=== PATIENT | female | born 1985 | race Caucasian/White ===

== ENCOUNTER 2022-11-19 11:12 | Outpatient (CLI) | payer OTHER, SELFPAY ==
--- NOTE | 2022-11-19 11:15 | CRLHL7_ITS ---
For Patients: As a result of the Cures Act, medical imaging exams and procedure reports are released immediately into your electronic medical record. You may view this report before your referring provider. If you have questions, please contact your health care provider. INDICATION: Lower leg pain COMPARISON: None. TECHNIQUE: A compression venous ultrasound exam was performed of the left lower extremity using zurita-scale imaging, color Doppler and spectral Doppler analysis. FINDINGS: Hypoechoic incompletely compressible clot noted within the distal left popliteal vein. Additional hypoechoic noncompressible clot located within the posterior tibial and peroneal veins. The left femoral vein and common femoral vein are patent. The deep femoral vein is also patent, as visualized. Hypoechoic noncompressible clot also located within the left greater saphenous vein within the mid and distal calf. Normal patency of the right common femoral vein. IMPRESSION: Positive exam for DVT within the left distal popliteal vein, posterior tibial veins and peroneal veins. Superficial clot within the mid and left calf involving the greater saphenous vein. Dr. Landry aware of the above findings and the patient has been sent to the emergency department. Dictated by Ángel Moncada MD @ 11/19/2022 12:14:15 PM (Electronically Signed)
== END 2022-11-19 11:13 | disposition home or self-care (01) ==
PROVIDERS: Visit Provider Family Medicine
DX: M79.662 Pain in left lower leg (principal); I82.4Z2 Acute embolism and thrombosis of unspecified deep veins of left distal lower extremity; I82.442 Acute embolism and thrombosis of left tibial vein
CPT/HCPCS: 93971

== ENCOUNTER 2022-11-19 11:53 | Observation (INO) | payer OTHER, SELFPAY ==
[2022-11-19] VITALS (26 sets, daily range): BP systolic 115–152; BP diastolic 17–110; PULSE 64–93; RESP 14–18; TEMP 35.5–36.8; O2SAT 94–100; BMI 30.7; BMI 31.2
--- NOTE | 2022-11-19 12:46 | CRLHL7_ITS ---
For Patients: As a result of the Century Cures Act, medical imaging exams and procedure reports are released immediately into your electronic medical record. You may view this report before your referring provider. If you have questions, please contact your health care provider. INDICATION: DVT, shortness of breath, recent COVID. COMPARISON: None. TECHNIQUE: CT chest angiogram PE protocol acquired with 95 cc of Omnipaque 350 IV contrast. Coronal and sagittal reconstructions. Axial 2D MIPS. FINDINGS: Normal heart size. Normal caliber thoracic aorta and central pulmonary arteries. There are acute pulmonary emboli in the segmental and subsegmental branches of all the lobes bilaterally. Clot burden is moderate. No evidence of right heart strain. The RV/LV ratio measures 0.9. No pericardial effusion. No thoracic lymphadenopathy. The imaged thyroid gland is normal in appearance. There is a small pleural-based density in the lateral right lower lobe which may represent a focus of infection or developing pulmonary infarct (series 5, image 107). Bibasilar atelectasis left greater than right. No pleural effusion or pneumothorax. No suspicious pulmonary nodules. No central endobronchial lesion or significant bronchial wall thickening. Cholecystectomy. The visualized upper abdomen is otherwise unremarkable. The bones are within normal limits. IMPRESSION: 1. Moderate burden acute pulmonary emboli involving bilateral segmental and subsegmental pulmonary artery branches. No evidence of right heart strain. 2. Small pleural-based density in the lateral right lower lobe may represent a focus of infection or developing pulmonary infarct. 3. Findings discussed with Anthony Cruz at 3:38 p.m. on 11/19/2022. Please note that all CT scans at this facility use dose modulation, iterative reconstruction, and/or weight-based dosing when appropriate to reduce radiation dose to as low as reasonably achievable. Dictated by Jessica Da Silva MD @ 11/19/2022 3:29:56 PM (Electronically Signed)
[2022-11-19 13:19] LABS: Chloride* 109 mmol/L (96-114); Sodium* 141 mmol/L (135-149)
[2022-11-19 13:20] LABS: Potassium* 4.4 mmol/L (3.6-5.1)
--- NOTE | 2022-11-19 13:20 | ED_ITS ---
HPI - General Adult General Chief complaint: Shortness of Breath/Dyspnea Stated complaint: DVT, shortness of breath Time Seen by Provider: 11/19/22 13:16 History of Present Illness HPI narrative: Patient was seen in clinic for left leg pain and was subsequently dx with dvt. Due to ongoing SOB and recent Covid it was recommended she be ruled out for PE. 37-year-old woman presenting to the emergency department with concern of shortness of breath. Worse over the last couple of weeks. Was also recently diagnosed with COVID. Clearly there are concerns for potential pulmonary embolus. No fever. Has been notably exertionally dyspneic. No complaint of abdominal pain. Included below is ultrasound from earlier today positive DVT. In further review of systems later does not recall history of anemia, heavy menstrual bleeding. No melena or hematochezia noted. IMPRESSION: Positive exam for DVT within the left distal popliteal vein, posterior tibial veins and peroneal veins. Superficial clot within the mid and left calf involving the greater saphenous vein. Related Data Home Medications Medication Instructions Recorded Confirmed cyclobenzaprine 5 mg tablet 5 mg PO TID PRN 03/29/22 11/23/22 gabapentin 300 mg capsule 1,200 mg PO HS 03/29/22 11/23/22 rimegepant 75 mg disintegrating 75 mg PO DAILY PRN 03/29/22 11/23/22 tablet (Nurtec ODT) topiramate 25 mg tablet 50 - 100 mg PO BID 03/29/22 11/23/22 venlafaxine 225 mg tablet,extended 225 mg PO HS 03/29/22 11/23/22 release 24 hr propranolol 20 mg tablet 20 mg PO BID 11/19/22 11/23/22 Previous Rx's Medication Instructions Recorded codeine 10 mg-guaifenesin 100 mg/5 5 ml PO Q4-6H PRN cough #120 mL 03/29/22 mL oral liquid fluticasone 250 mcg-salmeterol 50 1 inh inhalation BID #60 ea 11/19/22 mcg/dose blistr powdr for inhalation (Advair Diskus) montelukast 10 mg tablet 10 mg PO QHS #90 tabs 11/19/22 (Singulair) albuterol sulfate 90 mcg/actuation 2 puff inhalation Q4H PRN 11/20/22 aerosol inhaler shortness of breath or wheezing #8.5 grams iron,carbonyl 65 mg-vitamin C 125 1 tab PO BID #60 tabs 11/23/22 mg tablet,delayed release (Vitron-C) peg 3350-electrolytes 236 4,000 ml PO DIRECTED #4,000 mL 11/23/22 gram-22.74 gram-6.74 gram-5.86 gram solution (Golytely) peg 3350-electrolytes 236 240 ml PO ONCE #4,000 mL 11/26/22 gram-22.74 gram-6.74 gram-5.86 gram solution (Golytely) apixaban 5 mg (74 tabs) tablets in 5 mg PO BID #74 ea 12/14/22 a dose pack omeprazole 20 mg capsule,delayed 20 mg PO Q12H #60 caps 12/14/22 release Allergies Allergy/AdvReac Type Severity Reaction Status Date / Time neomycin Allergy Mild Itching Verified 11/23/22 11:31 Review of Systems Status of ROS: Reports: 6 or more systems reviewed and unremarkable except as noted in History and below [facility] Medical History (Updated 12/02/22 @ 14:10 by Todd Landry MD) Anemia ?D64.9 - Anemia, unspecified (ICD-10) COVID-19 ?U07.1 - COVID-19 (ICD-10) 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 (ICD-10) Microcytic anemia ?D50.9 - Iron deficiency anemia, unspecified (ICD-10) Chronic headache ?R51.9 - Headache, unspecified (ICD-10) ?G89.29 - Other chronic pain (ICD-10) Asthma, allergic ?J45.909 - Unspecified asthma, uncomplicated (ICD-10) Surgical History (Updated 11/19/22 @ 19:11 by Man Ceballos MD) History of section ?Z98.891 - History of uterine scar from previous surgery (ICD-10) History of laparoscopic cholecystectomy ?Z90.49 - Acquired absence of other specified parts of digestive tract (ICD- 10) Family History (Updated 11/19/22 @ 19:12 by Man Ceballos MD) Mother Breast cancer Fibromyalgia BRCA gene mutation positive in female Father ALS (amyotrophic lateral sclerosis) Social History (Updated 11/19/22 @ 19:13 by Man Ceballos MD) Narrative: 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 She does not smoke. What is your current living situation?: I presently have a place to live Problems where you live: no known problems Problems where you live details: none In the past 12 months, utilities in danger of being shut off: no In past 12 months, lack of transportation kept you from medical appts, meetings, work, or getting things needed for daily living: no In the past 12 mos, have been you worried that your food would run out before you had money to buy more?: never true In the past 12 mos, the food you bought just didn't last and you didn't have money to buy more?: never true Highest level of school completed/degree received: Master's degree Smoking Status: Never smoker Do you use any of these nicotine containing products: None Second hand tobacco smoke exposure: No How often do you have a drink containing alcohol: monthly or less How often do you have six or more drinks on one occasion: Never AUDIT-C Alcohol total score: 1 Non-prescribed substance use: denies use Caffeine: No How often does anyone, including family, friends and others, physically hurt you : never How often does anyone, including family, friends and others, insult or talk down to you: never How often does anyone, including family, friends and others, threaten you with harm: never How often does anyone, including family, friends and others, scream or curse at you: never service: No Exam Narrative: Exam Narrative: Pleasant. NAD. Breathing easily. Skin is warm and dry. Pale lips/mucous membranes. Lower extremities with prominent left leg varicose veins and mid calf tenderness. Heart is in mildly elevated rate in a regular rhythm without murmur rub or gallop. Lungs appear to be clear. Abdomen soft. Const: Vital Signs, click to edit/add: Vital Signs - 24 hr 11/19/22 11:59 Temperature 97.4 F L Pulse Rate [Pulse Oximeter] 93 Respiratory Rate 18 Blood Pressure [Ri ght Upper Arm] 136/85 Pulse Oximetry 100 Oxygen Delivery Me thod Room Air Documenting provider has reviewed patient's vital signs: yes Course Vital Signs Vital signs: Initial Vital Signs Temperature 97.4 F L 11/19/22 11:59 Temperature Source Temporal Artery Scan 11/19/22 11:59 Pulse Rate 93 11/19/22 11:59 Respiratory Rate 18 11/19/22 11:59 Blood Pressure 136/85 11/19/22 11:59 Blood Pressure Mean 102 11/19/22 11:59 Pulse Oximetry 100 11/19/22 11:59 Oxygen Delivery Method Room Air 11/19/22 11:59 Vital Signs Temperature 97.4 F L 11/19/22 11:59 Pulse Rate 93 11/19/22 11:59 Respiratory Rate 18 11/19/22 11:59 Blood Pressure 136/85 11/19/22 11:59 Pulse Oximetry 100 11/19/22 11:59 Oxygen Delivery Method Room Air 11/19/22 11:59 Temperature 98 F 11/20/22 07:00 Pulse Rate 74 11/20/22 07:00 Respiratory Rate 18 11/20/22 07:00 Blood Pressure 127/87 11/20/22 07:00 Pulse Oximetry 100 11/20/22 07:00 Oxygen Delivery Method Room Air 11/20/22 07:00 Medical Decision Making MDM Narrative Medical decision making narrative: Dyspnea could be secondary to pulmonary embolus or pneumonia, pneumothorax, CHF, anemia. With recent DVT diagnosis increased dyspnea I think imaging of her chest regardless of labs. Will check corresponding labs. White count is mildly elevated. Surprisingly hemoglobin of 7.2. There is not appear to be any particular source. Looks to be microcytic distribution. Likely of some duration as she appears to be compensated. I did review CT images of the chest. Radiology over-read as below INDICATION: DVT, shortness of breath, recent COVID. COMPARISON: None. TECHNIQUE: CT chest angiogram PE protocol acquired with 95 cc of Omnipaque 350 IV contrast. Coronal and sagittal reconstructions. Axial 2D MIPS. FINDINGS: Normal heart size. Normal caliber thoracic aorta and central pulmonary arteries. There are acute pulmonary emboli in the segmental and subsegmental branches of all the lobes bilaterally. Clot burden is moderate. No evidence of right heart strain. The RV/LV ratio measures 0.9. No pericardial effusion. No thoracic lymphadenopathy. The imaged thyroid gland is normal in appearance. There is a small pleural-based density in the lateral right lower lobe which may represent a focus of infection or developing pulmonary infarct (series 5, image 107). Bibasilar atelectasis left greater than right. No pleural effusion or pneumothorax. No suspicious pulmonary nodules. No central endobronchial lesion or significant bronchial wall thickening. Cholecystectomy. The visualized upper abdomen is otherwise unremarkable. The bones are within normal limits. IMPRESSION: 1. Moderate burden acute pulmonary emboli involving bilateral segmental and subsegmental pulmonary artery branches. No evidence of right heart strain. 2. Small pleural-based density in the lateral right lower lobe may represent a focus of infection or developing pulmonary infarct. There are numerous reasons why Ms. Leal could be dyspneic at this point. Will be typed and screen. Will need coag studies. Challenging to anticoagulate in this setting. Will be needing transfusion. Discussed with hospitalist for admission. Lab Data Lab results reviewed: Yes I reviewed the patient's lab results Labs: Lab Results 11/19/22 11/19/22 11/19/22 Range/Units 12:55 13:18 14:05 WBC 13.20 H (4.50-11.00) K/uL RBC 3.85 L (4.00-5.20) m/uL Hgb 7.2 L* (12.0-16.0) gm/dL Hct 25.9 L (33.0-51.0) % MCV 67 L (80-100) fL MCH 19 L (26-34) pg MCHC 28 L (32-36) gm/dL RDW Coeff of Erick 17.6 H (11.5-15.5) % Plt Count 418 (140-440) K/uL Neut % (Auto) 85.3 H (42.0-72.0) % Lymph % (Auto) 9.8 L (20-44) % [place] % (Auto) 3.7 (0.0-11.0) % Eos % (Auto) 0.6 (0.0-7.0) % Baso % (Auto) 0.2 (0.0-3.0) % Neut # (Auto) 11.30 H (1.7-7.0) K/uL Lymph # (Auto) 1.30 (0.90-2.90) K/uL [place] # (Auto) 0.50 (0.00-0.90) K/UL Eos # (Auto) 0.10 (0.00-0.50) K/uL Baso # (Auto) 0.00 (0.00-0.30) K/uL Abs Immat Gran (auto) 0.10 (0.00-0.30) K/uL Imm/Tot Granulo (auto) 0.4 % Diff Slide Review Acceptable Review (Acceptable) Absolute Retic 0.08 (0.03-0.08) # Percent Retic 2.2 H (0.5-2.0) % Immature Retic Fraction 25.2 H (3.0-15.9) % Retic Hgb Equivalent 12.6 L (29.0-35.0) pg INR 1.02 (0.91-1.10) Sodium 141 (135-149) mmol/L Potassium 4.4 (3.6-5.1) mmol/L Chloride 109 (96-114) mmol/L Carbon Dioxide 22 (20-32) mmol/L Anion Gap 10 (7-15) mEq/L BUN 13 (5-24) mg/dL Creatinine 0.9 (0.5-1.5) mg/dL Estimated Creat Clear 78.56 Estimated GFR 83 ml/min Glucose 119 H (60-115) mg/dL Calcium 9.3 (8.4-10.6) mg/dL Iron 28 L (37-170) ug/dL TIBC 358 (265-497) ug/dL % Saturation 8 L (20-50) % NT-Pro-B Natriuret Pep 133 pg/mL HCG, Qual Negative (Negative) Lab Acknowledgement Test Added Blood Type O Positive Antibody Screen NEGATIVE Crossmatch (AHG) See Detail 11/19/22 Range/Units 16:09 WBC (4.50-11.00) K/uL RBC (4.00-5.20) m/uL Hgb (12.0-16.0) gm/dL Hct (33.0-51.0) % MCV (80-100) fL MCH (26-34) pg MCHC (32-36) gm/dL RDW Coeff of Erick (11.5-15.5) % Plt Count (140-440) K/uL Neut % (Auto) (42.0-72.0) % Lymph % (Auto) (20-44) % [place] % (Auto) (0.0-11.0) % Eos % (Auto) (0.0-7.0) % Baso % (Auto) (0.0-3.0) % Neut # (Auto) (1.7-7.0) K/uL Lymph # (Auto) (0.90-2.90) K/uL [place] # (Auto) (0.00-0.90) K/UL Eos # (Auto) (0.00-0.50) K/uL Baso # (Auto) (0.00-0.30) K/uL Abs Immat Gran (auto) (0.00-0.30) K/uL Imm/Tot Granulo (auto) % Diff Slide Review (Acceptable) Absolute Retic (0.03-0.08) # Percent Retic (0.5-2.0) % Immature Retic Fraction (3.0-15.9) % Retic Hgb Equivalent (29.0-35.0) pg INR (0.91-1.10) Sodium (135-149) mmol/L Potassium (3.6-5.1) mmol/L Chloride (96-114) mmol/L Carbon Dioxide (20-32) mmol/L Anion Gap (7-15) mEq/L BUN (5-24) mg/dL Creatinine (0.5-1.5) mg/dL Estimated Creat Clear Estimated GFR ml/min Glucose (60-115) mg/dL Calcium (8.4-10.6) mg/dL Iron (37-170) ug/dL TIBC (265-497) ug/dL % Saturation (20-50) % NT-Pro-B Natriuret Pep pg/mL HCG, Qual (Negative) Lab Acknowledgement Test Added Blood Type Antibody Screen Crossmatch (AHG) Discharge Plan Discharge Clinical Impression: DVT (deep venous thrombosis), Symptomatic anemia, Pulmonary emboli Patient Disposition: Admitted As Observation Condition: Stable Activity Level: Activity as Tolerated Discharge Diet: Regular
[2022-11-19 13:22] LABS: Anion Gap 10 mEq/L (7-15); Carbon Dioxide* 22 mmol/L (20-32); Creatinine* 0.9 mg/dL (0.5-1.5); Est. Creatinine Clearance* 78.56; Estimated Glomerular Filt Rate 83 ml/min
[2022-11-19 13:23] LABS: Blood Urea Nitrogen* 13 mg/dL (5-24); Calcium* 9.3 mg/dL (8.4-10.6); Glucose* 119 mg/dL (60-115); INR 1.02 (0.91-1.10)
[2022-11-19 13:25] LABS: HCG Qualitative Serum* Negative (Negative)
[2022-11-19 13:30] LABS: Basophils Percent Auto 0.2 % (0.0-3.0); Eosinophils Percent Auto 0.6 % (0.0-7.0); Hematocrit 25.9 % (33.0-51.0); Immature Granulocytes Pct Auto 0.4 %; Lymphocytes Percent Auto 9.8 % (20-44); Mean Corpuscular HGB Conc 28 gm/dL (32-36); Mean Corpuscular Hemoglobin 19 pg (26-34); Mean Corpuscular Volume 67 fL (80-100); Monocytes Percent Auto 3.7 % (0.0-11.0); Neutrophils Percent Auto 85.3 % (42.0-72.0); Platelet Count* 418 K/uL (140-440); RDW Coefficient of Variation % 17.6 % (11.5-15.5); Red Blood Count 3.85 m/uL (4.00-5.20)
[2022-11-19] MEDS: 0.9 % SODIUM CHLORIDE 1000 ml 1,000 ML IV (13:32)
[2022-11-19 13:38] LABS: Hemoglobin* 7.2 gm/dL (12.0-16.0); Slide Review Reflex Yes
[2022-11-19 13:53] LABS: Slide Review Acceptable Review (Acceptable)
[2022-11-19 13:54] LABS: NT Pro B Type NatriureticPept* 133 pg/mL
[2022-11-19 16:28] LABS: Immature Reticulocyte Fraction 25.2 % (3.0-15.9); Reticulocyte Hemoglobin Equivi 12.6 pg (29.0-35.0); Reticulocyte Percent 2.2 % (0.5-2.0); Reticulocytes Absolute 0.08 # (0.03-0.08)
[2022-11-19 16:39] LABS: Iron* 28 ug/dL (37-170)
[2022-11-19 16:48] LABS: Percent Iron Saturation 8 % (20-50); Total Iron Binding Capacity 358 ug/dL (265-497)
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
--- NOTE | 2022-11-19 19:44 | PC.NURSE ---
End of Shift: Pt arrived to unit via ED with reports of SOB and pain in left leg. Pt was receiving first of two units of blood upon arrival. Pt remained AO throughout shift, pleasant and cooperative. Reports living at home with , though is currently away at the [place] with family and is only reachable by a parking enforcement officer if necessary. Pt has support through her sister and mother in law as she has children at home. Pt reports pain at 2/10 stating she has a headache. Pt tolerating blood transfusion well. Independent in room, tolerating regular diet well.
[2022-11-19] MEDS: GABAPENTIN 300 MG CAPSULE 1200 MG PO (21:04)
[2022-11-19] MEDS: OMEPRAZOLE 20 MG CAPSULE DR PO (21:04)
[2022-11-19] MEDS: VENLAFAXINE ER 75 MG CAPSULE 225 MG PO (21:04)
[2022-11-19] MEDS: TOPIRAMATE 50 MG TABLET 100 MG PO (21:05)
[2022-11-19] MEDS: APIXABAN 5 MG TABLET 10 MG PO (21:54)
[2022-11-19] MEDS: SODIUM CHLORIDE 0.9 % (FLUSH) 10 ML SYRINGE 5 ML IVF (21:54)
[2022-11-19 21:58] LABS: Hemoglobin* 8.6 gm/dL (12.0-16.0)
[2022-11-20 04:02] VITALS: BP 151/100; PULSE 70; RESP 18; TEMP 36.8; O2SAT 99
[2022-11-20] MEDS: ACETAMINOPHEN 325 MG TABLET 650 MG PO (04:17)
[2022-11-20] MEDS: OMEPRAZOLE 20 MG CAPSULE DR PO (06:44)
[2022-11-20 07:00] VITALS: BP 127/87; PULSE 74; RESP 18; TEMP 36.6; O2SAT 100
[2022-11-20 07:50] LABS: Basophils Percent Auto 0.4 % (0.0-3.0); Eosinophils Percent Auto 5.1 % (0.0-7.0); Hematocrit 30.3 % (33.0-51.0); Immature Granulocytes Pct Auto 0.4 %; Lymphocytes Percent Auto 26.9 % (20-44); Mean Corpuscular HGB Conc 30 gm/dL (32-36); Mean Corpuscular Hemoglobin 21 pg (26-34); Mean Corpuscular Volume 69 fL (80-100); Monocytes Percent Auto 7.2 % (0.0-11.0); Platelet Count* 373 K/uL (140-440); RDW Coefficient of Variation % 18.6 % (11.5-15.5); Red Blood Count 4.37 m/uL (4.00-5.20); White Blood Count* 13.42 K/uL (4.50-11.00)
[2022-11-20 07:53] LABS: Slide Review Reflex No
--- NOTE | 2022-11-20 08:14 | P.DS_ITS ---
DS: Providers Provider Time Seen by Provider: 08:05 Date Seen: 11/20/22 Date of admission: 11/19/22 17:32 Primary care physician: Not a Local Provider Admitting Clinician: Man Ceballos MD Attending Physician on discharge: Dana Torres MD Date of Discharge: 11/20/22 DS: Diagnosis Discharge Diagnosis (1) Pulmonary emboli: Status: Acute Problem details: - Only provoking event was her COVID infection. Moderate burden though normal vital signs. Due to fairly severe anemia was admit to the hospital to initiate anticoagulation. - She did well and hemoglobin remained stable after blood transfusion while on anticoagulation. Continue anticoagulation with apixaban as an outpatient and follow-up with a care provider to determine length of treatment. (2) DVT (deep venous thrombosis): Status: Acute Problem details: LLE, treating with apixaban as above (3) Elevated systolic blood pressure reading without diagnosis of hypertension: Status: Acute Problem details: - Markedly elevated blood pressures in the acute care setting without history of hypertension. Follow-up with primary care provider later this week to recheck blood pressure and discuss if further monitoring or management is needed. (4) Microcytic anemia: Status: Acute Problem details: - Suspect this is chronic rather than acute. - Was symptomatic. Received 2 units PRBC with improvement of Hgb from 7.2 to 9. - Iron deficient - start oral iron for homegoing. Stop NSAIDs, start PPI. F/u with PCP this week. (5) COVID-19: Status: Acute Problem details: - diagnosed on November 02, 2022 DS: Summary Hospital Course Hospital Course: This is a 37-year-old female who was diagnosed with COVID-19 infection about 2 weeks ago. She has had some left lower extremity symptoms along with dyspnea and was diagnosed with a DVT and multiple PEs without right heart strain. Also noted on presentation was anemia which is likely contributing to dyspnea. She was admitted for anemia and PE and given 2 units packed red blood cells. She was also started on apixaban for treatment of PE and DVT. Overnight she has done well and hemoglobin is improved and stable after getting blood. She has not required any oxygen. Blood pressures are elevated and she has no known history of hypertension. She is discharged home today and will follow-up with her primary care provider later this week. Time Spent with Patient Time attestation: Total time spent providing and/or coordinating discharge services: Exam Narrative: Exam Narrative: General: No acute distress. Tight cough. Awake, alert, oriented. No pallor. No jaundice. Oropharynx: Clear. Mucous membranes moist. Cardiovascular: Regular rate and rhythm. No murmurs, gallops, or rubs. Respiratory: Clear to auscultation bilaterally. No wheezes or crackles. Abdomen: Bowel sounds present. Soft, nondistended, nontender. Extremities: No pedal edema. Prominent varicose veins of the left lower leg medially. Adjacent these she has an area tenderness and erythema, consistent with superficial thrombosis visualized with ultrasound yesterday. Const: Vital Signs, click to edit/add: Vital Signs - 24 hr 11/19/22 11:59 11/19/22 14:00 11/19/22 14:30 Temperature 97.4 F L Pulse Rate Pulse Rate [Pulse Oximeter] 93 Respiratory Rate 18 18 Blood Pressure 132/84 Blood Pressure [Ri ght Arm] Blood Pressure [Ri ght Upper Arm] 136/85 Pulse Oximetry 100 99 94 Oxygen Delivery Me thod Room Air Room Air Room Air 11/19/22 15:00 11/19/22 15:30 11/19/22 16:01 Temperature Pulse Rate 66 Pulse Rate [Pulse Oximeter] Respiratory Rate Blood Pressure Blood Pressure [Ri ght Arm] Blood Pressure [Ri ght Upper Arm] Pulse Oximetry 100 100 100 Oxygen Delivery Me thod Room Air Room Air Room Air 11/19/22 16:05 11/19/22 16:06 11/19/22 16:15 Temperature Pulse Rate 72 72 71 Pulse Rate [Pulse Oximeter] Respiratory Rate Blood Pressure 133/99 H Blood Pressure [Ri ght Arm] Blood Pressure [Ri ght Upper Arm] Pulse Oximetry 99 97 100 Oxygen Delivery Me thod Room Air 11/19/22 16:30 11/19/22 16:31 11/19/22 16:45 Temperature Pulse Rate 78 73 69 Pulse Rate [Pulse Oximeter] Respiratory Rate Blood Pressure 143/101 H Blood Pressure [Ri ght Arm] Blood Pressure [Ri ght Upper Arm] Pulse Oximetry 100 95 100 Oxygen Delivery Me thod 11/19/22 17:00 11/19/22 17:00 11/19/22 17:15 Temperature 97.6 F 97.6 F 97.9 F Pulse Rate 65 65 68 Pulse Rate [Pulse Oximeter] Respiratory Rate 14 14 14 Blood Pressure 138/95 H 138/95 H 143/93 H Blood Pressure [Ri ght Arm] Blood Pressure [Ri ght Upper Arm] Pulse Oximetry 96 96 100 Oxygen Delivery Me thod Room Air 11/19/22 17:15 11/19/22 17:38 11/19/22 17:42 Temperature 97.9 F 96 F L Pulse Rate 68 72 Pulse Rate [Pulse Oximeter] 74 Respiratory Rate 14 14 Blood Pressure 143/93 H Blood Pressure [Ri ght Arm] 152/97 H Blood Pressure [Ri ght Upper Arm] Pulse Oximetry 100 100 Oxygen Delivery Me thod Room Air Room Air 11/19/22 17:42 11/19/22 18:00 11/19/22 18:38 Temperature 98 F 96.8 F L Pulse Rate 64 69 Pulse Rate [Pulse Oximeter] Respiratory Rate 14 14 14 Blood Pressure 130/17 L 141/110 H Blood Pressure [Ri ght Arm] Blood Pressure [Ri ght Upper Arm] Pulse Oximetry 100 98 100 Oxygen Delivery Il thod Room Air 11/19/22 18:38 11/19/22 18:38 11/19/22 18:38 Temperature 96.8 F L 96.8 F L 96.8 F L Pulse Rate 76 79 71 Pulse Rate [Pulse Oximeter] Respiratory Rate 14 14 14 Blood Pressure 141/110 H 141/110 H 141/110 H Blood Pressure [Ri ght Arm] Blood Pressure [Ri ght Upper Arm] Pulse Oximetry 100 98 100 Oxygen Delivery Me thod 11/19/22 18:48 11/19/22 19:00 11/19/22 19:06 Temperature 96.8 F L 96.8 F L 96.0 F L Pulse Rate 75 79 Pulse Rate [Pulse Oximeter] Respiratory Rate 14 14 14 Blood Pressure 147/96 H 133/90 H Blood Pressure [Ri ght Arm] 133/90 H Blood Pressure [Ri ght Upper Arm] Pulse Oximetry 100 100 100 Oxygen Delivery Me thod Room Air 11/19/22 19:22 11/19/22 20:00 11/19/22 20:56 Temperature 96.2 F L 97.6 F 97.8 F Pulse Rate 75 74 68 Pulse Rate [Pulse Oximeter] Respiratory Rate 14 16 16 Blood Pressure 141/110 H 134/88 129/91 H Blood Pressure [Ri ght Arm] Blood Pressure [Ri ght Upper Arm] Pulse Oximetry 100 100 99 Oxygen Delivery Me thod 11/19/22 23:00 11/19/22 23:05 11/20/22 04:02 Temperature 98.3 F 98.3 F Pulse Rate 88 Pulse Rate [Pulse Oximeter] 73 70 Respiratory Rate 16 18 Blood Pressure Blood Pressure [Ri ght Arm] 115/63 151/100 H Blood Pressure [Ri ght Upper Arm] Pulse Oximetry 98 99 Oxygen Delivery Me thod Room Air Room Air DS: Data Data Completed and Pending Completed studies during hospitalization: Ordering Physician: Todd Landry M.D. Date of Service: 11/19/22 Procedure(s): US venous LE LT Accession Number(s): [id number] cc: Todd Landry M.D.; Provider,Not a Local~ For Patients: As a result of the Cures Act, medical imaging exams and procedure reports are released immediately into your electronic medical record. You may view this report before your referring provider. If you have questions, please contact your health care provider. INDICATION: Lower leg pain COMPARISON: None. TECHNIQUE: A compression venous ultrasound exam was performed of the left lower extremity using zurita-scale imaging, color Doppler and spectral Doppler analysis. FINDINGS: Hypoechoic incompletely compressible clot noted within the distal left popliteal vein. Additional hypoechoic noncompressible clot located within the posterior tibial and peroneal veins. The left femoral vein and common femoral vein are patent. The deep femoral vein is also patent, as visualized. Hypoechoic noncompressible clot also located within the left greater saphenous vein within the mid and distal calf. Normal patency of the right common femoral vein. IMPRESSION: Positive exam for DVT within the left distal popliteal vein, posterior tibial veins and peroneal veins. Superficial clot within the mid and left calf involving the greater saphenous vein. Dr. Landry aware of the above findings and the patient has been sent to the emergency department. Dictated by Ángel Moncada MD @ 11/19/2022 12:14:15 PM (Electronically Signed) Ordering Physician: Anthony Cruz M.D. Date of Service: 11/19/22 Procedure(s): CT angio chest PE protocol Accession Number(s): [id number] cc: Cruz,Anthony G M.D.; Provider,Not a Local~ For Patients: As a result of the Century Cures Act, medical imaging exams and procedure reports are released immediately into your electronic medical record. You may view this report before your referring provider. If you have questions, please contact your health care provider. INDICATION: DVT, shortness of breath, recent COVID. COMPARISON: None. TECHNIQUE: CT chest angiogram PE protocol acquired with 95 cc of Omnipaque 350 IV contrast. Coronal and sagittal reconstructions. Axial 2D MIPS. FINDINGS: Normal heart size. Normal caliber thoracic aorta and central pulmonary arteries. There are acute pulmonary emboli in the segmental and subsegmental branches of all the lobes bilaterally. Clot burden is moderate. No evidence of right heart strain. The RV/LV ratio measures 0.9. No pericardial effusion. No thoracic lymphadenopathy. The imaged thyroid gland is normal in appearance. There is a small pleural-based density in the lateral right lower lobe which may represent a focus of infection or developing pulmonary infarct (series 5, image 107). Bibasilar atelectasis left greater than right. No pleural effusion or pneumothorax. No suspicious pulmonary nodules. No central endobronchial lesion or significant bronchial wall thickening. Cholecystectomy. The visualized upper abdomen is otherwise unremarkable. The bones are within normal limits. IMPRESSION: 1. Moderate burden acute pulmonary emboli involving bilateral segmental and subsegmental pulmonary artery branches. No evidence of right heart strain. 2. Small pleural-based density in the lateral right lower lobe may represent a focus of infection or developing pulmonary infarct. 3. Findings discussed with Anthony Cruz at 3:38 p.m. on 11/19/2022. Please note that all CT scans at this facility use dose modulation, iterative reconstruction, and/or weight-based dosing when appropriate to reduce radiation dose to as low as reasonably achievable. Dictated by Jessica Da Silva MD @ 11/19/2022 3:29:56 PM (Electronically Signed) Labs on day of discharge: Labs from last 24 hours 11/20/22 11/19/22 11/19/22 06:16 21:50 16:09 WBC 13.42 H RBC 4.37 Hgb 9.0 L 8.6 L Hct 30.3 L MCV 69 L MCH 21 L MCHC 30 L RDW Coeff of Erick 18.6 H Plt Count 373 Neut % (Auto) 60.0 Lymph % (Auto) 26.9 Sanders % (Auto) 7.2 Eos % (Auto) 5.1 Baso % (Auto) 0.4 Neut # (Auto) 8.10 H Lymph # (Auto) 3.60 H Sanders # (Auto) 1.00 H Eos # (Auto) 0.70 H Baso # (Auto) 0.10 Abs Immat Gran (auto) 0.10 Imm/Tot Granulo (auto) 0.4 Diff Slide Review Absolute Retic Percent Retic Immature Retic Fraction Retic Hgb Equivalent INR Sodium Potassium Chloride Carbon Dioxide Anion Gap BUN Creatinine Estimated Creat Clear Estimated GFR Glucose Calcium Iron TIBC % Saturation NT-Pro-B Natriuret Pep HCG, Qual Lab Acknowledgement Test Added Blood Type Antibody Screen Crossmatch ([facility]) 11/19/22 11/19/22 11/19/22 14:05 13:18 12:55 WBC 13.20 H RBC 3.85 L Hgb 7.2 L* Hct 25.9 L MCV 67 L MCH 19 L MCHC 28 L RDW Coeff of Erick 17.6 H Plt Count 418 Neut % (Auto) 85.3 H Lymph % (Auto) 9.8 L Sanders % (Auto) 3.7 Eos % (Auto) 0.6 Baso % (Auto) 0.2 Neut # (Auto) 11.30 H Lymph # (Auto) 1.30 Sanders # (Auto) 0.50 Eos # (Auto) 0.10 Baso # (Auto) 0.00 Abs Immat Gran (auto) 0.10 Imm/Tot Granulo (auto) 0.4 Diff Slide Review Acceptable Review Absolute Retic 0.08 Percent Retic 2.2 H Immature Retic Fraction 25.2 H Retic Hgb Equivalent 12.6 L INR 1.02 Sodium 141 Potassium 4.4 Chloride 109 Carbon Dioxide 22 Anion Gap 10 BUN 13 Creatinine 0.9 Estimated Creat Clear 78.56 Estimated GFR 83 Glucose 119 H Calcium 9.3 Iron 28 L TIBC 358 % Saturation 8 L NT-Pro-B Natriuret Pep 133 HCG, Qual Negative Lab Acknowledgement Test Added Blood Type O Positive Antibody Screen NEGATIVE Crossmatch ([facility]) See Detail Discharge Plan Discharge Disposition: Home, Self-Care Date of Admission: 11/19/22 17:32 Attending Provider on Discharge: Dana Torres Primary Care Provider: Provider,Not a Local Condition: Stable Anticipated Discharge Date/Time: 11/20/22 08:20 Discharge Medications: New apixaban 5 mg (74 tabs) tablets,dose pack See Rx Instructions .ROUTE .COMPLEX Qty: 74 0RF Rx Instructions: orally per package directions omeprazole 20 mg Capsule,Delayed Release(Dr/Ec) 20 mg PO Q12H Qty: 60 0RF Continued cyclobenzaprine 5 mg tablet 5 mg PO TID PRN Patient Comments: TAKE 1 TABLET BY MOUTH THREE TIMES A DAY NEEDED FOR MUSCLE SPASMS gabapentin 300 mg capsule 1,200 mg PO HS Patient Comments: Nurtec ODT 75 mg tablet,disintegrating 75 mg PO DAILY PRN venlafaxine 225 mg tablet extended release 24hr 225 mg PO HS topiramate 25 mg tablet 50 - 100 mg PO BID Patient Comments: TAKE 2 (50 MG) TABLETS BY MOUTH IN THE MORNING, AND TAKE 4 TABLETS (100 MG) AT BEDTIME. codeine-guaifenesin 10-100 mg/5 mL liquid 5 ml PO Q4-6H PRN (Reason: cough) Qty: 120 0RF fluticasone propion-salmeterol [Advair Diskus] 250-50 mcg/dose blister with device 1 inh inhalation BID Qty: 60 5RF montelukast [Singulair] 10 mg tablet 10 mg PO QHS Qty: 90 3RF propranolol 20 mg tablet 20 mg PO BID Changed albuterol sulfate 90 mcg/actuation HFA aerosol inhaler 2 puff inhalation Q4H PRN (Reason: shortness of breath or wheezing) Qty: 8.5 0RF Discontinued naproxen 500 mg tablet 500 mg PO BID Patient Comments: doxycycline hyclate 100 mg capsule 100 mg PO BID Qty: 20 1RF diclofenac potassium 50 mg tablet 50 mg PO BID Qty: 60 1RF Discharge Orders: Discharge Order (Routine); Ordered 11/20/22 Ordered By: Dana Torres Patient Education: Apixaban (By mouth), Asthma (DC), Deep Vein Thrombosis (DC) Additional Instructions: - Avoid NSAIDs - You are at risk for bleeding while on Apixiban, which is a blood thinner. Avoid activities that put you at risk of getting cut or bruised. If bleeding doesn't stop within 10 minutes or you are bleeding heavily, seek medical attention. Activity Level: Activity as Tolerated Discharge Diet: Regular Follow Up Appointments: Todd Landry MD [Staff Physician] - (This week - check hemoglobin) Forms: MyHealth Info Instructions
[2022-11-20] MEDS: APIXABAN 5 MG TABLET 10 MG PO (10:12)
--- NOTE | 2022-11-20 10:58 | PC.NURSE ---
Eliquis dose was given prior to d/c at 1015, pt had initially requested to wait until she got home however changed her mind. Medications reviewed with patient. discussed s/s to seek medical attention. mom present for d/c. pt and mom verbalized understanding. IV removed without issue. belongings form reviewed and signed. pt discharged at 1040, home with family.
== END 2022-11-20 10:40 | disposition home or self-care (01) ==
LOC: ED 16:14 → MEDSURG 17:35
PROVIDERS: Emergency Medicine; Admitting Provider Family Medicine; Emergency Provider Family Medicine; Visit Provider Family Medicine
DX: I26.99 Other pulmonary embolism without acute cor pulmonale (principal); I82.890 Acute embolism and thrombosis of other specified veins; D50.9 Iron deficiency anemia, unspecified; I82.432 Acute embolism and thrombosis of left popliteal vein; I82.442 Acute embolism and thrombosis of left tibial vein; K64.5 Perianal venous thrombosis; I82.812 Embolism and thrombosis of superficial veins of left lower extremity; I82.462 Acute embolism and thrombosis of left calf muscular vein; D72.829 Elevated white blood cell count, unspecified; R03.0 Elevated blood-pressure reading, without diagnosis of hypertension; J45.909 Unspecified asthma, uncomplicated; R06.00 Dyspnea, unspecified; Z86.16 Personal history of COVID-19; M79.672 Pain in left foot; M72.2 Plantar fascial fibromatosis; Z98.891 History of uterine scar from previous surgery; Z90.49 Acquired absence of other specified parts of digestive tract
CPT/HCPCS: 36415; 36430; 71275; 80048; 82270; 83540; 83550; 83880; 84703; 85018; 85025; 85045; 85610; 86850; 86900; 86901; 86922; 96360; 99284; 99285; G0378; A9270; J7030; P9016; Q9967

== ENCOUNTER 2022-11-23 08:43 | Outpatient (CLI) | payer OTHER, SELFPAY | END 2022-11-23 08:44 | disposition home or self-care (01) | PROVIDERS: Visit Provider Family Medicine | DX: D50.9 Iron deficiency anemia, unspecified (principal); R03.0 Elevated blood-pressure reading, without diagnosis of hypertension; I26.99 Other pulmonary embolism without acute cor pulmonale | CPT/HCPCS: 80053 ==

== ENCOUNTER 2022-11-24 11:14 | Outpatient (CLI) | payer OTHER, SELFPAY | END 2022-11-24 11:15 | disposition home or self-care (01) | LOC: NFLDREF 11-26 14:39 | PROVIDERS: Visit Provider Family Medicine | DX: D50.9 Iron deficiency anemia, unspecified (principal) | CPT/HCPCS: 87338 ==

== ENCOUNTER 2023-01-10 08:26 | Outpatient (CLI) | payer OTHER, SELFPAY | END 2023-01-10 08:27 | disposition home or self-care (01) | PROVIDERS: Visit Provider Physician Assistant Medical | DX: R06.00 Dyspnea, unspecified (principal); D64.9 Anemia, unspecified; R03.0 Elevated blood-pressure reading, without diagnosis of hypertension | CPT/HCPCS: 82607; 82746 ==

== ENCOUNTER 2023-01-20 08:47 | Outpatient (CLI) | payer OTHER, SELFPAY | END 2023-01-20 08:48 | disposition home or self-care (01) | LOC: NFLDREF 01-28 04:13 | PROVIDERS: Visit Provider Family Medicine | DX: D61.818 Other pancytopenia (principal); R53.83 Other fatigue | CPT/HCPCS: 84443 ==

== ENCOUNTER 2023-03-21 19:11 | Outpatient (CLI) | payer BC, SELFPAY | END 2023-03-21 19:12 | disposition home or self-care (01) | PROVIDERS: Visit Provider Family Medicine | DX: I26.99 Other pulmonary embolism without acute cor pulmonale (principal); D64.9 Anemia, unspecified; E03.9 Hypothyroidism, unspecified | CPT/HCPCS: 80053; 81241; 82728; 83090; 83540; 84443; 85300; 85302; 85306; 85610; 85613; 85730; 86147 ==

== ENCOUNTER 2023-03-24 15:52 | Outpatient (CLI) | payer BC, SELFPAY ==
--- NOTE | 2023-03-24 16:00 | CRLHL7_ITS ---
For Patients: As a result of the Century Cures Act, medical imaging exams and procedure reports are released immediately into your electronic medical record. You may view this report before your referring provider. If you have questions, please contact your health care provider. INDICATION: Leg pain. History of DVT. TECHNIQUE: Amos-scale two-dimensional ultrasound without and with compression as well as color-flow and spectral Doppler of the lower extremity veins bilaterally. COMPARISON: None. FINDINGS: Normal compressibility of and flow within the common femoral, superficial femoral, popliteal, posterior tibial, profunda, and greater saphenous veins is demonstrated bilaterally. No thrombus is identified. IMPRESSION: Negative bilateral lower extremity venous Doppler study. Dictated by Man Savage MD @ 03/25/2023 11:07:48 AM (Electronically Signed)
== END 2023-03-24 15:53 | disposition home or self-care (01) ==
LOC: US 15:53
PROVIDERS: PCP Family Medicine; Visit Provider Family Medicine
DX: M79.604 Pain in right leg (principal); I26.99 Other pulmonary embolism without acute cor pulmonale; I82.409 Acute embolism and thrombosis of unspecified deep veins of unspecified lower extremity; Z86.718 Personal history of other venous thrombosis and embolism
CPT/HCPCS: 93970

== ENCOUNTER 2023-07-05 09:00 | Outpatient (RCR) | payer BC, SELFPAY ==
[2023-06-22 16:22] LABS: Basophils Absolute Auto 0.01 K/uL (0.00-0.30); Basophils Percent Auto 0.1 % (0.0-3.0); Eosinophils Absolute Auto 0.11 K/uL (0.00-0.50); Eosinophils Percent Auto 1.4 % (0.0-7.0); Hematocrit 37.3 % (33.0-51.0); Hemoglobin* 11.2 gm/dL (12.0-16.0); Immature Granulocytes Abs Auto 0.02 K/uL (0.00-0.30); Immature Granulocytes Pct Auto 0.2 %; Lymphocytes Absolute Auto 2.75 K/uL (0.90-2.90); Lymphocytes Percent Auto 34.3 % (20-44); Mean Corpuscular HGB Conc 30 gm/dL (32-36); Mean Corpuscular Hemoglobin 25 pg (26-34); Mean Corpuscular Volume 82 fL (80-100); Monocytes Percent Auto 7.6 % (0.0-11.0); Neutrophils Absolute Auto 4.51 K/uL (1.7-7.0); Neutrophils Percent Auto 56.4 % (42.0-72.0); Platelet Count* 267 K/uL (140-440); RDW Coefficient of Variation % 14.7 % (11.5-15.5); Red Blood Count 4.53 m/uL (4.00-5.20); White Blood Count* 8.01 K/uL (4.50-11.00)
[2023-06-22 16:26] LABS: Slide Review Reflex No
[2023-06-22 17:24] LABS: Iron* 41 ug/dL (37-170); Vitamin B12* 339 pg/mL (243-894)
[2023-06-22 17:33] LABS: Percent Iron Saturation 9 % (20-50); Total Iron Binding Capacity 434 ug/dL (265-497)
[2023-06-22 18:02] LABS: Ferritin* 4.9 ng/mL (6.24-137.0)
[2023-06-24 11:01] LABS: Folate, Serum 20.7 ng/mL (>=5.9)
[2023-06-24 17:05] LABS: Cardiolipin Antibody IgA <10 APL (<=11); Cardiolipin Antibody IgG <10 GPL (<=14); Cardiolipin Antibody IgM 16 MPL (<=12)
[2023-06-25 00:32] LABS: B2Glycoprotein 1, IgG Antibody <10 SGU (<=20); B2Glycoprotein 1, IgM Antibody 19 SMU (<=20)
[2023-06-26 09:58] LABS: PT PCR Specimen Whole Blood; Prothrombin(F2)G20210A Variant Negative
== END 2023-11-20 23:59 | disposition home or self-care (01) ==
LOC: CCIC 09:00
PROVIDERS: PCP Family Medicine; Referring Provider Family Medicine; Visit Provider Internal Medicine Hematology & Oncology
DX: R76.0 Raised antibody titer (principal); D50.9 Iron deficiency anemia, unspecified; Z86.718 Personal history of other venous thrombosis and embolism; Z86.711 Personal history of pulmonary embolism; Z79.01 Long term (current) use of anticoagulants
CPT/HCPCS: 36415; 81240; 82607; 82728; 82746; 83540; 83550; 85025; 86146; 86147; 99202; 99204; 99213; 99214; G0463

== ENCOUNTER 2023-07-22 07:37 | Outpatient (CLI) | payer OTHER, SELFPAY ==
--- NOTE | 2023-07-22 08:00 | CT_ITS ---
Patient: ADÁN LEE Facility:?[facility] Patient ID:?[id number] Site Patient ID:?[id number]. Site :?[id number] Study:?CT-Head w/o-07/22/2023 7:53:50 AM Ordering Physician:Ana Steele Final Report: INDICATION: Concussion with history of loss of consciousness. TECHNIQUE: CT images were obtained from foramen magnum to vertex without contrast multiplanar reconstructions. FINDINGS: Ventricles are normal in size and shape there is no evidence of acute intracranial hemorrhage. There are no subdural or epidural fluid collections. There is no mass effect. There is preservation of zurita-white interface no focal edema or evidence of infarction. No posterior fossa hemorrhage or mass effect. There is opacification of the right ethmoid and maxillary sinuses consistent with sinus inflammation. Bony calvarium intact with no evidence of fracture. IMPRESSION: 1. Negative CT brain without contrast. No evidence of acute intracranial abnormality. 2. Right maxillary and ethmoid sinus opacification consistent with inflammation. Please note that all CT scans at this facility use dose modulation, iterative reconstruction, and/or weight-based dosing when appropriate to reduce radiation dose to as low as reasonably achievable. Dictated by Kei Mclean MD @ 07/22/2023 8:11:54 AM Signed by:?Kei Mclean MD @07/22/2023 8:11:54 AM (Electronic Signature)
== END 2023-07-22 07:38 | disposition home or self-care (01) ==
LOC: CT 07:38
PROVIDERS: PCP Family Medicine; Visit Provider Physician Assistant Medical
DX: S06.0XAA Concussion with loss of consciousness status unknown, initial encounter (principal); J32.0 Chronic maxillary sinusitis; J32.2 Chronic ethmoidal sinusitis
CPT/HCPCS: 70450

== ENCOUNTER 2023-09-02 09:44 | Outpatient (CLI) | payer BC, SELFPAY | END 2023-09-02 09:45 | disposition home or self-care (01) | LOC: NFLDREF 09-04 03:19 | PROVIDERS: PCP Family Medicine; Referring Provider Family Medicine; Visit Provider Family Medicine | DX: D64.9 Anemia, unspecified (principal) | CPT/HCPCS: 82728; 83540; 83550 ==

== ENCOUNTER 2023-11-14 20:03 | Outpatient (CLI) | payer BC, SELFPAY ==
[2023-11-14 20:37] LABS: Hemoglobin* 9.9 gm/dL (12.0-16.0)
[2023-11-14 20:59] LABS: D Dimer Quantitative* 0.45 ug/ml (0.00-0.50)
[2023-11-14 20:59] LABS: Iron* 37 ug/dL (37-170)
[2023-11-17 16:34] LABS: Cardiolipin Antibody IgA <10 APL (<=11); Cardiolipin Antibody IgG <10 GPL (<=14); Cardiolipin Antibody IgM 18 MPL (<=12)
== END 2023-11-14 20:04 | disposition home or self-care (01) ==
LOC: LAB 20:06
PROVIDERS: PCP Family Medicine; Visit Provider Internal Medicine Hematology & Oncology
DX: D64.9 Anemia, unspecified (principal); R76.0 Raised antibody titer; I26.99 Other pulmonary embolism without acute cor pulmonale
CPT/HCPCS: 36415; 83540; 85018; 85379; 86147

== ENCOUNTER 2023-12-25 14:04 | Emergency (ER) | payer BC, SELFPAY ==
[2023-12-25 14:11] VITALS: BP 125/78; PULSE 78; RESP 18; TEMP 36.4; O2SAT 100; BMI 30.5
--- NOTE | 2023-12-25 14:28 | CRLHL7_ITS ---
For Patients: As a result of the Century Cures Act, medical imaging exams and procedure reports are released immediately into your electronic medical record. You may view this report before your referring provider. If you have questions, please contact your health care provider. INDICATION: Left leg pain, history of DVT and pulmonary embolism COMPARISON: 03/24/2023 TECHNIQUE: Amos-scale, color, and duplex Doppler imaging of the left lower extremity veins veins. Compression and augmentation attempted where anatomically and clinically feasible. FINDINGS: Laterality: Left Examined veins: Common femoral, femoral, popliteal, peroneal, posterior tibial Proximal greater saphenous The examined veins are patent with normal grayscale appearance and normal compressibility where anatomically feasible. Normal color Doppler flow. Normal venous waveforms on duplex Doppler ultrasound with normal augmentation. The left femoral and popliteal veins are incidentally noted to be duplicated. The right common femoral vein is sampled for comparison and is normal. IMPRESSION: No deep vein thrombosis in the left lower extremity. Dictated by Rosina Jacobs MD @ 12/25/2023 3:47:00 PM (Electronically Signed)
--- NOTE | 2023-12-25 14:48 | ED.GENADULT ---
HPI - General Adult General Date Seen: 12/25/23 Chief complaint: Extremity Pain/Injury, Lower Stated complaint: Possible blood clot L leg Time Seen by Provider: 12/25/23 14:18 Source: patient Mode of arrival: ambulatory Limitations: no limitations History of Present Illness HPI narrative: Patient is a 38-year-old female presenting for left calf pain. She states there is a stray pit of area to her medial left calf that is tender. She states she has had several blood clots last year and just this take it off blood thinners about a month ago. She is being tested for clotting disorders at this time. She states this feels like a previous blood clots so came in for evaluation. Denies weakness, numbness, chest pain, shortness of breath. Symptoms started this morning. No other concerns noted. Does have a history of varicocele veins. Related Data Home Medications ?Medication ?Instructions ?Recorded ?Confirmed rimegepant 75 mg disintegrating 75 mg PO DAILY PRN 03/29/22 12/06/23 tablet (Nurtec ODT) topiramate 25 mg tablet 50 - 100 mg PO BID 03/29/22 12/06/23 venlafaxine 225 mg tablet,extended 225 mg PO HS 03/29/22 12/06/23 release 24 hr propranolol 20 mg tablet 20 mg PO BID 11/19/22 12/06/23 gabapentin 300 mg capsule 1,500 mg PO HS 09/01/23 12/06/23 Previous Rx's ?Medication ?Instructions ?Recorded albuterol sulfate 90 mcg/actuation 2 puff inhalation Q4H PRN 11/20/22 aerosol inhaler shortness of breath or wheezing #8.5 grams iron,carbonyl 65 mg-vitamin C 125 1 tab PO BID #60 tabs 11/23/22 mg tablet,delayed release (Vitron-C) levothyroxine 75 mcg tablet 75 mcg PO QDAY #90 tabs 05/02/23 (Synthroid) omeprazole 40 mg capsule,delayed 40 mg PO QDAY #90 caps 07/21/23 release diazepam 5 mg tablet (Valium) 2.5 - 5 mg (0.5 - 1 x 5 mg) PO BID 07/28/23 PRN muscle spasm #30 tabs prednisone 20 mg tablet 20 mg PO BID #10 tabs 07/28/23 apixaban 5 mg tablet (Eliquis) 5 mg PO BID #180 tabs 08/11/23 cyclobenzaprine 5 mg tablet 5 mg PO TID PRN muscle spasm #30 09/19/23 tabs Allergies Allergy/AdvReac Type Severity Reaction Status Date / Time hydrocortisone Allergy Severe Ear Canal Verified 12/16/23 09:20 [From [facility] ([id number])] neomycin Allergy Severe Ear Canal Verified 12/16/23 09:20 [From [facility] ([id number])] polymyxin B Allergy Severe Ear Canal Verified 12/16/23 09:20 [From [facility]ation ([id number])] Review of Systems Narrative: Pertinent systems reviewed and were negative unless stated in HPI PFSH PFS Medical History (Updated 12/25/23 @ 15:56 by Yousuf Oviedo DO) Muscle spasm ?M62.838 - Other muscle spasm (ICD-10) Concussion ?S06.0XAA - Concussion with loss of consciousness status unknown, initial encounter (ICD-10) Neck pain ?M54.2 - Cervicalgia (ICD-10) GERD (gastroesophageal reflux disease) ?K21.9 - Gastro-esophageal reflux disease without esophagitis (ICD-10) Hypothyroidism ?E03.9 - Hypothyroidism, unspecified (ICD-10) History of blood transfusion (~11/19/22) ?Z92.89 - Personal history of other medical treatment (ICD-10) History of pre-eclampsia ?Z87.59 - Personal history of other complications of , childbirth and the puerperium (ICD-10) Hx gestational diabetes ?Z86.32 - Personal history of gestational diabetes (ICD-10) Anemia ?D64.9 - Anemia, unspecified (ICD-10) COVID-19 ?U07.1 - COVID-19 (ICD-10) 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 (ICD-10) Microcytic anemia ?D50.9 - Iron deficiency anemia, unspecified (ICD-10) Chronic headache ?R51.9 - Headache, unspecified (ICD-10) ?G89.29 - Other chronic pain (ICD-10) Asthma, allergic ?J45.909 - Unspecified asthma, uncomplicated (ICD-10) Surgical History (Updated 01/10/23 @ 08:16 by Lilo Severino PA-C) Hx of tubal ligation ?Z98.51 - Tubal ligation status (ICD-10) History of section ?Z98.891 - History of uterine scar from previous surgery (ICD-10) History of laparoscopic cholecystectomy ?Z90.49 - Acquired absence of other specified parts of digestive tract (ICD-10) Family History (Updated 01/10/23 @ 08:25 by Lilo Severino PA-C) Mother Breast cancer Fibromyalgia BRCA gene mutation positive in female Father ALS (amyotrophic lateral sclerosis) Myocardial infarction Daughter Lung cancer Son Single kidney Other Family hx of prostate cancer Parkinson disease Social History (Updated 01/10/23 @ 08:25 by Lilo Severino PA-C) Narrative: 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 No alcohol No recreational drugs Never- smoker What is your current living situation?: I presently have a place to live Problems where you live: no known problems Problems where you live details: none In the past 12 months, utilities in danger of being shut off: no In past 12 months, lack of transportation kept you from medical appts, meetings, work, or getting things needed for daily living: no In the past 12 mos, have been you worried that your food would run out before you had money to buy more?: never true In the past 12 mos, the food you bought just didn't last and you didn't have money to buy more?: never true Highest level of school completed/degree received: Master's degree Smoking Status: Never smoker Do you use any of these nicotine containing products: None Second hand tobacco smoke exposure: No How often do you have a drink containing alcohol: monthly or less How often do you have six or more drinks on one occasion: Never AUDIT-C Alcohol total score: 1 Non-prescribed substance use: denies use Caffeine: No How often does anyone, including family, friends and others, physically hurt you: never How often does anyone, including family, friends and others, insult or talk down to you: never How often does anyone, including family, friends and others, threaten you with harm: never How often does anyone, including family, friends and others, scream or curse at you: never service: No Exam Narrative: Exam Narrative: Const: Well-nourished, Well-developed, in mild distress Eyes: PERRL, no conjunctival injection, and symmetrical lids HENT: Atraumatic external nose and ears. Moist mucous membranes. Remove CVS: RRR, No murmurs or gallops. Peripheral pulses 2+ and equal in all extremities RESP: Unlabored respiratory effort. Clear to auscultation bilaterally. Remove MSK:Extremities w/o deformity, Normal Active ROM, mild tenderness to the medial left calf. Varicocele veins seen to the left calf. No swelling noted Skin: Warm, Dry. No rashes or lesions. Neuro: Normal Muscle tone, No focal neurological deficits. Psych: Awake, Alert, & Oriented x3. Appropriate mood and affect. Const: Vital Signs, click to edit/add: Vital Signs - 24 hr 12/25/23 14:11 Temperature 97.5 F L Pulse Rate [Right Pulse Oximeter] 78 Respiratory Rate 18 Blood Pressure [Ri ght Upper Arm] 125/78 Pulse Oximetry 100 Oxygen Delivery Me thod Room Air Course Vital Signs Vital signs: Initial Vital Signs Temperature 97.5 F L 12/25/23 14:11 Temperature Source Temporal Artery Scan 12/25/23 14:11 Pulse Rate 78 12/25/23 14:11 Pulse Rhythm Regular 12/25/23 14:11 Pulse Strength 3+ Normal 12/25/23 14:11 Respiratory Rate 18 12/25/23 14:11 Blood Pressure 125/78 12/25/23 14:11 Blood Pressure Mean 93 12/25/23 14:11 Blood Pressure Position Sitting 12/25/23 14:11 Pulse Oximetry 100 12/25/23 14:11 Oxygen Delivery Method Room Air 12/25/23 14:11 Vital Signs Temperature 97.5 F L 12/25/23 14:11 Pulse Rate 78 12/25/23 14:11 Respiratory Rate 18 12/25/23 14:11 Blood Pressure 125/78 12/25/23 14:11 Pulse Oximetry 100 12/25/23 14:11 Oxygen Delivery Method Room Air 12/25/23 14:11 Temperature 97.5 F L 12/25/23 14:11 Pulse Rate 78 12/25/23 14:11 Respiratory Rate 18 12/25/23 14:11 Blood Pressure 125/78 12/25/23 14:11 Pulse Oximetry 100 12/25/23 14:11 Oxygen Delivery Method Room Air 12/25/23 14:11 Medical Decision Making MDM Narrative Medical decision making narrative: Patient is a 38-year-old female presenting to emergency department for concern of blood clot. Ultrasound will be ordered. Showing no signs of a PE at this time. Is feeling well. With ultrasound was done showing no acute abnormalities. Patient is otherwise doing well at this time will be discharged. Unsure what exactly is causing this discomfort in the leg but she can follow-up outpatient for it. Imaging Data Venous US: Attestation: I have reviewed the pertinent imaging results. Radiologist's impression: No deep vein thrombosis in the left lower extremity. Dictated by Rosina Jacobs MD @ 12/25/2023 3:47:00 PM Discharge Plan Discharge Clinical Impression: Left leg pain Patient Disposition: Home, Self-Care Condition: Stable Instructions: Leg Pain (ED) Additional Instructions: Follow-up with your primary care provider for your leg pain. There is no signs of blood clot at this time. Return to emergency department for new or worsening symptoms. Prescriptions: No Action Vitron-C 65 mg iron- 125 mg tablet,delayed release (DR/EC) 1 tab PO BID Qty: 60 1RF prednisone 20 mg tablet 20 mg PO BID Qty: 10 0RF diazepam [Valium] 5 mg tablet 2.5 - 5 mg PO BID PRN (Reason: muscle spasm) Qty: 30 1RF cyclobenzaprine 5 mg tablet 5 mg PO TID PRN (Reason: muscle spasm) Qty: 30 3RF Nurtec ODT 75 mg tablet,disintegrating 75 mg PO DAILY PRN venlafaxine 225 mg tablet extended release 24hr 225 mg PO HS topiramate 25 mg tablet 50 - 100 mg PO BID Patient Comments: TAKE 2 (50 MG) TABLETS BY MOUTH IN THE MORNING, AND TAKE 4 TABLETS (100 MG) AT BEDTIME. gabapentin 300 mg capsule 1,500 mg PO HS Patient Comments: propranolol 20 mg tablet 20 mg PO BID albuterol sulfate 90 mcg/actuation HFA aerosol inhaler 2 puff inhalation Q4H PRN (Reason: shortness of breath or wheezing) Qty: 8.5 0RF levothyroxine [Synthroid] 75 mcg tablet 75 mcg PO QDAY Qty: 90 3RF omeprazole 40 mg capsule,delayed release(DR/EC) 40 mg PO QDAY Qty: 90 1RF Eliquis 5 mg tablet 5 mg PO BID Qty: 180 1RF Follow Up/Referrals: Todd Landry MD [Primary Care Provider] - Stand Alone Forms: [employer] Info Instructions
== END 2023-12-25 16:03 | disposition home or self-care (01) ==
PROVIDERS: Emergency Provider Student in an Organized Health Care Education/Training Program; PCP Family Medicine
DX: M79.605 Pain in left leg (principal)
CPT/HCPCS: 93971; 99282; 99283; 99284

== ENCOUNTER 2023-12-26 16:18 | Outpatient (CLI) | payer BC, SELFPAY | END 2023-12-26 16:19 | disposition home or self-care (01) | LOC: NFLDREF 12-29 13:06 | PROVIDERS: PCP Family Medicine; Referring Provider Family Medicine; Visit Provider Internal Medicine Hematology & Oncology | DX: D64.9 Anemia, unspecified (principal); D50.9 Iron deficiency anemia, unspecified | CPT/HCPCS: 82607; 82728; 83540; 83550 ==

== ENCOUNTER 2024-03-21 11:00 | Outpatient (RCR) | payer BC, SELFPAY ==
--- NOTE | 2023-12-08 09:05 | URNOTE ---
Prior auth is not required for Infed ([id number]) per [employer] [place]. Conf #[id number]
--- NOTE | 2023-12-08 11:53 | PC.NURSE ---
Called pt to schedule her iron infusion. Scheduled for 12/16/2023. Pt states that would like to have labs drawn that day too. Dates adjusted on lab orders. 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
[2023-12-16] MEDS: IRON DEXTRAN COMPLEX 25 MG in 0.9 % SODIUM CHLORIDE 100 ml 100 ML 402 MG IVPB (08:29)
[2023-12-16 08:32] LABS: D Dimer Quantitative* 1.06 ug/ml (0.00-0.50)
[2023-12-16] MEDS: IRON DEXTRAN COMPLEX 975 MG in 0.9 % SODIUM CHLORIDE 250 ml 250 ML 269.5 MG IVPB (09:37)
[2023-12-16 11:30] VITALS: BP 134/91; PULSE 60; RESP 16; TEMP 36.4; O2SAT 100
--- NOTE | 2023-12-26 13:27 | ONC.NURNOTE ---
Pt called wondering if Dr. Gr would order the anti-cardiolipin panel for her since her last d-dimer was elevated and she is having labs done in [place] today. Pt states she has been off eliquis for [address] Gr and per Dr. Gr this is not needed at this time. Pt updated and will talk to Dr. Gr at her next appt on 01/03/24.
[2024-01-03 15:39] LABS: Basophils Absolute Auto 0.02 K/uL (0.00-0.30); Basophils Percent Auto 0.3 % (0.0-3.0); Eosinophils Absolute Auto 0.18 K/uL (0.00-0.50); Eosinophils Percent Auto 2.7 % (0.0-7.0); Hemoglobin* 10.3 gm/dL (12.0-16.0); Immature Granulocytes Abs Auto 0.01 K/uL (0.00-0.30); Immature Granulocytes Pct Auto 0.1 %; Lymphocytes Absolute Auto 2.46 K/uL (0.90-2.90); Lymphocytes Percent Auto 36.5 % (20-44); Mean Corpuscular HGB Conc 29 gm/dL (32-36); Mean Corpuscular Hemoglobin 24 pg (26-34); Mean Corpuscular Volume 81 fL (80-100); Monocytes Percent Auto 6.7 % (0.0-11.0); Neutrophils Absolute Auto 3.62 K/uL (1.7-7.0); Neutrophils Percent Auto 53.7 % (42.0-72.0); Platelet Count* 218 K/uL (140-440); Red Blood Count 4.35 m/uL (4.00-5.20); White Blood Count* 6.74 K/uL (4.50-11.00)
[2024-01-03 15:57] LABS: Slide Review Reflex No
--- OUTSIDE RECORDS SUMMARY | 2024-03-09 07:11 | XMS_ITS | Continuity of Care Document ---
Author Name NwHIN User [email or web address] llowed Address Unknown Organization Unknown Address Unknown Procedures FILTER APPLIED:Only known Procedures with Onset Date within the last 5 years Procedure Date Procedure Provider Additiona l Information Status CT HEAD/BRAIN W/O DYE (14847) Completed OFFICE O/P EST MOD 30 MIN (61072) Completed OFFICE O/P EST SF 10 MIN (95412) Completed IRON BINDING TEST (35285) Completed ASSAY OF IRON (20340) Co mpleted ASSAY OF FERRITIN (78830) Completed VITAMIN B-12 (24842) Com pleted F2 GENE (88344) Complete d ROUTINE VENIPUNCTURE (13697) Completed COMPLETE CBC W/AUTO DIFF WBC (78713) Completed BETA-2 GLYCOPROTEIN ANTIBODY (97328) Completed CARDIOLIPIN ANTIBODY EA IG (90680) Completed ASSAY OF FOLIC ACID SERUM (64968) Completed OFFICE O/P NEW SF 15 MIN (95289) Completed OFFICE O/P NEW MOD 45 MIN (16370) Completed EXTREMITY STUDY (79063) Completed ASSAY OF FERRITIN (14897) Completed F5 GENE (07756) Complete d CARDIOLIPIN ANTIBODY EA IG (27306) Completed THROMBOPLASTIN TIME PARTIAL (58736) Completed SUAD VIPER VENOM DILUTED (81065) Completed PROTHROMBIN TIME (68842) Completed CLOT INHIBIT PROT S FREE (89214) Completed CLOT INHIBIT PROT C ANTIGEN (70533) Completed ANTITHROMBIN III ACTIVITY (63363) Completed ASSAY OF HOMOCYSTEINE (36392) Completed ASSAY THYROID STIM HORMONE (46324) Completed ASSAY OF IRON (89446) Co mpleted COMPREHEN METABOLIC PANEL (04922) Completed ASSAY THYROID STIM HORMONE (39525) Completed VITAMIN B-12 (05548) Com pleted ASSAY OF FOLIC ACID SERUM (74859) Completed HPYLORI STOOL AG IA (08194) Completed COMPREHEN METABOLIC PANEL (90880) Completed ROUTINE VENIPUNCTURE (11894) Completed EXTREMITY STUDY (15333) Completed PROTHROMBIN TIME (23371) Completed AUTOMATED RETICULOCYTE COUNT (79939) Completed COMPLETE CBC W/AUTO DIFF WBC (41819) Completed ASSAY OF NATRIURETIC PEPTIDE (12681) Completed CHORIONIC GONADOTROPIN ASSAY (44466) Completed RBC ANTIBODY SCREEN (37213) Completed HEMOGLOBIN (98734) Compl eted EMERGENCY DEPT VISIT HI MDM (19346) Completed EMERGENCY DEPT VISIT MOD MDM (64380) Completed HYDRATION IV INFUSION INIT (45707) Completed COMPATIBILITY TEST ANTIGLOB (80882) Completed BLOOD TYPING SEROLOGIC RH(D) (54777) Completed TRANSFUSION BLD/BLD COMPNT (88192) Completed CT ANGIOGRAPHY CHEST (32100) Completed METABOLIC PANEL TOTAL CA (24177) Completed BLOOD TYPING SEROLOGIC ABO (98544) Completed IRON BINDING TEST (18308) Completed ASSAY OF IRON (25770) Co mpleted Encounters FILTER APPLIED:Only known Encounters with Admission Date within the last 5 years Encounter Location Admission Discharge Billing Code [employer] Repairer Attender Outpatient Todd Landry Unknown [id number] [facility] Outpatient Todd Landry Outpatient Todd Landry Outpatient Lilo Lyronal Outpatient Todd Landry Outpatient Todd Landry Outpatient Todd Lanrdy Outpatient Todd Landry Outpatient Estee Gr Outpatient Elizabeth Steele Outpatient [facility] Out[facility] Out[facility] Outpatient [facility] Outpatient [facility] Recurring Patient [facility] Outpatient [facility] Outpatient [facility] Recurring Patient [facility] Recurring Patient [facility] Outpatient [facility] Outpatient [facility]
--- OUTSIDE RECORDS SUMMARY | 2024-03-09 07:12 | XMS_ITS | Encounter Summary ---
Author Organization [facility] Address [address] [place] [address] Care Team Providers Care Bonding Machine Operator Name Role Phone Christiane Love APRN TELETYPE OPERATOR Primary Care Provider + Yara Fregoso OD Unavailable Christiane Love APRN TELETYPE OPERATOR Unavailable [phone] Yvette Graves MD Unavailable [phone] Reason for Visit * Reason Onset Date Comments Refill Request 01/18/2022 Encounter Details Date Type Department Care Team (Late st Contact Info) Description 01/18/2022 [facility] [address] [address] Rema Ramos APRN TELETYPE OPERATOR Refill Request Social History Tobacco Use Types Packs/Day Years Used Date Smoking Tobacco: Never Smokeless Tobacco: Never Alcohol Use Standard Drinks/Week Comments No 0 (1 standard drink = 0.6 oz pur e alcohol) PHQ-2 Answer Date Recorded PHQ-2 Score 2 12/08/2021 Comments No Sex and Gender Information Value Date Recorded Sex Assigned at Not on file Legal Sex Female 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 No / Unsure 01/12/2022 8:13 AM LAUNDRY EQUIPMENT OPERATOR documented as of this encounter Plan of Treatment Not on file documented as of this encounter Visit Diagnoses Diagnosis Post concussion syndrome Postconcussion syndrome Attention and concentration deficit Attention or concentration deficit documented in this encounter Additional Health Concerns Assessment Noted Time PHQ-9 Depression Total Score: 15 021 7:30 AM LAUNDRY EQUIPMENT OPERATOR documented as of this encounter Care Teams Bonding Machine Operator Relationship Specialty Start Date End Date Christiane Love APRN TELETYPE OPERATOR PCP - General Nurse Practitioner - Family 07/12/16 Yara Fregoso OD [facility] [place] [address] Assigned Surgical Provider 03/15/21 09/10/22 Christiane Love APRN TELETYPE OPERATOR [id number] [place] [address] Assigned PCP 05/31/21 Yvette Graves MD [address] [place] [address] Physician Physical Medicine and Rehabilitation 07/22/22 documented as of this encounter
--- OUTSIDE RECORDS SUMMARY | 2024-03-09 07:12 | XMS_ITS | Encounter Summary ---
Author Organization [facility] Address [address] [place] [address] Care Team Providers Care Nutrition Associate Name Role Phone Christiane Love APRN COORDINATOR OF ONLINE PROGRAMS Primary Care Provider + Yara Fregoso OD Unavailable Christiane Love APRN COORDINATOR OF ONLINE PROGRAMS Unavailable [phone] Yvette Graves MD Unavailable [phone] Encounter Details Date Type Department Care Team (Late st Contact Info) Description 01/22/2022 MyC Medical Advice [facility] [address] [place] [address] Isaura Cha, KELLY [address] [place] [id number] Social History Tobacco Use Types Packs/Day Years Used Date Smoking Tobacco: Never Smokeless Tobacco: Never Alcohol Use Standard Drinks/Week Comments No 0 (1 standard drink = 0.6 oz pur e alcohol) PHQ-2 Answer Date Recorded PHQ-2 Score 2 12/08/2021 Comments No Sex and Gender Information Value Date Recorded Sex Assigned at Not on file Legal Sex Female 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 No / Unsure 01/12/2022 8:13 AM RETAIL SALES SPECIALIST documented as of this encounter Plan of Treatment Not on file documented as of this encounter Visit Diagnoses Not on filedocumented in this encounter Additional Health Concerns Assessment Noted Time PHQ-9 Depression Total Score: 15 021 7:30 AM RETAIL SALES SPECIALIST documented as of this encounter Care Teams Nutrition Associate Relationship Specialty Start Date End Date Christiane Love APRN COORDINATOR OF ONLINE PROGRAMS PCP - General Nurse Practitioner - Family 07/12/16 Yara Fregoso OD [address] [facility] [place] [address] Assigned Surgical Provider 03/15/21 09/10/22 Christiane Love APRN COORDINATOR OF ONLINE PROGRAMS [address] [facility] [facility] [place] [address] Assigned PCP 05/31/21 Yvette Graves MD [address] [place] [address] Physician Physical Medicine and Rehabilitation 07/22/22 documented as of this encounter
--- OUTSIDE RECORDS SUMMARY | 2024-03-09 07:12 | XMS_ITS | Clinical Summary ---
Author Organization [facility] Address [address] [place] [address] Care Team Providers Care Tablet Machine Operator Name Role Phone Christiane Whitmore APRN SKIN CARE TECHNICIAN Primary Care Provider + Christiane Whitmore APRN SKIN CARE TECHNICIAN Unavailable [phone] Yvette Graves MD Unavailable [phone] Allergies Active Allergy Reactions Criticality Noted Date Comments Blood Transfusion Related (Informational Only) Other (See Comments) High 04/06/2017 Patient has a history of a clinically significant antibody against RBC antigens. A delay in compatible RBCs may occur. Citalopram Hives 07/27/2017 Levofloxacin Other (See Comments) 12/26/2019 Neomycin Swelling 11/29/2004 No Clinical Screening - See Comments 07/13/2016 Neopolymycin ear drops Medications Albuterol Sulfate (VENTOLIN HFA IN) Active gabapentin (NEURONTIN) 300 MG capsule 4 times daily 3 8 Active venlafaxine (EFFEXOR-ER) 225 MG 24 hr tablet Take by mouth daily 0 Active NURTEC 75 MG TBDP daily as needed 1 Active loratadine (CLARITIN) 10 MG tablet Take 10 mg by mouth daily as needed for allergies Active topiramate (TOPAMAX) 25 MG tablet TAKE 2 TABLETS BY MOUTH IN THE MORNING, AND TAKE 4 TABLETS AT BEDTIME. 2 Active naproxen (NAPROSYN) 500 MG tabletIndicatio ns:Chronic post-concussion headache Take 1 tablet (500 mg) by mouth 2 times daily (with meals) 60 tablet 3 3 Active cyclobenzaprine (FLEXERIL) 5 MG tabletIndicatio ns:Intractable migraine without aura and with status migrainosus,Nec k pain,Body aches TAKE 1 TABLET BY MOUTH THREE TIMES A DAY NEEDED FOR MUSCLE SPASMS 90 tablet 1 3 Active Active Problems Problem Noted Date Diagnosed Date Concussion with unknown loss of consciousness st atus 07/26/2023 Intractable migraine with aura without status mi grainosus 05/15/2019 Adjustment disorder with anxious mood 01/12/2018 Benign essential hypertension 08/02/2017 section wound seroma, 2017 S/P section 04/10/2017 Aftercare following surgery 10/17/2015 Andrea's thyroiditis 01/15/2015 Vitamin D deficiency 12/27/2013 Overview (07/28/2021): VITAMIN D TOTAL Date Value Range Status 12/26/2013 14.9* 30.0-80.0 ng/mL Final At risk for bone density loss 12/26/2013 Family history of BRCA1 gene positive 12/26/2013 Overview (12/28/2019): Overview: Mother and maternal grandmother, Adán is BRCA 1 negative--genetic counselor at [place] recommended mammogram every five years due to 75% accuracy of BRCA screening in 2006--last mammogram was in 2011 at [facility] (negative) High cholesterol 12/26/2013 Overview (12/28/2019): Overview: Had mildly elevated cholesterol and triglycerides at her employment health screening--recommended fish oil Urine, incontinence, stress female 12/26/2013 Pelvic floor weakness in female 12/26/2013 CARDIOVASCULAR SCREENING; LDL GOAL LESS THAN 130 05/03/2011 Headache syndromes 02/23/2010 Family history of malignant neoplasm of breast 1 Resolved Problems Problem Noted Date Diagnosed Date Resolved Date Neck pain 07/26/2023 02/14/2024 Left cervical radiculopathy 07/26/2023 02/14/2024 Encounter for triage in patient 04/06/2017 12/13/2017 04/06/2017 12/13/2017 Immunizations Name Administration Dates Next Due COVID-19 MONOVALENT 12+ (Pfizer) 02/14/2021,03/08 DTAP (<7y) 08/23/2006 Flu, Unspecified 12/06/2014,12/24/2013 HepB, Unspecified 11/09/1995,09/15/1994,07/01/18 95 Hepatitis B, Adult 11/09/1995,09/15/1994, 995 Influenza (IIV3) PF 01/17/2007 Influenza (intradermal) 12/02/2010 Influenza (prior to 2023) 12/01/2018,,01/02/2013,2008,01/04/2008 Influenza Vaccine >6 months,quad, PF ,12/21/2019,12/01/2018,2014 MMR 07/01/1994,11/20/1984 OPV, trivalent, live 03/25/1988,03/24/18 86,03/10/1984,1983,1983 TDAP (Adacel,Boostrix) 03/07/2006 TDAP Vaccine (Adacel) 04/06/2017 Td (Adult), Adsorbed 10/06/1997 Family History Medical History Relation Comments Autoimmune Disease Father Thyroid Disease Father Coronary Artery Disease Maternal Grandfather Other Cancer Maternal Grandmother Breast Cancer Mother BRCA1 positive, extensive maternal family history of breast and ovarian cancer Cancer Mother Thyroid Disease Mother Diabetes Paternal Grandfather Glaucoma No family hx of Macular Degeneration No family hx of Relation Status Comments Daughter Alive Father Maternal Grandfather Maternal Grandmother Mother Paternal Grandfather Social History Tobacco Use Types Packs/Day Years Used Date Smoking Tobacco: Never Smokeless Tobacco: Never Tobacco Cessation:Counseling Given: Yes Alcohol Use Standard Drinks/Week Comments No 0 (1 standard drink = 0.6 oz pur e alcohol) PHQ-2 Answer Date Recorded PHQ-2 Score 0 06/21/2022 Adolescent Education Answer Date Record ed Getting School Help Needed Not on file 11/29 Comments No Sex and Gender Information Value Date Recorded Sex Assigned at Not on file Legal Sex Female 4:16 AM RATING EXAMINER Gender Identity Not on file Sexual Orientation Not on file Last Filed Vital Signs Vital Sign Reading Time Taken Comments Blood Pressure 120/70 06/16/2021 10:19 AM CDT Pulse 110 06/16/2021 10:19 AM CDT Temperature 36.9 C (98.5 F) 06/16/2021 10:19 AM CDT Respiratory Rate 18 06/16/2021 10:19 AM CDT Oxygen Saturation 99% 06/16/2021 10:19 AM CDT Inhaled Oxygen Concentration - - Weight 86.2 kg (190 lb) 06/16/2021 10:19 AM CDT Height 170.8 cm (5' 7.25) 02/04/2021 10:[address] Body Mass Index 29.54 02/04/2021 10:55 AM RATING EXAMINER Plan of Treatment Health Maintenance Due Date Last Done Comments ADVANCE CARE PLANNING 1983 HEPATITIS C SCREENING 07/23/2001 MAMMO SCREENING 05/05/2013 05/06/2011 ANNUAL REVIEW OF HM ORDERS 12/25/2020 12/26/2019 BMP 12/25/2020 12/26/2019, 06/05, 07/20/2017, Additional history exists LIPID 12/25/2020 12/26/2019, 06/05, 07/27/2017 YEARLY PREVENTIVE VISIT 12/25/2020 12/26/2019 THOMAS ASSESSMENT 02/04/2022 02/04/2021, 11/06, 06/13/2018, Additional history exists GLUCOSE 12/25/2022 12/26/2019, 06/05, 07/20/2017, Additional history exists PHQ-2 (once per calendar year) 2023 06/21/2022, 03/23/2022, 12/08/2021, Additional history exists COVID-19 Vaccine ( season) 2023 12/17/2022, 11/21/2021, 02/14/2021, Additional history exists INFLUENZA VACCINE (#1) 2023 , 12/30/2021, 12/03/2020, Additional history exists HPV TEST 12/25/2024 12/26/2019 PAP 12/25/2024 12/26/2019, 1003/2016, 02/05/2016, Additional history exists DTAP/TDAP/TD IMMUNIZATION (5 - Td or Tdap) 04/06/2027 04/06/2017, 09/05/2012, 08/23/2006, Additional history exists RSV VACCINE (1 - 1-dose 75+ series) 07/23/2058 HEPATITIS B IMMUNIZATION Completed 996, 11/09/1995, 09/15/1994, Additional history exists HIV SCREENING Completed 11/11/2016 HPV IMMUNIZATION Aged Out No longer e ligible based on patient's age to complete this topic MENINGITIS IMMUNIZATION Aged Out No l onger eligible based on patient's age to complete this topic Pneumococcal Vaccine: Pediatrics (0 to 5 Years) and At-Risk Patients (6 to 49 Years) Aged Out No longer eligible based on patient's age to complete this topic RSV MONOCLONAL ANTIBODY Aged Out No l onger eligible based on patient's age to complete this topic Procedures Procedure Name Priority Date/Time Associated Diagnosis Comments PAP IMAGED THIN LAYER SCREEN Routine 12/26/2019 11:54 AM CDT Screening for malignant neoplasm of cervix LIPID REFLEX TO DIRECT LDL PANEL Routine 12/26/2019 11:45 AM CDT CARDIOVASCULAR SCREENING; LDL GOAL LESS THAN 130 HPV HIGH RISK TYPES DNA CERVICAL Routine 12/26/2019 11:45 AM CDT Screening for malignant neoplasm of cervix BASIC METABOLIC PANEL Routine 12/26/2019 11:45 AM CDT Benign essential hypertension HIV ANTIGEN ANTIBODY COMBO Routine 11/11/2016 MA SCREENING DIGITAL BILATERAL Routine 05/06/2011 1:50 PM RATING EXAMINER from Last 3 Months or Most Recently Relevant to Health Maintenance Results * Pap imaged thin layer screen with HPV - recommended age 30 - 65 years (select HPV order below) (12/26/2019 11:54 AM CDT) PAP NIL COPATH Copath Report Patient Name: ADÁN LEE MR#: [id number] Specimen #: [id number] Collected: 12/26/2019 Received: 12/27/2019 Reported: 12/31/2019 14:25 Ordering Phy(s): CHRISTIANE WHITMORE For improved result formatting, select 'View Enhanced Report Format' under Linked Documents section. SPECIMEN/STAIN PROCESS: Pap imaged thin layer prep screening (Surepath, FocalPoint with guided screening) Pap-Cyto x 1, HPV ordered x 1 SOURCE: Cervical, endocervical Pap imaged thin layer prep screening (Surepath, FocalPoint with guided screening) SPECIMEN ADEQUACY: Satisfactory for evaluation. -Transformation zone component present. CYTOLOGIC INTERPRETATION: Negative for intraepithelial lesion or malignancy Electronically signed out by: ERICKSON Pavon (ASCP) CLINICAL HISTORY: Papanicolaou Test Limitations: Cervical cytology is a screening test with limited sensitivity; regular screening is critical for cancer prevention; Pap tests are primarily effective for the diagnosis/preventi on of squamous cell carcinoma, not adenocarcinomas or other cancers. COLLECTION SITE: Client: [facility] Location: [facility] (R) [facility] with the professional component performed at the [facility], [address] [place] [id number] ([phone]) COPATH Cytologic material (specimen) 12/26/2019 11:54 AM CDT 12/27/2019 11:17 AM CDT Christiane Whitmore BEND UP SKIN CARE TECHNICIAN LAB - [facility] ECIMEN Final Result COPATH * HPV High Risk Types DNA Cervical (12/26/2019 11:45 AM CDT) HPV Source SurePath 12/26/2019 11:54 AM CDT [facility] HPV 16 DNA Negative NEG^Nega tive 01/01/2020 4:07 PM CDT [facility] HPV 18 DNA Negative NEG^Nega tive 01/01/2020 4:07 PM CDT [facility] Other HR HPV Negative NEG^Nega tive 01/01/2020 4:07 PM CDT [facility] Final Diagnosis This patient's sample is negative for HPV DNA. 01/01/2020 4:07 PM CDT [facility] Comment: This test was developed and its performance characteristics determined by the [facility], [facility]. It has not been cleared or approved by the FDA. The laboratory is regulated under CLIA as qualified to perform high-complexity testing. This test is used for clinical purposes. It should not be regarded as investigational or for research. (Note) METHODOLOGY: The [employer] sho 4800 system uses automated extraction, simultaneous amplification of HPV (L1 region) and beta-globin, followed by real time detection of fluorescent labeled HPV and beta globin using specific oligonucleotide probes . The test specifically identifies types HPV 16 DNA and HPV 18 DNA while concurrently detecting the rest of the high risk types (31, 33, 35, 39, 45, 51, 52, 56, 58, 59, 66 or 68). COMMENTS: This test is not intended for use as a screening device for women under age 30 with normal cervical cytology. Results should be correlated with cytologic and histologic findings. Close clinical followup is recommended. Specimen Description Cervical Cells 12/26/2019 11:54 AM CDT [facility] Cervical Cells 12/26/2019 11 :45 AM CDT 12/26/2019 12:16 PM CDT us Christiane Whitmore APRN SKIN CARE TECHNICIAN LAB - BLOOD ORDERABLES F inal Result [facility] [address] [place], [place] [id number] [address] [address] * (ABNORMAL) Lipid panel reflex to direct LDL Fasting (12/26/2019 11:45 AM CDT) Cholesterol 221(H) <200 mg/dL 12/27/2019 3:[address] [facility] Comment:Desirable: <200 mg/d l Triglycerides 103 <150 mg/dL 12/27/2019 3:[address] [facility] Comment:Fasting specimen HDL Cholesterol 58 >49 mg/dL 0 3:[address] [facility] LDL Cholesterol Calculated 142(H) <100 mg/dL 12/27/2019 3:[address] [facility] Comment: Above desirable: 100-129 mg/dl Borderline High: 130-159 mg/dL High: 160-189 mg/dL Very high: >189 mg/dl Non HDL Cholesterol 163(H) <130 mg/dL 12/27/2019 3:[address] [facility] Comment: Above Desirable: 130-159 mg/dl Borderline high: 160-189 mg/dl High: 190-219 mg/dl Very high: >219 mg/dl Blood specimen (specimen) 12/26/2019 11:45 AM CDT 12/26/2019 12:16 PM CDT Christiane Whitmore APRN SKIN CARE TECHNICIAN LAB - BLOOD ORDERABLES F inal Result [facility] [address] [place] [address] * (ABNORMAL) BASIC METABOLIC PANEL (12/26/2019 11:45 AM CDT) Sodium 136 133 - 144 mmol/L 12/27/2019 3:[address] [facility] Potassium 4.0 3.4 - 5.3 mmol/L 12/27/2019 3:[address] [facility] Chloride 109 94 - 109 mmol/L 12/27/2019 3:[address] [facility] Carbon Dioxide 19(L) 20 - 32 mmol/L 12/27/2019 3:[address] [facility] Anion Gap 8 3 - 14 mmol/L 12/27/2019 3:[address] [facility] Glucose 99 70 - 99 mg/dL 12/27/2019 3:[address] [facility] Comment:Fasting specimen Urea Nitrogen 16 7 - 30 mg/dL 12/27/2019 3:[address] [facility] Creatinine 0.80 0.52 - 1.04 mg/dL 12/27/2019 3:[address] [facility] GFR Estimate >90 >60 mL/min/{1 .73_m2} 12/27/2019 3:[address] [facility] Comment: Non GFR Calc Starting 02/21/2018, serum creatinine based estimated GFR (eGFR) will be calculated using the Chronic Kidney Disease Epidemiology Collaboration (CKD-EPI) equation. GFR Estimate If Black >90 >60 mL/min/{1 .73_m2} 12/27/2019 3:[address] [facility] Comment: GFR Calc Starting 02/21/2018, serum creatinine based estimated GFR (eGFR) will be calculated using the Chronic Kidney Disease Epidemiology Collaboration (CKD-EPI) equation. Calcium 9.1 8.5 - 10.1 mg/dL 12/27/2019 3:[address] [facility] Blood specimen (specimen) 12/26/2019 11:45 AM CDT 12/26/2019 12:16 PM CDT us Christiane Whitmore APRN SKIN CARE TECHNICIAN LAB - BLOOD ORDERABLES F inal Result [facility] [address] [place] [address] * HIV Antigen Antibody Combo (11/11/2016) HIV Antigen Antibody Combo neg Blood specimen (specimen) us Patient Reported LAB - BLOOD ORDERABLES Final Re sult * Mammo Screening digital (bilat) (05/06/2011 1:50 PM RATING EXAMINER) Anatomical Region Laterality Modality Breast Bilateral Other 05/06/2011 1:50 PM RATING EXAMINER Impressions 05/26/2011 2:05 PM CDT SCREENING MAMMOGRAM, BILATERAL, DIGITAL w/CAD - May 06, 2011 1:50:00 PM BREAST SYMPTOMS: No current breast complaints. COMPARISON: None available. PARENCHYMAL PATTERN: Heterogeneously dense, limiting mammographic sensitivity. COMMENTS: No findings of suspicion for malignancy. IMPRESSION: BI-RADS 1, NEGATIVE. RECOMMENDATION: Recommend annual screening mammography. Exam results letter mailed to patient. Keya Perez PA-C IM MAMMOGRAPHY ORDE MATTHEW Edited from Last 3 Months or Most Recently Relevant to Health Maintenance Insurance [facility] [employer] [facility] [employer] Advance Directives For more information, please contact: [phone] * Full Code (Latest Code Status on File) Date Activated Date Inactivated Comments 04/25/2017 1:00 PM 04/26/2017 6:16 PM * No Code Status Date Activated Date Inactivated Comments 01/07/2004 2:37 PM 01/07/2004 3:37 PM OK TO LM * No Code Status Date Activated Date Inactivated Comments 12/27/2003 1:50 PM 12/27/2003 1:50 PM Care Teams Tablet Machine Operator Relationship Specialty Start Date End Date Christiane Whitmore APRN SKIN CARE TECHNICIAN PCP - General Nurse Practitioner - Family 07/12/16 Christiane Whitmore APRN SKIN CARE TECHNICIAN [address] [place] [address] Assigned PCP 05/31/21 Yvette Graves MD [address] [place] [address] Physician Physical Medicine and Rehabilitation 07/22/22
--- OUTSIDE RECORDS SUMMARY | 2024-03-09 07:12 | XMS_ITS | Encounter Summary ---
Author Organization [facility] Address [address] [place] [address]. [place] [address] Care Team Providers Care Service Desk Director Name Role Phone Christiane Love APRN, CNP Primary Care Provider + Christiane Love APRN, CNP Unavailable [phone] Yvette Graves MD Unavailable [phone] Reason for Visit * Rehab Therapy Physical Therapy (Routine) - Closed Specialty Diagnoses / Procedures Referred By Zeenat bautista Referred To Contact Physical Therapy Diagnoses WC/ Concussion with loss of consciousness status unknown, initial encounter [S06.0XA... Procedures PT CONCUSSION EVAL [address] [address] Phone: tel: Referral ID Status Reason Start Date Expiration Date Visits Re quested Visits Authorized [id number] Closed 07/25/2023 03/06/2024 24 22 Encounter Details Date Type Department Care Team (Latest Contact Info) Description 11/14/2023 3:10 PM CD[facility] [address] [facility] [place] [address] Marly Boyer, PT [address] [facility] [place] [address] Neck pain (Primary Dx); Left cervical radiculopathy Social History Tobacco Use Types Packs/Day Years [...] on file Legal Sex Female 4:16 AM MANAGER POOL Gender Identity Not on file Sexual Orientation Not on file documented as of this encounter Progress Notes * Marly Boyer, PT - 02/14/2024 10:24 AM CST DISCHARGE Reason for Discharge: Patient chooses to discontinue therapy. See progress note of 11/14/2023 for final status. Pt cancelled remaining visits and continuing independently with HEP Equipment Issued: none Discharge Plan: Patient to continue home program. Referring Provider: Rema Ramos GER POOL * Marly Boyer, PT - 11/14/2023 4:20 PM CDT 11/14/23 0500 Appointment Info Signing clinician's name / credentials Marly Boyer PT Total/Authorized Visits WC- 24 Visits Used 12 Medical Diagnosis Concussion with loss of consciousness status unknown PT Tx Diagnosis dizziness; neck pain; impaired functional mobility; left cervical radiculopathy Other pertinent information Hx of concussion in 01/25. 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 Progress Note/Certification Start of Care Date 07/25/23 Onset of illness/injury or Date of Surgery 06/26/23 Therapy Frequency every 3 weeks Predicted Duration 9 weeks Progress Note Due Date 09/22/23 Progress Note Completed Date 09/13/23 GOALS PT Goals 3;2;4;5 PT Goal 1 Goal Identifier Neck Pain Goal Description Pt will report neck pain of a 0-2/10, with all typical daily activities. Rationale to maximize safety and independence with performance of ADLs and functional tasks;to maximize safety and independence within the home;to maximize safety and independence within the community;to maximize safety and independence with transportation;to maximize safety and independence with self cares Goal Progress minimal to no pain now, goal is nearing, still appropriate, time frame adjusted Target Date 01/16/24 PT Goal 2 Goal Identifier Driving and viewing traffic Goal Description Able to look over either shoulder for viewing traffic, checking blind spots, and for backing up with 1/10 pain Rationale to maximize safety and independence with performance of ADLs and functional tasks;to maximize safety and independence within the home;to maximize safety and independence within the community;to maximize safety and independence with transportation;to maximize safety and independence with self cares Goal Progress good, can turn head now to view traffic Target Date 11/08/23 Date Met 11/14/23 PT Goal 3 Goal Identifier Reaching Goal Description Reach; behind back; to counter height; to shoulder level; overhead; out to the side; across body; Unrestricted reaching. Rationale to maximize safety and independence with performance of ADLs and functional tasks;to maximize safety and independence within the home;to maximize safety and independence within the community;to maximize safety and independence with transportation;to maximize safety and independence with self cares Goal Progress ROM is WNL left shoulder Target Date 11/08/23 Date Met 11/14/23 PT Goal 4 Goal Identifier Sleeping Goal Description Less than 1 hour without sleep per night ; lay on right or left side Rationale to maximize safety and independence with performance of ADLs and functional tasks;to maximize safety and independence within the home;to maximize safety and independence within the community;to maximize safety and independence with transportation;to maximize safety and independence with self cares Goal Progress improved overall, sleeping is good Target Date 09/22/23 Date Met 09/13/23 PT Goal 5 Goal Identifier Lifting/carrying Goal Description Lift or carry an item to counter height weighing; Lift an item to shoulder level; Lift an item overhead; Lift an item to lower cupboard height; item weighing 10 lb; Rationale to maximize safety and independence with performance of ADLs and functional tasks;to maximize safety and independence within the home;to maximize safety and independence within the community;to maximize safety and independence with transportation;to maximize safety and independence with self cares Goal Progress progressing, still some weakness, goal is appropriate and ongoing, timeframe adjusted Target Date 01/09/24 Subjective Report Subjective Report States overall is better, continued to improve. Still some weakness with activities such as gripping to open jar difficulty stabilizing with this. Still some difficulty with liftingdaughter; difficulty with lifting overhead or at shoulder height, better at lower heights. 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 Left shoulder strength is better, scapular stabilizers still feel weak. Objective Measures Objective Measures Objective Measure 1;Objective Measure 2;Objective Measure 3;Objective Measure 4 Objective Measure 1 Objective Measure Cervical and left shoulder AROM Details Cervical AROM flexion WNL with end range stretch. Bilateral sidebending WNL with end range strech; bilateral rotation WNL with end range stretch. Extension WNL. Objective Measure 2 Objective Measure Strength left UE Details Left shoulder flexion and abduction 5/5 with no pain; IR and ER 5/5 with no pain. Scapular stabilization 5-/5 with improved form and decreased UT activity and improved mid and lower trap activation, but still some weakness. Empty can position today 5-/5 with no pain. Objective Measure 3 Objective Measure Left shoulder AROM Details left shoulder flexion and abduction WNL . IR behind back to T10 with end range tightness. Shoulder extension WNL. Objective Measure 4 Objective Measure Palpation Details tenderness and tightness noted left upper, mid and lower trap mm Treatment Interventions (PT) Interventions Neuromuscular Re-education;Therapeutic Procedure/Exercise;Manual Therapy Therapeutic Procedure/Exercise Therapeutic Procedures: strength, endurance, ROM, flexibility minutes (07252) 10 Therapeutic Procedures Ther Proc 2 PTRx Ther Proc 1 Cervical ROM Side Bending PTRx Ther Proc 1 - Details brief review; continue with HEP PTRx Ther Proc 2 Levator Scapulae Stretch PTRx Ther Proc 2 - Details brief review; continue with HEP PTRx Ther Proc 3 Cervical Retraction PTRx Ther Proc 3 - Details brief review; continue with HEP PTRx Ther Proc 4 Wand Shoulder Internal Rotation PTRx Ther Proc 4 - Details brief review; continue with HEP PTRx Ther Proc 5 All 4s Arm Lift PTRx Ther Proc 5 - Details difficulty stabilizing on left with increased UT activity can gradually work towards this as wall push up improves Skilled Intervention Verbal cues and demonstration used for proper performance of exercise including cues for proper form to decrease substitutions and isolate muscle being targeted; cues for slow and controlled motion both concentrically and eccentrically; cueing for good starting position and posture, and to ensure safe performance of motion Patient Response/Progress improved form and ROM with no pain; strength improving Neuromuscular Re-education Neuromuscular re-ed of mvmt, balance, coord, kinesthetic sense, posture, proprioception minutes ([id number]) 20 PTRx Neuro Re-ed 2 Scapular Retraction/Depression PTRx Neuro Re-ed 2 - Details brief review; continue with HEP PTRx Neuro Re-ed 3 Shoulder Horizontal Abduction Standing PTRx Neuro Re-ed 3 - Details can do 2 lb x 10 without difficulty now. PTRx Neuro Re-ed 4 Wall Push Up Plus PTRx Neuro Re-ed 4 - Details x 5 x 2 with difficulty stabilizing at end range/closer to wall can stay in smaller range to start and then work on going through more range as improves PTRx Neuro Re-ed 5 Scapular Stabilization/Proprioception With A Ball PTRx Neuro Re-ed 5 - Details x 30 sec with up/down and circles CW CCW x 2 can add to HEP Skilled Intervention Verbal cues and demonstration used for proper performance of exercise including cues for proper form to decrease substitutions and isolate muscle being targeted; cues for slow and controlled motion both concentrically and eccentrically; cueing for good starting position and posture, and to ensure safe performance of motion Patient Response/Progress weakness with stabilizing on left PTRx Neuro Re-ed 6 Push-Up Plus At Counter PTRx Neuro Re-ed 6 - Details can progress to this as wall push up gets easier PTRx Neuro Re-ed 7 Ball Stabilization Prone Alternating Arm Extension PTRx Neuro Re-ed 7 - Details can work to this as able difficulty stabilizing on left with this now does have ball at home can utilize Education Learner/Method Patient;Listening;Reading;Demonstration Education Comments uses PTRX online and handouts Plan Home program see PTRX Updates to plan of care issued updated handouts; PN completed and goals ongoing. Decreasing frequency as strength improving,good compliance with HEP Plan for next session continue to progress with left shoulder and scapular strengthening; upper trunk stabilization exercises; manual therapy as able. Total Session Time Timed Code Treatment Minutes 30 Total Treatment Time (sum of timed and untimed services) 30 PLAN Continue therapy per current plan of care. Beginning/End Dates of Progress Note Reporting Period: 09/13/23 to 11/14/2023 Referring Provider: Rema Ramos documented in this encounter Plan of Treatment Not on file documented as of this encounter Visit Diagnoses Diagnosis Neck pain- Primary Cervicalgia Left cervical radiculopathy Brachial neuritis or radiculitis nos documented in this encounter Additional Health Concerns Assessment Noted Time PHQ-9 Depression Total Score: 15 021 7:30 AM MANAGER POOL documented as of this encounter Care Teams Service Desk Director Relationship Specialty Start Date End Date Christiane Love APRN CNP PCP - General Nurse Practitioner - Family 07/12/16 Christiane Love APRN KENNEL WORKER [address] [place] [address] Assigned PCP 05/31/21 Yvette Graves MD [address] [place] [address] Physician Physical Medicine and Rehabilitation 07/22/22 documented as of this encounter
--- OUTSIDE RECORDS SUMMARY | 2024-03-09 07:12 | XMS_ITS | Clinical Summary ---
Author Organization [facility] Address [place], [place] [address] Care Team Providers Care Truck Driver Instructor Name Role Phone Thais Corcoran Primary Care Provider [phone] Allergies Active Allergy Reactions Criticality Noted Date Comments Neomycin Edema 11/29/2004 Medications levothyroxine (SYNTHROID) 125 mcg tabletIndication s:Andrea's thyroiditis TAKE ONE TABLET BY MOUTH BEFORE BREAKFAST 90 tablet 2 6 Active fluticasone (50 mcg per actuation) nasal solution (FLONASE)Indicat ions:Seasonal allergies Inhale 1 [place] into both nostrils once daily. 1 Bottle 5 6 Active albuterol HFA (PRO-AIR,VENTOLI N,PROVENTIL) 90 mcg/actuation inhalerIndicatio ns:Chronic cough Inhale 2 Puffs by mouth every 4 hours if needed. 1 Inhaler 2 6 Active DMEIndications:C arpometacarpal boss, left,Mass of left wrist U2 Wrist univ. left 1 unit 0 6 Active loratadine (CLARITIN) 10 mg tablet Take 10 mg by mouth once daily. Active fluticasone (FLOVENT HFA) 44 mcg/Actuation inhalerIndicatio ns:Cough Inhale 1 Puff by mouth 2 times daily. 0 6 Active Hospital, Clinic, or Other Facility Administered Medication Ordered Dose Route Frequency Start Date End Date Status etonogestrel subdermal implant 1 Each (NEXPLANON)Indications:Nexpla non insertion 1 Each Sdrm Q 3 YEARS 04/09/2015 Active Active Problems Problem Noted Date Diagnosed Date S/p excision of left carpome tacarpal boss, DOS 10/08/[address] Nevarez 10/17/2015 Andrea's thyroiditis 01/15/2015 Low HDL (under 40) 01/15/2015 Vitamin D deficiency 12/27/2013 Overview (12/27/2013): VITAMIN D TOTAL Date Value Range Status 12/26/2013 14.9* 30.0-80.0 ng/mL Final BMI 29.0-29.9,adult 12/26/2013 Overview (12/26/2013): Body mass index is 29.37 kg/(m^2) on 12/26/2013. Patient's Body mass index is 29.37 kg/(m^2). Normal BMIs for ages 18-64 is between 18.5 and 24.9; normal range for ages 65+ is 23-30 so this BMI is out of the normal range. To lose weight we reviewed risks and benefits of appropriate options such as diet, exercise, and medications. Patient's strategy will be self-directed nutrition plan and self-directed exercise program. High cholesterol 12/26/2013 Overview (12/26/2013): Had mildly elevated cholesterol and triglycerides at her employment health screening--recommended fish oil At risk for bone density loss 12/26/2013 Family history of BRCA1 gene positive 12/26/2013 Overview (12/29/2013): Mother and maternal grandmother, Gayatri is BRCA 1 negative--genetic counselor at [place] recommended mammogram every five years due to 75% accuracy of BRCA screening in 2006--last mammogram was in 2011 at [facility] (negative) Chronic headache disorder 12/26/2013 Overview (12/26/2013): Ever since concussion in 1998. Pelvic floor weakness in female 12/26/2013 Urine, incontinence, stress female 12/26/2013 Resolved Problems Problem Noted Date Diagnosed Date Resolved Date Obsessive-compulsive disorders 04/16/2013 12/26/2013 Depressive disorder, not elsewhere classified 04/16/19 14 12/26/2013 Overview (12/26/2013): Stopped therapy in September Hypoactive sexual desire disorder 04/16/2013 12/26/2013 Supervision of other normal 09/05/2012 12/26/2013 Overview (10/30/2012): Hx VERY precipitous deliveries (20-30 minutes from onset of active labor to delivery) TDaP 09/05/2012 It's a boy! History of preeclampsia, needed magnesium after delivery of 2nd baby GBS negative Unspecified hypothyroidism 11/17/2005 1 Overview (11/24/2005): TSH (UIU/mL) Date Value 11/12/2005 5.33* Routine general medical exam ination at a health care facility 03/02/2005 12/26/2013 Overview (11/24/2005): last pap= 02/08 Hx of abn. pap=0 family hx of BRCA Last Lipids Chol: T HDL:43011/12/2005 LDL:78846 GLUCOSE (mg/dL) Date Value 11/12/2005 76 BSE= reg Eye exam= 01/09 Td= Smoker= 0 CELLULITIS 05/03/2003 05/17/2003 HEADACHE - CONCUSSION; [facility] 12/20/2000 12/26/2013 Dysmenorrhea 11/24/2000 12/26/2013 Immunizations Name Administration Dates Next Due Hepatitis B (Peds) 11/09/1995 Influenza, IIV4 12/19/2014 Td (Age >=7 Years) 10/24/1997 Tdap 09/05/2012 Tuberculin (PPD) 02/10/2004 Family History Medical History Relation Name Comments Heart Disease Father Anatoly Other Father Anatoly gallbladder, ov erweight Psychiatric illness Father Anatoly Heart Disease Maternal Grandfather Other Maternal Grandmother Candida BRCA 1 positive, ovarian cancer Cancer-breast Mother Liana BRCA 1 positiv e Diabetes Paternal Grandfather Good Health Son 4 Good Health Son 5 Good Health Son 6 Relation Name Status Comments Father Anatoly Alive . 1957 Maternal Grandfather Maternal Grandmother Candida (Age 50) ov cindy [place], BRCA1 positive Mother Liana Alive . 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 Not on file Not on file Not on file Obstetrics History Para Term AB IAB SAB Ectopic Multiple Livin g Live Births 4 3 3 0 1 0 1 0 0 3 3 Date Outcome GA Total Labor Labor/2nd/3rd Weight Sex Type Anes PTL Maral A1 A5 Name Clin 8 SAB Comments:D&C 2008 Term 42w 0d 4.22 kg (9 lb 5 oz) M Living [facility] 2009 Term 37w 0d 3.03 kg (6 lb 11 oz) M Living Andrei Comments:37 weeks 2012 Term 37w 3d 3.03 kg (6 lb 11 oz) M [facility] Last Filed Vital Signs Vital Sign Reading Time Taken Comments Blood Pressure 118/76 01/26/2016 2:[address] MACHINE OPERATOR Pulse 76 01/26/2016 2:[address] MACHINE OPERATOR Temperature 36.5 C (97.7 F) 01/26/2016 2:[address] MACHINE OPERATOR Respiratory Rate 16 10/08/2015 3:45 PM CDT Oxygen Saturation 100% 01/26/2016 2:[address] MACHINE OPERATOR Inhaled Oxygen Concentration - - Weight 90.3 kg (199 lb) 01/26/2016 2:[address] MACHINE OPERATOR Height 167 cm (5' 5.75) 10/08/2015 10:47 AM CDT Body Mass Index 32.37 10/08/2015 10:47 AM CDT Plan of Treatment Health Maintenance Due Date Last Done Comments HIV for age 15-65 07/23/1998 Hepatitis C screening for age 18-79 07/23/2001 Depression screening for age 12+ 03/24/2016 03/24/2015 BMI (ht and wt on same day) for age 18+ 10/02/2016 10/03/2015, 03/24/2015 Pap test for age 21-65 01/13/2018 5, 04/21/2012 (Completed outside of [facility]), 03/10/2006, Additional history exists Tetanus booster 09/05/2022 09/05/2012, 10/24/1997 COVID-19 vaccine series (2023- season) 2023 Influenza for age 9-49 11/06/2023 5, 12/19/2014, 12/24/2013 (Completed outside of [facility]) Tdap Completed 09/05/2012 Pneumococcal series for age 6-49 Aged Out No longer eligible based on patient's age to complete this topic Procedures Procedure Name Priority Date/Time Associated Diagnosis Comments FILM WASHER THIN PREP PAP SCREEN IMAGED Routine 01/13/2015 4:[address] MACHINE OPERATOR Cervical cancer screening from Last 3 Months or Most Recently Relevant to Health Maintenance Results * FILM WASHER THIN PREP PAP SCREEN IMAGED (01/13/2015 4:[address] MACHINE OPERATOR) FILM WASHER CYTOLOGY See Anatomic Pathology case 01/18/2015 5:[address] MACHINE OPERATOR [facility] Specimen (specimen) Non-Blood / Unknown 01/13/2015 4:[address] MACHINE OPERATOR 01/13/2015 4:[address] MACHINE OPERATOR us Thais Corcoran DO PATHOLOGY/CYTOLOGY Final Re sult [facility] [address] [place] [address], [place] from Last 3 Months or Most Recently Relevant to Health Maintenance Insurance * Guarantor: [facility] CONTRACT,[facility] Account Type Relation to Patient Date of Phone Billing Address Contract 1971 [employer] [address] [place] [id number] Advance Directives * Full Code (Latest Code Status on File) Date Activated Date Inactivated Comments 10/08/2015 1:58 PM 10/08/2015 7:09 PM * Full Code Date Activated Date Inactivated Comments 10/08/2015 10:37 AM 10/08/2015 1:58 PM * Full Code Date Activated Date Inactivated Comments 12/06/2011 11:58 AM 12/07/2011 2:11 AM * Full Code Date Activated Date Inactivated Comments 11/29/2011 12:04 PM 11/30/2011 2:07 AM * Full Code Date Activated Date Inactivated Comments 11/24/2011 2:27 PM 11/25/2011 2:16 AM Care Teams Truck Driver Instructor Relationship Specialty [place] [address] [facility] [place] [address] PCP - General Family Practice 01/07/15
--- OUTSIDE RECORDS SUMMARY | 2024-03-09 07:12 | XMS_ITS | Referral Summary ---
Author Organization [facility] Address [address] [place] [address] Care Team Providers Care Peanut Picker Name Role Phone Stefany Whitmore APRN JAVA DEVELOPER ARCHITECT Primary Care Provider + Stefany Whitmore APRN JAVA DEVELOPER ARCHITECT Unavailable [phone] Yvette Graves MD Unavailable [phone] Allergies Active Allergy Reactions Criticality Noted Date [...] Adán is BRCA 1 negative--genetic counselor at [facility] recommended mammogram every five years due to 75% accuracy of BRCA screening in 2006--last mammogram was in 2011 at [facility] (negative) High cholesterol 12/26/2013 Overview (12/28/2019): Overview: [...] Vaccine (Adacel) 04/06/2017 Td (Adult), Adsorbed 10/06/1997 Social History Tobacco Use Types Packs/Day Years [...] on file Legal Sex Female 4:16 AM PARQUETRY LAYER Gender Identity Not on file Sexual Orientation [...] Body Mass Index 29.54 02/04/2021 10:55 AM PARQUETRY LAYER Plan of Treatment Not on file Procedures Procedure Name Priority Date/Time Associated Diagnosis [...] SCREENING DIGITAL BILATERAL Routine 05/06/2011 1:50 PM PARQUETRY LAYER from Last 3 Months or Most Recently Relevant to Health Maintenance Results * Pap imaged thin layer screen with HPV - recommended age 30 - 65 years (select HPV order below) (12/26/2019 11:54 AM CDT) PAP NIL DIMASATH Ank[place] Report Patient Name: ADÁN LEE MR#: [id number] Specimen #: [id number] Collected: 12/26/2019 Received: 12/27/2019 Reported: 12/31/2019 14:25 Ordering Phy(s): STEFANY WHITMORE For improved result formatting, select 'View [...] adenocarcinomas or other cancers. COLLECTION SITE: Client: [facility] Location: [facility] (R) The technical component of this testing was completed at the [facility], with the professional component performed at the [facility], [address] [place] [id number] ([phone]) COPATH Cytologic material (specimen) 12/26/2019 11:54 AM CDT 12/27/2019 11:17 AM CDT Stefany Whitmore APRN JAVA DEVELOPER ARCHITECT LAB - OPTIME CLINICAL SP ECIMEN Final Result COPATH * HPV High Risk Types DNA Cervical (12/26/2019 11:45 AM CDT) HPV Source Sure[facility] 12/26/2019 11:54 AM CDT [facility] HPV 16 DNA Negative NEG^Nega tive 01/01/2020 [...] and its performance characteristics determined by the [facility], Molecular Diagnostics Laboratory. It has not [...] Description Cervical Cells 12/26/2019 11:54 AM CDT [facility] Cervical Cells 12/26/2019 11 :45 AM CDT 12/26/2019 12:16 PM CDT Stefany Whitmore APRN JAVA DEVELOPER ARCHITECT LAB - BLOOD ORDERABLES F inal Result [facility] [address] [place] [address] [facility] [address] [place] [address] * (ABNORMAL) Lipid panel reflex to direct LDL Fasting (12/26/2019 11:45 AM CDT) Cholesterol 221(H) <200 mg/dL 12/27/2019 3:55 PM CDT [facility] Comment:Desirable: <200 mg/d l Triglycerides 103 <150 mg/dL 12/27/2019 3:55 PM CDT [facility] Comment:Fasting specimen HDL Cholesterol 58 >49 mg/dL 0 3:56 PM CDT [facility] LDL Cholesterol Calculated 142(H) <100 mg/dL 12/27/2019 3:56 PM CDT [facility] Comment: Above desirable: 100-129 mg/dl Borderline High: 130-159 mg/dL High: 160-189 mg/dL Very high: >189 mg/dl Non HDL Cholesterol 163(H) <130 mg/dL 12/27/2019 3:56 PM CDT [facility] Comment: Above Desirable: 130-159 mg/dl Borderline high: 160-189 mg/dl High: 190-219 mg/dl Very high: >219 mg/dl Blood specimen (specimen) 12/26/2019 11:45 AM CDT 12/26/2019 12:16 PM CDT us Stefany Whitmore HITCH TECHNICIAN JAVA DEVELOPER ARCHITECT LAB - BLOOD ORDERABLES F inal Result [facility] [address] [place] [address] * (ABNORMAL) BASIC METABOLIC PANEL (12/26/2019 11:45 AM CDT) Sodium 136 133 - 144 mmol/L 12/27/2019 3:27 PM CDT [facility] Potassium 4.0 3.4 - 5.3 mmol/L 12/27/2019 3:27 PM CDT [facility] Chloride 109 94 - 109 mmol/L 12/27/2019 3:27 PM CDT [facility] Carbon Dioxide 19(L) 20 - 32 mmol/L 12/27/2019 3:55 PM CDT [facility] Anion Gap 8 3 - 14 mmol/L 12/27/2019 3:55 PM CDT [facility] Glucose 99 70 - 99 mg/dL 12/27/2019 3:55 PM CDT [facility] Comment:Fasting specimen Urea Nitrogen 16 7 - 30 mg/dL 12/27/2019 3:55 PM CDT [facility] Creatinine 0.80 0.52 - 1.04 mg/dL 12/27/2019 3:55 PM CDT [facility] GFR Estimate >90 >60 mL/min/{1 .73_m2} 12/27/2019 3:55 PM CDT [facility] Comment: Non GFR Calc Starting 02/21/2018, serum creatinine based estimated GFR (eGFR) will be calculated using the Chronic Kidney Disease Epidemiology Collaboration (CKD-EPI) equation. GFR Estimate If Black >90 >60 mL/min/{1 .73_m2} 12/27/2019 3:55 PM CDT [facility] Comment: GFR Calc Starting 02/21/2018, serum creatinine based estimated GFR (eGFR) will be calculated using the Chronic Kidney Disease Epidemiology Collaboration (CKD-EPI) equation. Calcium 9.1 8.5 - 10.1 mg/dL 12/27/2019 3:55 PM CDT [facility] Blood specimen (specimen) 12/26/2019 11:45 AM CDT 12/26/2019 12:16 PM CDT us Stefany Whitmore HITCH TECHNICIAN JAVA DEVELOPER ARCHITECT LAB - BLOOD ORDERABLES F inal Result [facility] [address] [place] [address] * HIV Antigen Antibody Combo (11/11/2016) HIV Antigen Antibody Combo neg Blood specimen (specimen) us Patient Reported LAB - BLOOD ORDERABLES Final Re sult * Mammo Screening digital (bilat) (05/06/2011 1:50 PM PARQUETRY LAYER) Anatomical Region Laterality Modality Breast Bilateral Other 05/06/2011 1:50 PM PARQUETRY LAYER Impressions 05/26/2011 2:05 PM CDT SCREENING MAMMOGRAM, BILATERAL, DIGITAL w/CAD - May 06, 2011 1:50:00 PM BREAST SYMPTOMS: No current breast complaints. COMPARISON: None available. PARENCHYMAL PATTERN: Heterogeneously dense, limiting mammographic sensitivity. COMMENTS: No findings of suspicion for malignancy. IMPRESSION: BI-RADS 1, NEGATIVE. RECOMMENDATION: Recommend annual screening mammography. Exam results letter mailed to patient. Keya Perez PA-C [facility] MAMMOGRAPHY ORDPromise CASTRO Edited from Last 3 Months or Most Recently Relevant to Health Maintenance Insurance [employer] [place] [employer] Advance Directives For more information, please contact: [phone] * Full Code (Latest Code Status on File) Date Activated Date Inactivated Comments 04/25/2017 1:00 PM 04/26/2017 6:16 PM * No Code Status Date Activated Date Inactivated Comments 01/07/2004 2:37 PM 01/07/2004 3:37 PM OK TO LM * No Code Status Date Activated Date Inactivated Comments 12/27/2003 1:50 PM 12/27/2003 1:50 PM Care Teams Peanut Picker Relationship Specialty Start Date End Date Stefany Whitmore APRN JAVA DEVELOPER ARCHITECT PCP - General Nurse Practitioner - Family 07/12/16 Stefany Whitmore APRN JAVA DEVELOPER ARCHITECT [address] [place] [address] Assigned PCP 05/31/21 Yvette Graves MD [address] [place] [address] Physician Physical Medicine and Rehabilitation 07/22/22
--- OUTSIDE RECORDS SUMMARY | 2024-03-09 07:12 | XMS_ITS | Encounter Summary ---
Author Organization [facility] Address [address] [place] [address] Care Team Providers Care Cattle Manager Name Role Phone Christiane Love APRN MANAGER COMPANY Primary Care Provider + Yara Fregoso OD Unavailable [phone] Christiane Love APRN MANAGER COMPANY Unavailable [phone] Yvette Graves MD Unavailable [phone] Encounter Details Date Type Department Care Team (Late st Contact Info) Description 04/09/2022 [facility] Medical Advice [facility] [address] [address] Rema Ramos APRN CNP Social History Tobacco Use Types Packs/Day Years Used Date Smoking Tobacco: Never Smokeless Tobacco: Never Alcohol Use Standard Drinks/Week Comments No 0 (1 standard drink = 0.6 oz pur e alcohol) PHQ-2 Answer Date Recorded PHQ-2 Score 0 03/23/2022 Comments No Sex and Gender Information Value Date Recorded Sex Assigned at Not on file Legal Sex Female 4:16 AM WHITE HAT HACKER Gender Identity Not on file Sexual Orientation Not on file documented as of this encounter Plan of Treatment Not on file documented as of this encounter Visit Diagnoses Not on filedocumented in this encounter Additional Health Concerns Assessment Noted Time PHQ-9 Depression Total Score: 15 12/02/2 021 7:30 AM WHITE HAT HACKER documented as of this encounter Care Teams Cattle Manager Relationship Specialty Start Date End Date Christiane Love APRN MANAGER COMPANY PCP - General Nurse Practitioner - Family 07/12/16 Yara Fregoso OD [address] [facility] [place] [address] Assigned Surgical Provider 03/15/21 09/10/22 Christiane Love APRN MANAGER COMPANY [address] [place] [address] Assigned PCP 05/31/21 Yvette Graves MD [address] [place] [address] Physician Physical Medicine and Rehabilitation 07/22/22 documented as of this encounter
--- OUTSIDE RECORDS SUMMARY | 2024-03-09 07:12 | XMS_ITS | Encounter Summary ---
Author Organization [facility] Address [address] [place] [address] Care Team Providers Care Life Skills Coordinator Name Role Phone Christiane Love APRN LINEN SORTER Primary Care Provider + Yara Fregoso OD Unavailable Christiane Love APRN LINEN SORTER Unavailable [phone] Yvette Graves MD Unavailable [phone] Encounter Details Date Type Department Care Team (Late st Contact Info) Description 07/16/2022 [facility] [address] [address] Rema Ramos APRN CNP Social History Tobacco Use Types Packs/Day Years Used Date Smoking Tobacco: Never Smokeless Tobacco: Never Alcohol Use Standard Drinks/Week Comments No 0 (1 standard drink = 0.6 oz pur e alcohol) PHQ-2 Answer Date Recorded PHQ-2 Score 0 06/21/2022 Comments No Sex and Gender Information Value Date Recorded Sex Assigned at Not on file Legal Sex Female 4:16 AM RUNNER WORKER Gender Identity Not on file Sexual Orientation Not on file documented as of this encounter Plan of Treatment Not on file documented as of this encounter Visit Diagnoses Not on filedocumented in this encounter Additional Health Concerns Assessment Noted Time PHQ-9 Depression Total Score: 15 12/02/2 021 7:30 AM RUNNER WORKER documented as of this encounter Care Teams Life Skills Coordinator Relationship Specialty Start Date End Date Christiane Love APRN LINEN SORTER PCP - General Nurse Practitioner - Family 07/12/16 Yara Fregoso OD [address] [facility] [place] [address] Assigned Surgical Provider 03/15/21 09/10/22 Christiane Love APRN LINEN SORTER [address] [place] [address] Assigned PCP 05/31/21 Yvette Graves MD [address] [place] [address] Physician Physical Medicine and Rehabilitation 07/22/22 documented as of this encounter
--- OUTSIDE RECORDS SUMMARY | 2024-03-09 07:13 | XMS_ITS | Encounter Summary ---
Author Organization [employer] Address [address] [place] [address] Care Team Providers Care Welder/Fabricator Name Role Phone Christiane Love APRN SWITCH BOX INSTALLER Primary Care Provider + Yara Fregoso OD Unavailable Christiane Love APRN SWITCH BOX INSTALLER Unavailable [phone] Yvette Graves MD Unavailable [phone] Reason for Visit * Reason Onset Date Comments Refill Request 11/04/2021 Encounter Details Date Type Department Care Team (Late st Contact Info) Description 11/04/2021 MyC Refill [facility] [address] [address] Rema Ramos APRN SWITCH BOX INSTALLER Refill Request Social History Tobacco Use Types Packs/Day Years Used Date Smoking Tobacco: Never Smokeless Tobacco: Never Alcohol Use Standard Drinks/Week Comments No 0 (1 standard drink = 0.6 oz pur e alcohol) PHQ-2 Answer Date Recorded PHQ-2 Total Score (Adult) - Positive if 3 or more points; Administer PHQ-9 if positive 4 02/04/2021 Comments No Sex and Gender Information Value Date Recorded Sex Assigned at Not on file Legal Sex Female 4:16 AM HEAVY EQUIPMENT OPERATOR/PAVER Gender Identity Not on file Sexual Orientation Not on file documented as of this encounter Plan of Treatment Not on file documented as of this encounter Visit Diagnoses Diagnosis Post concussion syndrome Postconcussion syndrome Attention and concentration deficit Attention or concentration deficit documented in this encounter Additional Health Concerns Assessment Noted Time PHQ-9 Depression Total Score: 15 021 7:30 AM HEAVY EQUIPMENT OPERATOR/PAVER documented as of this encounter Care Teams Welder/Fabricator Relationship Specialty Start Date End Date Christiane Love APRN SWITCH BOX INSTALLER PCP - General Nurse Practitioner - Family 07/12/16 Yara Fregoso OD [address] [facility] [place] [address] Assigned Surgical Provider 03/15/21 09/10/22 Christiane Love APRN SWITCH BOX INSTALLER [address] [place] [address] Assigned PCP 05/31/21 Yvette Graves MD [address] [place], [place] [address] Physician Physical Medicine and Rehabilitation 07/22/22 documented as of this encounter
--- OUTSIDE RECORDS SUMMARY | 2024-03-09 07:13 | XMS_ITS | Encounter Summary ---
Author Organization [facility] Address [address] [place] [address]. [place] [address] Care Team Providers Care Bottle House Quality Control Technician Name Role Phone Christiane Love APRN CLIP COATER Primary Care Provider + Yara Fregoso OD Unavailable Christiane Love APRN CLIP COATER Unavailable [phone] Yvette Graves MD Unavailable [phone] Encounter Details Date Type Department Care Team (Late st Contact Info) Description 12/10/2021 MyC Medical Advice [address] [address] Rosina Tom Social History Tobacco Use Types Packs/Day Years Used Date Smoking Tobacco: Never Smokeless Tobacco: Never Alcohol Use Standard Drinks/Week Comments No 0 (1 standard drink = 0.6 oz pur e alcohol) PHQ-2 Answer Date Recorded PHQ-2 Score 2 12/08/2021 Comments No Sex and Gender Information Value Date Recorded Sex Assigned at Not on file Legal Sex Female 4:16 AM CLASP MACHINE OPERATOR Gender Identity Not on file Sexual Orientation Not on file documented as of this encounter Plan of Treatment Not on file documented as of this encounter Visit Diagnoses Not on filedocumented in this encounter Additional Health Concerns Assessment Noted Time PHQ-9 Depression Total Score: 15 021 7:30 AM CLASP MACHINE OPERATOR documented as of this encounter Care Teams Bottle House Quality Control Technician Relationship Specialty Start Date End Date Christiane Love APRN CLIP COATER PCP - General Nurse Practitioner - Family 07/12/16 Yara Fregoso OD [address] [facility] [place] [address] Assigned Surgical Provider 03/15/21 09/10/22 Christiane Love APRN CLIP COATER [address] [place] [address] Assigned PCP 05/31/21 Yvette Graves MD [address] [place] [address] Physician Physical Medicine and Rehabilitation 07/22/22 documented as of this encounter
--- OUTSIDE RECORDS SUMMARY | 2024-03-09 07:13 | XMS_ITS | Encounter Summary ---
Author Organization [place] Address [facility] [place] [address] Care Team Providers Care Instrumentation Technologist Name Role Phone Christiane Love APRN MANAGER UTILIZATION Primary Care Provider + Yara Fregoso OD Unavailable Christiane Love APRN MANAGER UTILIZATION Unavailable [phone] Yvette Graves MD Unavailable Reason for Visit * Reason Onset Date Comments Refill Request 11/06/2021 methylphenidate (RITALIN) 5 MG tablet Encounter Details Date Type Department Care Team (Late st Contact Info) Description 11/06/2021 MyC Refill [facility] [address] [address] Rema Ramos APRN CNP Refill Request (methylphenidate (RITALIN) ... Social History Tobacco Use Types Packs/Day Years [...] on file Legal Sex Female 4:16 AM TRAVEL FREIGHT AND PASSENGER AGENT Gender Identity Not on file Sexual Orientation Not on file documented as of this encounter Miscellaneous Notes * Telephone Encounter - Ruth Santos - 11/06/2021 12:24 PM CDT Medication Question or Refill Contacts Type Contact Phone/Fax 11/06/2021 07:12 AM CDT Web (Incoming) Gayatri Leal (Self) What medication are you calling about (include dose and sig)?: methylphenidate (RITALIN) 5 MG tablet Controlled Substance Agreement on file: CSA -- Patient Level: CSA: None found at the patient level. Who prescribed the medication?: bandar Do you need a refill? Yes: When did you use the medication last? daily Patient offered an appointment? No Do you have any questions or concerns? Yes: pt is completely out of medication Preferred Pharmacy: [facility]/pharmacy #[id number] [place], [place] - [address] [facility] [address] [facility] [address] Could we send this information to you in [facility] or would you prefer to receive a phone call?: Patient would prefer a phone call Okay to leave a detailed message?: Yes at Cell number on file: Telephone Information: documented in this encounter Plan of Treatment Not on file documented as of this encounter Visit Diagnoses Diagnosis Post concussion syndrome Postconcussion syndrome Attention and concentration deficit Attention or concentration deficit documented in this encounter Additional Health Concerns Assessment Noted Time PHQ-9 Depression Total Score: 15 021 7:30 AM TRAVEL FREIGHT AND PASSENGER AGENT documented as of this encounter Care Teams Instrumentation Technologist Relationship Specialty Start Date End Date Christiane Love APRN CNP PCP - General Nurse Practitioner - Family 07/12/16 Yara Fregoso OD [address] [facility] [place] [address] Assigned Surgical Provider 03/15/21 09/10/22 Christiane Love APRN [facility] [address] [place] [address] Assigned PCP 05/31/21 Yvette Graves MD [address] [place] [address] Physician Physical Medicine and Rehabilitation 07/22/22 documented as of this encounter
--- OUTSIDE RECORDS SUMMARY | 2024-03-09 07:14 | XMS_ITS | Encounter Summary ---
Author Organization [facility] [place] Address [facility] [place] [address] Care Team Providers Care Tnt Line Supervisor Name Role Phone Christiane Love APRN, CNP Primary Care Provider + Errol Salinas MD Unavailable Joyce Mcduffie Unavailable [phone] Yara Fregoso OD Unavailable [phone] Christiane Love APRN JOB TRAINING SUPERVISOR Unavailable [phone] Christiane Love APRN JOB TRAINING SUPERVISOR Unavailable [phone] Yvette Graves MD Unavailable [phone] Encounter Details Date Type Department Care Team (Late st Contact Info) Description 03/17/2021 MyC Medical Advice [facility] [address] [address] Rema Ramos APRN CNP Social [...] file Legal Sex Female 4:16 AM MANAGER DOCUMENTATION Gender Identity Not on file Sexual Orientation Not on file COVID-19 Exposure Response Date Recorded In the last month, have you been in contact with someone who was confirmed or suspected to have Coronavirus / COVID-19? No / Unsure 03/10/2021 10:33 AM MANAGER DOCUMENTATION documented as of this encounter Plan of Treatment Not on file documented as of this encounter Visit Diagnoses Not on filedocumented in this encounter Additional Health Concerns Assessment Noted Time PHQ-9 Depression Total Score: 15 021 7:30 AM MANAGER DOCUMENTATION documented as of this encounter Care Teams Tnt Line Supervisor Relationship Specialty Start Date End Date Christiane Love APRN JOB TRAINING SUPERVISOR PCP - General Nurse Practitioner - Family 07/12/16 [place] [address] [place] [address] Assigned Musculoskeletal Provider 01/20/20 07/04/21 Joyce Mcduffie GC [address] [place], [place] [address] Assigned OBGYN Provider 01/25/21 04/04/21 Yara Fregoso OD [address] [facility] [place] [address] Assigned Surgical Provider 03/15/21 09/10/22 Christiane Love APRN JOB TRAINING SUPERVISOR [address] [place] [place] [address] Assigned PCP 05/31/21 Christiane Love APRN JOB TRAINING SUPERVISOR [address] [address] [address] Assigned PCP 03/15/21 05/30/21 Yvette Graves MD [address] [place] [address] Physician Physical Medicine and Rehabilitation 07/22/22 documented as of this encounter
--- OUTSIDE RECORDS SUMMARY | 2024-03-09 07:14 | XMS_ITS | Encounter Summary ---
Author Organization [place] Address [facility] [place] [address] Care Team Providers Care Loom Overhauler Name Role Phone Christiane Love APRN GRADUATE ASSISTANT ATHLETIC TRAINER Primary Care Provider + Errol Salinas MD Unavailable Yara Fregoso OD Unavailable Christiane Love APRN GRADUATE ASSISTANT ATHLETIC TRAINER Unavailable [phone] Christiane Love APRN GRADUATE ASSISTANT ATHLETIC TRAINER Unavailable [phone] Yvette Graves MD Unavailable [phone] Encounter Details Date Type Department Care Team (Late st Contact Info) Description 05/28/2021 MyC Medical Advice [facility] [address] [address] Rema Ramos APRN CNP Social [...] on file Legal Sex Female 4:16 AM HARDWARE INSTALLATION COORDINATOR Gender Identity Not on file Sexual Orientation Not on file documented as of this encounter Plan of Treatment Not on file documented as of this encounter Visit Diagnoses Not on filedocumented in this encounter Additional Health Concerns Assessment Noted Time PHQ-9 Depression Total Score: 15 021 7:30 AM HARDWARE INSTALLATION COORDINATOR documented as of this encounter Care Teams Loom Overhauler Relationship Specialty Start Date End Date Christiane Love APRN GRADUATE ASSISTANT ATHLETIC TRAINER PCP - General Nurse Practitioner - Family 07/12/16 [place] [address] [place] [address] Assigned Musculoskeletal Provider 01/20/20 07/04/21 Yara Fregoso OD [address] [facility] [place] [address] Assigned Surgical Provider 03/15/21 09/10/22 Christiane Love APRN GRADUATE ASSISTANT ATHLETIC TRAINER [address] [address] [place] [address] Assigned PCP 05/31/21 Christiane Love APRN GRADUATE ASSISTANT ATHLETIC TRAINER [address] [address] [address] Assigned PCP 03/15/21 05/30/21 Yvette Graves MD [address] [place] [address] Physician Physical Medicine and Rehabilitation 07/22/22 documented as of this encounter
--- OUTSIDE RECORDS SUMMARY | 2024-03-09 07:14 | XMS_ITS | Encounter Summary ---
Author Organization [place] Address [facility] [place] [address] Care Team Providers Care Charge Coordinator Name Role Phone Christiane Love APRN HEALTH INFORMATION MANAGEMENT DIRECTOR Primary Care Provider + Yara Fregoso OD Unavailable Christiane Love APRN HEALTH INFORMATION MANAGEMENT DIRECTOR Unavailable Yvette Graves MD Unavailable [phone] Reason for Visit * Reason Comments Medication Refill Encounter Details Date Type Department Care Team (Late st Contact Info) Description 09/29/2021 [facility] [address] [facility] [address] Christiane Love APRN HEALTH INFORMATION MANAGEMENT DIRECTOR [address] [place], [place] [id number] Medication Refill Social History Tobacco Use Types Packs/Day Years [...] on file Legal Sex Female 4:16 AM BLOCK PLACER Gender Identity Not on file Sexual Orientation Not on file documented as of this encounter Miscellaneous Notes * Telephone Encounter - Rory Cruz PA-C - 09/29/2021 12:48 PM CDT PCP gone this week. I will refill #90. Rory * Telephone Encounter - Jessica Ferrari RN - 09/29/2021 9:45 AM CDT Routing refill request to provider for review/approval because: Drug not on the [facility] refill protocol Jessica Ferrari RN on 09/29/2021 at 9:45 AM documented in this encounter Plan of Treatment Not on file documented as of this encounter Visit Diagnoses Diagnosis Intractable migraine without aura and with status migrainosus Migraine without aura, with intractable migraine, so stated, with status migrainosus Neck pain Cervicalgia Body aches Generalized pain documented in this encounter Additional Health Concerns Assessment Noted Time PHQ-9 Depression Total Score: 15 021 7:30 AM BLOCK PLACER documented as of this encounter Care Teams Charge Coordinator Relationship Specialty Start Date End Date Christiane Love APRN HEALTH INFORMATION MANAGEMENT DIRECTOR PCP - General Nurse Practitioner - Family 07/12/16 Yara Fregoso OD [address] [facility] ROS[place]AS [address] Assigned Surgical Provider 03/15/21 09/10/22 Christiane Love APRN HEALTH INFORMATION MANAGEMENT DIRECTOR [address] [address] [address] Assigned PCP 05/31/21 Yvette Graves MD [address] [place] [address] Physician Physical Medicine and Rehabilitation 07/22/22 documented as of this encounter
--- OUTSIDE RECORDS SUMMARY | 2024-03-09 07:14 | XMS_ITS | Encounter Summary ---
Author Organization [place] Address [facility]0 [facility] [place] [address] Care Team Providers Care Sock Lining Examiner Name Role Phone Christiane Love APRN RUG TOUCH UP PAINTER Primary Care Provider + Errol Salinas MD Unavailable Yara Fregoso OD Unavailable Christiane Love APRN RUG TOUCH UP PAINTER Unavailable [phone] Yvette Graves MD Unavailable [phone] Encounter Details Date Type Department Care Team (Late st Contact Info) Description 06/08/2021 [facility] Adv[facility] [address] [address] Rema Ramos APRN CNP Social [...] on file Legal Sex Female 4:16 AM COST RECOVERY TECHNICIAN Gender Identity Not on file Sexual Orientation Not on file documented as of this encounter Plan of Treatment Not on file documented as of this encounter Visit Diagnoses Not on filedocumented in this encounter Additional Health Concerns Assessment Noted Time PHQ-9 Depression Total Score: 15 021 7:30 AM COST RECOVERY TECHNICIAN documented as of this encounter Care Teams Sock Lining Examiner Relationship Specialty Start Date End Date Christiane Love APRN RUG TOUCH UP PAINTER PCP - General Nurse Practitioner - Family 07/12/16 [place] [address] [address] Assigned Musculoskeletal Provider 01/20/20 07/04/21 Yara Fregoso OD [address] [facility] [place] [address] Assigned Surgical Provider 03/15/21 09/10/22 Christiane Love APRN RUG TOUCH UP PAINTER [address] [facility] [place] [address] Assigned PCP 05/31/21 Yvette Graves MD [address] [place] [address] Physician Physical Medicine and Rehabilitation 07/22/22 documented as of this encounter
--- OUTSIDE RECORDS SUMMARY | 2024-03-09 07:14 | XMS_ITS | Encounter Summary ---
Author Organization [place] Address [facility]0 [facility] [place] [address] Care Team Providers Care Invasive Cardiovascular Technologist Name Role Phone Christiane Love APRN FLATBED DRIVER Primary Care Provider + Errol Salinas MD Unavailable Joyce Mcduffie Unavailable [phone] Christiane Love APRN FLATBED DRIVER Unavailable Yara Fregoso OD Unavailable Christiane Love APRN FLATBED DRIVER Unavailable Christiane Love APRN FLATBED DRIVER Unavailable Yvette Graves MD Unavailable [phone] Encounter Details Date Type Department Care Team (Late st Contact Info) Description 02/11/2021 [facility] Advice [facility] [address] [place] [address] Christiane Love APRN FLATBED DRIVER [address] [place] [address] Social History Tobacco Use Types Packs/Day Years [...] on file Legal Sex Female 4:16 AM HOSPITAL WELLNESS COORDINATOR Gender Identity Not on file Sexual Orientation Not on file COVID-19 Exposure Response Date Recorded In the last month, have you been in contact with someone who was confirmed or suspected to have Coronavirus / COVID-19? No / Unsure 02/06/2021 11:21 AM HOSPITAL WELLNESS COORDINATOR documented as of this encounter Miscellaneous Notes * Telephone Encounter - Samina Alatorre RN - 02/12/2021 3:05 PM CST Message sent to patient. Samina Alatorre RN ITAL WELLNESS COORDINATOR * Telephone Encounter - Christiane Love APRN CNP - 02/12/2021 12:49 PM CST I did put in a new letter (she can access via [employer]) and can update forms when in the office tomorrow. Please update pt. Christiane Love CNP ITAL WELLNESS COORDINATOR * Telephone Encounter - Katarina Morley LPN - 02/11/2021 3:10 PM CST Forms have been completed and state RTW on 02/13/2021. I will place them back on her desk to see ifdiego wants to update them to the state return to work on 02/17/2021 They have not been faxed. ITAL WELLNESS COORDINATOR * Telephone Encounter - Ethel Jaramillo RN - 02/11/2021 2:43 PM HOSPITAL WELLNESS COORDINATOR Will forward to Christiane Love for advisal. ITAL WELLNESS COORDINATOR documented in this encounter Plan of Treatment Not on file documented as of this encounter Visit Diagnoses Not on filedocumented in this encounter Additional Health Concerns Assessment Noted Time PHQ-9 Depression Total Score: 15 021 7:30 AM HOSPITAL WELLNESS COORDINATOR documented as of this encounter Care Teams Invasive Cardiovascular Technologist Relationship Specialty Start Date End Date Christiane Love APRN FLATBED DRIVER PCP - General Nurse Practitioner - Family 07/12/16 [place] [address] [place] [address] Assigned Musculoskeletal Provider 01/20/20 07/04/21 Joyce Mcduffie GC [address] [place] [address] Assigned OBGYN Provider 01/25/21 04/04/21 Christiane Love APRN FLATBED DRIVER [address] [address] Assigned PCP 02/08/21 03/14/21 Yara Fregoso OD [address] [place] [address] Assigned Surgical Provider 03/15/21 09/10/22 Christiane Love APRN FLATBED DRIVER [address] [address] Assigned PCP 05/31/21 Christiane Love APRN FLATBED DRIVER [address] [address] [address] Assigned PCP 03/15/21 05/30/21 Yvette Graves MD [address] [place] [address] Physician Physical Medicine and Rehabilitation 07/22/22 documented as of this encounter
--- OUTSIDE RECORDS SUMMARY | 2024-03-09 07:14 | XMS_ITS | Encounter Summary ---
Author Organization [place] Address [facility]0 [facility] [place] [address] Care Team Providers Care Miller Helper Name Role Phone Christiane Love APRN, CNP Primary Care Provider + Errol Salinas MD Unavailable Joyce Mcduffie Unavailable [phone] Yara Fregoso OD Unavailable [phone] Christiane Love APRN ASSOCIATE EDITOR Unavailable Christiane Love APRN ASSOCIATE EDITOR Unavailable Yvette Graves MD Unavailable Reason for Visit * Reason Onset Date Comments Refill Request 03/16/2021 Antivert Encounter Details Date Type Department Care Team (Late st Contact Info) Description 03/16/2021 MyC Refill [facility] [address] [place] [address] Christiane Love APRN CNP [address] [place] [address] Refill Request (Antivert) Social History Tobacco Use Types Packs/Day Years [...] on file Legal Sex Female 4:16 AM JACK MACHINE OPERATOR Gender Identity Not on file Sexual Orientation Not on file COVID-19 Exposure Response Date Recorded In the last month, have you been in contact with someone who was confirmed or suspected to have Coronavirus / COVID-19? No / Unsure 03/10/2021 10:33 AM JACK MACHINE OPERATOR documented as of this encounter Miscellaneous Notes * Telephone Encounter - Samina Alatorre RN - 03/18/2021 12:05 PM CST Duplicate MACHINE OPERATOR documented in this encounter Plan of Treatment Not on file documented as of this encounter Visit Diagnoses Diagnosis Dizziness Dizziness and giddiness documented in this encounter Additional Health Concerns Assessment Noted Time PHQ-9 Depression Total Score: 15 021 7:30 AM JACK MACHINE OPERATOR documented as of this encounter Care Teams Miller Helper Relationship Specialty Start Date End Date Christiane Love APRN CNP PCP - General Nurse Practitioner - Family 07/12/16 [place] [address] [place], [place] [address] Assigned Musculoskeletal Provider 01/20/20 07/04/21 Joyce Mcduffie GC [address] [place], [place] [address] Assigned OBGYN Provider 01/25/21 04/04/21 Yara Fregoso OD [address] [facility] ROS[place] ARIAS [address] Assigned Surgical Provider 03/15/21 09/10/22 Christiane Love APRN ASSOCIATE EDITOR [address] [address] [address] Assigned PCP 05/31/21 Christiane Love APRN ASSOCIATE EDITOR [address] [address] [address] Assigned PCP 03/15/21 05/30/21 Yvette Graves MD [address] [place] [address] Physician Physical Medicine and Rehabilitation 07/22/22 documented as of this encounter
--- OUTSIDE RECORDS SUMMARY | 2024-03-09 07:15 | XMS_ITS | Encounter Summary ---
Author Organization [place] Address [facility]0 [facility] [place] [address] Care Team Providers Care Record Clerk Salesperson Name Role Phone Christiane Love APRN PUBLIC INFORMATION OFFICER Primary Care Provider + Christiane Love APRN PUBLIC INFORMATION OFFICER Unavailable [phone] Errol Salinas MD Unavailable Joyce Mcduffie GC Unavailable [phone] Christiane Love APRN PUBLIC INFORMATION OFFICER Unavailable [phone] Yara Fregoso OD Unavailable [phone] Christiane Love APRN PUBLIC INFORMATION OFFICER Unavailable [phone] Christiane Love APRN PUBLIC INFORMATION OFFICER Unavailable [phone] Yvette Graves MD Unavailable [phone] Encounter Details Date Type Department Care Team (Late st Contact Info) Description 02/21/2020 [facility] [address] [place] [address] Joyce Mcduffie, GC [address] [place] [address] Social History Tobacco Use Types Packs/Day Years Used Date Smoking Tobacco: Never Smokeless Tobacco: Never Alcohol Use Standard Drinks/Week Comments No 0 (1 standard drink = 0.6 oz pur e alcohol) PHQ-2 Answer Date Recorded PHQ-2 Score 3 12/26/2019 Comments No Sex and Gender Information Value Date Recorded Sex Assigned at Not on file Legal Sex Female 4:16 AM COAT PRESSER Gender Identity Not on file Sexual Orientation Not on file documented as of this encounter Plan of Treatment Not on file documented as of this encounter Visit Diagnoses Not on filedocumented in this encounter Additional Health Concerns Assessment Noted Time PHQ-9 Depression Total Score: 11 020 11:12 AM CDT documented as of this encounter Care Teams Record Clerk Salesperson Relationship Specialty Start Date End Date Christiane Love APRN PUBLIC INFORMATION OFFICER PCP - General Nurse Practitioner - Family 07/12/16 Christiane Love APRN PUBLIC INFORMATION OFFICER [address] [address] Assigned PCP 12/09/19 02/07/21 [place] [address] [address] [place] [address] Assigned Musculoskeletal Provider 01/20/20 07/04/21 Joyce Mcduffie GC [address] [place] [address] Assigned OBGYN Provider 01/25/21 04/04/21 Christiane Love APRN PUBLIC INFORMATION OFFICER [address] [address] [address] Assigned PCP 02/08/21 03/14/21 Yara Fregoso OD [address] [facility] ROS[place] ARIAS [address] Assigned Surgical Provider 03/15/21 09/10/22 Christiane Love APRN PUBLIC INFORMATION OFFICER [address] [place] [address] Assigned PCP 05/31/21 Christiane Love APRN PUBLIC INFORMATION OFFICER [address] [place] [place] [address] Assigned PCP 03/15/21 05/30/21 Yvette Graves MD [address] [place] [address] Physician Physical Medicine and Rehabilitation 07/22/22 documented as of this encounter
--- OUTSIDE RECORDS SUMMARY | 2024-03-09 07:15 | XMS_ITS | Encounter Summary ---
Author Organization [place] Address [address] [place] [address]. [place] [address] Care Team Providers Care It Project Manager Name Role Phone Christiane Love APRN PHARMACY CONSULTANT Primary Care Provider + Christiane Love APRN PHARMACY CONSULTANT Unavailable [phone] Errol Salinas MD Unavailable Joyce Mcduffie GC Unavailable [phone] Christiane Love APRN PHARMACY CONSULTANT Unavailable [phone] Yara Fregoso OD Unavailable Christiane Love APRN PHARMACY CONSULTANT Unavailable [phone] Christiane Love APRN PHARMACY CONSULTANT Unavailable [phone] Yvette Graves MD Unavailable [phone] Encounter Details Date Type Department Care Team (Late st Contact Info) Description 04/21/2020 [facility] [place] [facility] [address] [place] [address] Joyce Mcduffie, GC [address] [place] [address] Social History Tobacco Use Types Packs/Day Years Used Date Smoking Tobacco: Never Smokeless Tobacco: Never Alcohol Use Standard Drinks/Week Comments No 0 (1 standard drink = 0.6 oz pur e alcohol) PHQ-2 Answer Date Recorded PHQ-2 Score 2 02/27/2020 Comments No Sex and Gender Information Value Date Recorded Sex Assigned at Not on file Legal Sex Female 4:16 AM PROP SAWYER Gender Identity Not on file Sexual Orientation Not on file documented as of this encounter Plan of Treatment Not on file documented as of this encounter Visit Diagnoses Not on filedocumented in this encounter Additional Health Concerns Assessment Noted Time PHQ-9 Depression Total Score: 11 020 11:12 AM CDT documented as of this encounter Care Teams It Project Manager Relationship Specialty Start Date End Date Christiane Love APRN PHARMACY CONSULTANT PCP - General Nurse Practitioner - Family 07/12/16 Christiane Love APRN PHARMACY CONSULTANT [address] [address] [address] Assigned PCP 12/09/19 02/07/21 [place] [address] [place] [address] Assigned Musculoskeletal Provider 01/20/20 07/04/21 Joyce Mcduffie GC [address] [place] [address] Assigned OBGYN Provider 01/25/21 04/04/21 Christiane Love APRN PHARMACY CONSULTANT [address] [address] [address] Assigned PCP 02/08/21 03/14/21 Yara Fregoso OD [address] [facility] [place] [address] Assigned Surgical Provider 03/15/21 09/10/22 Christiane Love APRN PHARMACY CONSULTANT [address] [place] [place] [place] [address] Assigned PCP 05/31/21 Christiane Love APRN PHARMACY CONSULTANT [address] [place] [place] [address] Assigned PCP 03/15/21 05/30/21 Yvette Graves MD [address] [place] [address] Physician Physical Medicine and Rehabilitation 07/22/22 documented as of this encounter
--- OUTSIDE RECORDS SUMMARY | 2024-03-09 07:15 | XMS_ITS | Encounter Summary ---
Author Organization [place] Address [address] [place] [address]. [place] [address] Care Team Providers Care Jig Inspector Name Role Phone Christiane Love APRN BASS VIOL REPAIRER Primary Care Provider + Christiane Love APRN BASS VIOL REPAIRER Unavailable [phone] Errol Salinas MD Unavailable Joyce Mcduffie GC Unavailable [phone] Christiane Love APRN BASS VIOL REPAIRER Unavailable [phone] Yara Fregoso OD Unavailable Christiane Love APRN BASS VIOL REPAIRER Unavailable [phone] Christiane Love APRN BASS VIOL REPAIRER Unavailable [phone] Yvette Graves MD Unavailable [phone] Encounter Details Date Type Department Care Team (Late st Contact Info) Description 09/16/2020 [facility] [place] [facility] [address] [place] [address] Joyce Mcduffie, GC [address] [place] [address] Social History Tobacco Use Types Packs/Day Years Used Date Smoking Tobacco: Never Smokeless Tobacco: Never Alcohol Use Standard Drinks/Week Comments No 0 (1 standard drink = 0.6 oz pur e alcohol) PHQ-2 Answer Date Recorded PHQ-2 Score 2 02/27/2020 Comments No Sex and Gender Information Value Date Recorded Sex Assigned at Not on file Legal Sex Female 4:16 AM VICE PRESIDENT OF PRODUCT MARKETING Gender Identity Not on file Sexual Orientation Not on file documented as of this encounter Plan of Treatment Not on file documented as of this encounter Visit Diagnoses Not on filedocumented in this encounter Additional Health Concerns Assessment Noted Time PHQ-9 Depression Total Score: 11 020 11:12 AM CDT documented as of this encounter Care Teams Jig Inspector Relationship Specialty Start Date End Date Christiane Love APRN BASS VIOL REPAIRER PCP - General Nurse Practitioner - Family 07/12/16 Christiane Love APRN BASS VIOL REPAIRER [address] [address] [address] Assigned PCP 12/09/19 02/07/21 [place] [address] [place] [address] Assigned Musculoskeletal Provider 01/20/20 07/04/21 Joyce Mcduffie GC [address] [place] [address] Assigned OBGYN Provider 01/25/21 04/04/21 Christiane Love APRN BASS VIOL REPAIRER [address] [address] [address] Assigned PCP 02/08/21 03/14/21 Yara Fregoso OD [address] [facility] [place] [address] Assigned Surgical Provider 03/15/21 09/10/22 Christiane Love APRN BASS VIOL REPAIRER [address] [place] [place] [address] Assigned PCP 05/31/21 Christiane Love APRN BASS VIOL REPAIRER [address] [place] [place] [address] Assigned PCP 03/15/21 05/30/21 Yvette Graves MD [address] [place] [address] Physician Physical Medicine and Rehabilitation 07/22/22 documented as of this encounter
--- OUTSIDE RECORDS SUMMARY | 2024-03-09 07:15 | XMS_ITS | Encounter Summary ---
Author Organization [place] Address [address] [place] [address] Care Team Providers Care Pulpwood Dealer Name Role Phone Christiane Love APRN WOOD HACKER Primary Care Provider + Christiane Love APRN WOOD HACKER Unavailable [phone] Errol Salinas MD Unavailable Joyce Mcduffie GC Unavailable [phone] Christiane Love APRN WOOD HACKER Unavailable [phone] Yara Fregoso OD Unavailable Christiane Love APRN WOOD HACKER Unavailable [phone] Christiane Love APRN WOOD HACKER Unavailable [phone] Yvette Graves MD Unavailable [phone] Encounter Details Date Type Department Care Team (Late st Contact Info) Description 01/25/2021 Documentation Only INTERFACED REPORT Unknown, Provider Social History Tobacco Use Types Packs/Day Years Used Date Smoking Tobacco: Never Smokeless Tobacco: Never Alcohol Use Standard Drinks/Week Comments No 0 (1 standard drink = 0.6 oz pur e alcohol) PHQ-2 Answer Date Recorded PHQ-2 Score 2 02/27/2020 Comments No Sex and Gender Information Value Date Recorded Sex Assigned at Not on file Legal Sex Female 4:16 AM DIESEL ENGINE OPERATOR Gender Identity Not on file Sexual Orientation Not on file COVID-19 Exposure Response Date Recorded In the last month, have you been in contact with someone who was confirmed or suspected to have Coronavirus / COVID-19? No / Unsure 01/24/2021 7:46 PM DIESEL ENGINE OPERATOR documented as of this encounter Plan of Treatment Not on file documented as of this encounter Visit Diagnoses Not on filedocumented in this encounter Additional Health Concerns Assessment Noted Time PHQ-9 Depression Total Score: 11 020 11:12 AM CDT documented as of this encounter Care Teams Pulpwood Dealer Relationship Specialty Start Date End Date Christiane Love APRN WOOD HACKER PCP - General Nurse Practitioner - Family 07/12/16 Christiane Love APRN WOOD HACKER [address] [address] [address] Assigned PCP 12/09/19 02/07/21 [place] [address] [place] [address] Assigned Musculoskeletal Provider 01/20/20 07/04/21 Joyce Mcduffie GC [address] [place] [address] Assigned OBGYN Provider 01/25/21 04/04/21 Christiane Love APRN WOOD HACKER [address] [address] [address] Assigned PCP 02/08/21 03/14/21 Yara Fregoso OD [address] [facility] ROS[place] ARIAS [address] Assigned Surgical Provider 03/15/21 09/10/22 Christiane Love APRN WOOD HACKER [address] [address] [place] [place] [address] Assigned PCP 05/31/21 Christiane Love APRN WOOD HACKER [address] [place] [address] [place] [address] Assigned PCP 03/15/21 05/30/21 Yvette Graves MD [address] [place] [address] Physician Physical Medicine and Rehabilitation 07/22/22 documented as of this encounter
--- OUTSIDE RECORDS SUMMARY | 2024-03-09 07:15 | XMS_ITS | Encounter Summary ---
Author Organization [place] Address [address] [place] [address] Care Team Providers Care Automatic Beam Warper Tender Name Role Phone Christiane Love VOUCHER EXAMINER TRAILER PARK MANAGER Primary Care Provider + Christiane Love APRN TRAILER PARK MANAGER Unavailable [phone] Christiane Love APRN TRAILER PARK MANAGER Unavailable [phone] Errol Salinas MD Unavailable Joyce Mcduffie GC Unavailable [phone] Christiane Love APRN TRAILER PARK MANAGER Unavailable [phone] Yara Fregoso OD Unavailable Christiane Love APRN TRAILER PARK MANAGER Unavailable [phone] Christiane Love APRN TRAILER PARK MANAGER Unavailable [phone] Yvette Graves MD Unavailable [phone] Encounter Details Date Type Department Care Team (Late st Contact Info) Description 11/20/2019 [facility] [address] [place] [address] Roslyn Multani, MATHEMATICS INSTRUCTOR Social History Tobacco Use Types Packs/Day Years Used Date Smoking Tobacco: Never Smokeless Tobacco: Never Alcohol Use Standard Drinks/Week Comments No 0 (1 standard drink = 0.6 oz pur e alcohol) PHQ-2 Answer Date Recorded PHQ-2 Score 0 03/15/2018 Comments No Sex and Gender Information Value Date Recorded Sex Assigned at Not on file Legal Sex Female 4:16 AM KEYCASE ASSEMBLER Gender Identity Not on file Sexual Orientation Not on file documented as of this encounter Plan of Treatment Not on file documented as of this encounter Visit Diagnoses Not on filedocumented in this encounter Additional Health Concerns Infection Onset Date Last Indicated Resolved Time Rule Out COVID-19 11/27/2019 11/27/2019 11/27/2019 11:32 PM CDT Rule Out COVID-19 12/03/2019 12/03/2019 12/04/2019 6:31 PM CDT Assessment Noted Time PHQ-9 Depression Total Score: 4 06/14/19 19 7:38 AM CDT documented as of this encounter Care Teams Automatic Beam Warper Tender Relationship Specialty Start Date End Date Christiane Love APRN TRAILER PARK MANAGER PCP - General Nurse Practitioner - Family 07/12/16 Christiane Love APRN TRAILER PARK MANAGER [address] [place] [address] Assigned PCP 12/09/19 02/07/21 Christiane Love APRN TRAILER PARK MANAGER [address] [place] [address] Assigned PCP 04/19/16 12/08/19 [place] [address] [place], [place] [address] Assigned Musculoskeletal Provider 01/20/20 07/04/21 Joyce Mcduffie GC [address] [place] [address] Assigned OBGYN Provider 01/25/21 04/04/21 Christiane Loev APRN TRAILER PARK MANAGER [address] [place] [address] Assigned PCP 02/08/21 03/14/21 Yara Fregoso OD [address] [facility] [place] [address] Assigned Surgical Provider 03/15/21 09/10/22 Christiane Love APRN TRAILER PARK MANAGER [address] [place] [address] Assigned PCP 05/31/21 Christiane Love APRN TRAILER PARK MANAGER [address] [address] [place] [address] Assigned PCP 03/15/21 05/30/21 Yvette Graves MD [address] [place] [address] Physician Physical Medicine and Rehabilitation 07/22/22 documented as of this encounter
--- OUTSIDE RECORDS SUMMARY | 2024-03-09 07:15 | XMS_ITS | Encounter Summary ---
Author Organization [place] Address [facility] [place] [address] Care Team Providers Care Cardiopulmonary Technician And Eeg Tech Name Role Phone Christiane Love APRN STUCCO WORKER Primary Care Provider + Christiane Love APRN STUCCO WORKER Unavailable Errol Salinas MD Unavailable Joyce Mcduffie GC Unavailable [phone] Christiane Love APRN STUCCO WORKER Unavailable [phone] Yara Fregoso OD Unavailable Christiane Love APRN STUCCO WORKER Unavailable Christiane Love APRN STUCCO WORKER Unavailable Yvette Graves MD Unavailable [phone] Reason for Visit * Reason Onset Date Comments Covid Concern 02/05/2021 Covid Booster Va ccine Encounter Details Date Type Department Care Team (Late st Contact Info) Description 02/05/2021 [facility] [address] [place] [address] Christiane Love APRN STUCCO WORKER [address] [place] [address] Covid Concern (Covid Booster Vaccine) Social History Tobacco Use Types Packs/Day Years [...] on file Legal Sex Female 4:16 AM YOUTH MANAGER Gender Identity Not on file Sexual Orientation Not on file COVID-19 Exposure Response Date Recorded In the last month, have you been in contact with someone who was confirmed or suspected to have Coronavirus / COVID-19? No / Unsure 02/06/2021 11:21 AM YOUTH MANAGER documented as of this encounter Plan of Treatment Not on file documented as of this encounter Visit Diagnoses Not on filedocumented in this encounter Additional Health Concerns Assessment Noted Time PHQ-9 Depression Total Score: 15 021 7:30 AM YOUTH MANAGER documented as of this encounter Care Teams Cardiopulmonary Technician And Eeg Tech Relationship Specialty Start Date End Date Christiane Love APRN STUCCO WORKER PCP - General Nurse Practitioner - Family 07/12/16 Christiane Love APRN STUCCO WORKER [address] [place] [address] Assigned PCP 12/09/19 02/07/21 [place] [address] [place], [place] [address] Assigned Musculoskeletal Provider 01/20/20 07/04/21 Joyce Mcduffie GC [address] [place], [place] [address] Assigned OBGYN Provider 01/25/21 04/04/21 Christiane Love APRN STUCCO WORKER [address] [place] [address] Assigned PCP 02/08/21 03/14/21 Yara Fregoso OD [address] [facility] [place] [address] Assigned Surgical Provider 03/15/21 09/10/22 Christiane Love APRN STUCCO WORKER [address] [address] [place] [address] Assigned PCP 05/31/21 Christiane Love APRN STUCCO WORKER [address] [address] [place] [address] Assigned PCP 03/15/21 05/30/21 Yvette Graves MD [address] [place] [address] Physician Physical Medicine and Rehabilitation 07/22/22 documented as of this encounter
--- OUTSIDE RECORDS SUMMARY | 2024-03-09 07:16 | XMS_ITS | Encounter Summary ---
Author Organization [place] Address [facility] [place] [address] Care Team Providers Care Grading Clerk Name Role Phone Christiane Love CLIENT SERVICE REPRESENTATIVE ANALYSIS DIRECTOR Primary Care Provider + Christiane Love APRN ANALYSIS DIRECTOR Unavailable [phone] Christiane Love CLIENT SERVICE REPRESENTATIVE ANALYSIS DIRECTOR Unavailable [phone] Errol Salinas MD Unavailable Joyce Mcduffie GC Unavailable [phone] Christiane Love APRN ANALYSIS DIRECTOR Unavailable [phone] Yara Fregoso OD Unavailable Christiane Love CLIENT SERVICE REPRESENTATIVE ANALYSIS DIRECTOR Unavailable [phone] Christiane Love CLIENT SERVICE REPRESENTATIVE ANALYSIS DIRECTOR Unavailable [phone] Yvette Graves MD Unavailable [phone] Encounter Details Date Type Department Care Team (Late st Contact Info) Description 04/23/2019 [facility] [address] [facility], [address] [place] [address] Heidi Galaviz Social History Tobacco Use Types Packs/Day Years Used Date Smoking Tobacco: Never Smokeless Tobacco: Never Alcohol Use Standard Drinks/Week Comments No 0 (1 standard drink = 0.6 oz pur e alcohol) PHQ-2 Answer Date Recorded PHQ-2 Score 0 03/15/2018 Comments No Sex and Gender Information Value Date Recorded Sex Assigned at Not on file Legal Sex Female 4:16 AM DOCK BUILDER Gender Identity Not on file Sexual Orientation Not on file documented as of this encounter Plan of Treatment Not on file documented as of this encounter Visit Diagnoses Not on filedocumented in this encounter Additional Health Concerns Infection Onset Date Last Indicated Resolved Time Rule Out COVID-19 09/27/2019 09/27/2019 09/28/2019 10:10 PM CDT Rule Out COVID-19 11/27/2019 11/27/2019 11/27/2019 11:32 PM CDT Rule Out COVID-19 12/03/2019 12/03/2019 12/04/2019 6:31 PM CDT Assessment Noted Time PHQ-9 Depression Total Score: 4 06/14/19 19 7:38 AM CDT documented as of this encounter Care Teams Grading Clerk Relationship Specialty Start Date End Date Christiane Love APRN ANALYSIS DIRECTOR PCP - General Nurse Practitioner - Family 07/12/16 Christiane Love APRN ANALYSIS DIRECTOR [address] [place] [address] Assigned PCP 12/09/19 02/07/21 Christiane Love APRN ANALYSIS DIRECTOR [address] [place] [address] Assigned PCP 04/19/16 12/08/19 [place] [address] [place] [address] Assigned Musculoskeletal Provider 01/20/20 07/04/21 Joyce Mcduffie GC [address]50 [place] [address] Assigned OBGYN Provider 01/25/21 04/04/21 Christiane Love APRN ANALYSIS DIRECTOR [address] [place] [address] Assigned PCP 02/08/21 03/14/21 Yara Fregoso OD [address] [facility] [place] [address] Assigned Surgical Provider 03/15/21 09/10/22 Christiane Love APRN ANALYSIS DIRECTOR [address] [place] [address] Assigned PCP 05/31/21 Christiane Love APRN ANALYSIS DIRECTOR [address] [place] [address] Assigned PCP 03/15/21 05/30/21 Yvette Graves MD [address] [place] [address] Physician Physical Medicine and Rehabilitation 07/22/22 documented as of this encounter
--- OUTSIDE RECORDS SUMMARY | 2024-03-09 07:16 | XMS_ITS | Encounter Summary ---
Author Organization [place] Address [address] [place] [address]. [place] [address] Care Team Providers Care Tobacco Dipper Name Role Phone Christiane Love APRN FAMILY AND DIVORCE LEGAL ASSISTANT Primary Care Provider + Christiane Love APRN FAMILY AND DIVORCE LEGAL ASSISTANT Unavailable [phone] Christiane Love APRN FAMILY AND DIVORCE LEGAL ASSISTANT Unavailable [phone] Errol Salinas MD Unavailable Joyce Mcduffie GC Unavailable [phone] Christiane Love APRN FAMILY AND DIVORCE LEGAL ASSISTANT Unavailable [phone] Yara Fregoso OD Unavailable Christiane Love APRN FAMILY AND DIVORCE LEGAL ASSISTANT Unavailable [phone] Christiane Love APRN FAMILY AND DIVORCE LEGAL ASSISTANT Unavailable [phone] Yvette Graves MD Unavailable [phone] Reason for Visit * Reason Onset Date Comments Medication Refill 04/20/2019 Zoloft 100mg Encounter Details Date Type Department Care Team (Late st Contact Info) Description 04/18/2019 [facility] [address] [facility], [address] [place] [address] Christiane Love APRN FAMILY AND DIVORCE LEGAL ASSISTANT [address] [place] [address] Medication Refill (Zoloft 100mg) Social History Tobacco Use Types Packs/Day Years Used Date Smoking Tobacco: Never Smokeless Tobacco: Never Alcohol Use Standard Drinks/Week Comments No 0 (1 standard drink = 0.6 oz pur e alcohol) PHQ-2 Answer Date Recorded PHQ-2 Score 0 03/15/2018 Comments No Sex and Gender Information Value Date Recorded Sex Assigned at Not on file Legal Sex Female 4:16 AM GENERAL LEDGER ACCOUNTANT Gender Identity Not on file Sexual Orientation Not on file documented as of this encounter Miscellaneous Notes * Telephone Encounter - Heidi Galaviz - 04/23/2019 3:54 PM CST mychart message sent patient needs appointment ,Heidi Galaviz/ Pull Out Operator RAL LEDGER ACCOUNTANT * Telephone Encounter - Mary Sequeira RN - 04/23/2019 3:49 PM CST Last Written Prescription Date: 03.26.2019 Last Fill Quantity: 30, # refills: 0 Last office visit: 06/19/2018 with prescribing provider: Ivan Future Office Visit: Routing refill request to provider for review/approval because: Alycia given x1 and patient did not follow up, please advise Patient needs to be seen because: Overdue for recheck on depression, SCHEDULE APPT PHQ-9 SCORE 05/09/2017 02/20/2018 06/13/2018 PHQ-9 Total Score MyChart - 11 (Moderate depression) - PHQ-9 Total Score 4 11 4 THOMAS-7 SCORE 12/13/2017 02/20/2018 06/13/2018 Total Score 18 (severe anxiety) 9 (mild anxiety) - Total Score 18 9 5 RAL LEDGER ACCOUNTANT * Telephone Encounter - Samina Alatorre RN - 04/20/2019 11:23 AM CST Zoloft 100mg Last Written Prescription Date: 03/26/2019 Last Fill Quantity: 30, # refills: 0 Last office visit: 06/19/2018 with prescribing provider: Future Office Visit: PHQ-9 SCORE 05/09/2017 02/20/2018 06/13/2018 PHQ-9 Total Score MyChart - 11 (Moderate depression) - PHQ-9 Total Score 4 11 4 THOMAS-7 SCORE 12/13/2017 02/20/2018 06/13/2018 Total Score 18 (severe anxiety) 9 (mild anxiety) - Total Score 18 9 5 Patient is due for her 6 month medication check and update PHQ-9 and THOMAS-7. Left a detailed message on patients voice mail to call the clinic back and schedule an appointment. Samina Alatorre RN RAL LEDGER ACCOUNTANT documented in this encounter Plan of Treatment Not on file documented as of this encounter Visit Diagnoses Diagnosis Adjustment disorder with anxious mood Adjustment disorder with anxiety documented in this encounter Additional Health Concerns Infection Onset Date Last Indicated Resolved Time Rule Out COVID-19 09/27/2019 09/27/2019 09/28/2019 10:10 PM CDT Rule Out COVID-19 11/27/2019 11/27/2019 11/27/2019 11:32 PM CDT Rule Out COVID-19 12/03/2019 12/03/2019 12/04/2019 6:31 PM CDT Assessment Noted Time PHQ-9 Depression Total Score: 4 06/14/19 19 7:38 AM CDT documented as of this encounter Care Teams Tobacco Dipper Relationship Specialty Start Date End Date Christiane Love APRN FAMILY AND DIVORCE LEGAL ASSISTANT PCP - General Nurse Practitioner - Family 07/12/16 Christiane Love APRN FAMILY AND DIVORCE LEGAL ASSISTANT [address] [place] [address] Assigned PCP 12/09/19 02/07/21 Christiane Love APRN FAMILY AND DIVORCE LEGAL ASSISTANT [address] [place] [address] Assigned PCP 04/19/16 12/08/19 [place] [address] [place] [address] Assigned Musculoskeletal Provider 01/20/20 07/04/21 Joyce Mcduffie GC [address] [place] [address] Assigned OBGYN Provider 01/25/21 04/04/21 Christiane Love APRN FAMILY AND DIVORCE LEGAL ASSISTANT [address] [facility] [place] [address] Assigned PCP 02/08/21 03/14/21 Yara Fregoso OD [address] [facility] [place] [address] Assigned Surgical Provider 03/15/21 09/10/22 Christiane Love APRN FAMILY AND DIVORCE LEGAL ASSISTANT [address] [facility] [place] [address] Assigned PCP 05/31/21 Christiane Love APRN FAMILY AND DIVORCE LEGAL ASSISTANT [address] [place] [address] Assigned PCP 03/15/21 05/30/21 Yvette Graves MD [address]09 [place] [address] Physician Physical Medicine and Rehabilitation 07/22/22 documented as of this encounter
--- OUTSIDE RECORDS SUMMARY | 2024-03-09 07:16 | XMS_ITS | Encounter Summary ---
Author Organization [place] Address [facility] [place] [place] [address] Care Team Providers Care Biometrics Technician Name Role Phone Christiane Love AUDIO VISUAL AIDS DIRECTOR TRACK REPAIR PERSON Primary Care Provider + Christiane Love APRN TRACK REPAIR PERSON Unavailable [phone] Christiane Love APRN TRACK REPAIR PERSON Unavailable [phone] Errol Salinas MD Unavailable Joyce Mcduffie GC Unavailable [phone] Christiane Love APRN TRACK REPAIR PERSON Unavailable [phone] Yara Fregoso OD Unavailable Christiane Love APRN TRACK REPAIR PERSON Unavailable [phone] Christiane Love APRN TRACK REPAIR PERSON Unavailable [phone] Yvette Graves MD Unavailable [phone] Encounter Details Date Type Department Care Team (Late st Contact Info) Description 08/27/2019 [facility] [address] [address] Heidi Galaviz Social History Tobacco Use Types Packs/Day Years Used Date Smoking Tobacco: Never Smokeless Tobacco: Never Alcohol Use Standard Drinks/Week Comments No 0 (1 standard drink = 0.6 oz pur e alcohol) PHQ-2 Answer Date Recorded PHQ-2 Score 0 03/15/2018 Comments No Sex and Gender Information Value Date Recorded Sex Assigned at Not on file Legal Sex Female 4:16 AM FUR DRUMMER Gender Identity Not on file Sexual Orientation [...] documented as of this encounter Care Teams Biometrics Technician Relationship Specialty Start Date End Date Christiane Love APRN TRACK REPAIR PERSON PCP - General Nurse Practitioner - Family 07/12/16 Christiane Love APRN TRACK REPAIR PERSON [address] [place] [address] Assigned PCP 12/09/19 02/07/21 Christiane Love APRN TRACK REPAIR PERSON [address] [place] [address] Assigned PCP 04/19/16 12/08/19 [place] [address] [place] [address] Assigned Musculoskeletal Provider 01/20/20 07/04/21 Joyce Mcduffie GC [address] [place], [place] [address] Assigned OBGYN Provider 01/25/21 04/04/21 Christiane Love APRN TRACK REPAIR PERSON [address] [place] [address] Assigned PCP 02/08/21 03/14/21 Yara Fregoso OD [address] [facility] [place] [address] Assigned Surgical Provider 03/15/21 09/10/22 Christiane Love APRN TRACK REPAIR PERSON [address] [place] [address] Assigned PCP 05/31/21 Christiane Love APRN TRACK REPAIR PERSON [address] [place] [address] Assigned PCP 03/15/21 05/30/21 Yvette Graves MD [address]09 [place] [address] Physician Physical Medicine and Rehabilitation 07/22/22 documented as of this encounter
--- OUTSIDE RECORDS SUMMARY | 2024-03-09 07:16 | XMS_ITS | Encounter Summary ---
Author Organization [place] Address [address] [place] [address] Care Team Providers Care Agricultural Engineering Technician Name Role Phone Christiane Love FLOOR INSPECTOR POUNCER MACHINE Primary Care Provider + Christiane Love APRN POUNCER MACHINE Unavailable [phone] Christiane Love APRN POUNCER MACHINE Unavailable [phone] Errol Salinas MD Unavailable Joyce Mcudffie GC Unavailable [phone] Christiane Love APRN POUNCER MACHINE Unavailable [phone] Yara Fregoso OD Unavailable Christiane Love APRN POUNCER MACHINE Unavailable [phone] Christiane Love APRN POUNCER MACHINE Unavailable [phone] Yvette Graves MD Unavailable [phone] Encounter Details Date Type Department Care Team (Late st Contact Info) Description 11/15/2019 [facility] [address] [address] Abilio Yee, RN Social History Tobacco Use Types Packs/Day Years Used Date Smoking Tobacco: Never Smokeless Tobacco: Never Alcohol Use Standard Drinks/Week Comments No 0 (1 standard drink = 0.6 oz pur e alcohol) PHQ-2 Answer Date Recorded PHQ-2 Score 0 03/15/2018 Comments No Sex and Gender Information Value Date Recorded Sex Assigned at Not on file Legal Sex Female 4:16 AM DIGITAL STRATEGY MANAGER Gender Identity Not on file Sexual [...] documented as of this encounter Care Teams Agricultural Engineering Technician Relationship Specialty Start Date End Date Christiane Love APRN POUNCER MACHINE PCP - General Nurse Practitioner - Family 07/12/16 Christiane Love APRN POUNCER MACHINE [address] [place], [place] [address] Assigned PCP 12/09/19 02/07/21 Christiane Love APRN POUNCER MACHINE [address] [place] [place], [place] [address] Assigned PCP 04/19/16 12/08/19 [place] [address] [place], [place] [address] Assigned Musculoskeletal Provider 01/20/20 07/04/21 Joyce Mcduffie GC [address] [place] [address] Assigned OBGYN Provider 01/25/21 04/04/21 Christiane Love APRN POUNCER MACHINE [address] [place] [address] Assigned PCP 02/08/21 03/14/21 Yara Fregoso OD [address] [facility] [place] [address] Assigned Surgical Provider 03/15/21 09/10/22 Christiane Love APRN POUNCER MACHINE [address] [place] [address] Assigned PCP 05/31/21 Christiane Love APRN POUNCER MACHINE [address] [place] [address] Assigned PCP 03/15/21 05/30/21 Yvette Graves MD 909 [place] [address] Physician Physical Medicine and Rehabilitation 07/22/22 documented as of this encounter
--- OUTSIDE RECORDS SUMMARY | 2024-03-09 07:17 | XMS_ITS | Encounter Summary ---
Author Organization [place] Address [facility] [place] [address] Care Team Providers Care Manufacturing Controller Name Role Phone Christiane Love MAIL SUPERINTENDENT MANAGER WASTEWATER Primary Care Provider + Christiane Love MAIL SUPERINTENDENT MANAGER WASTEWATER Unavailable [phone] Christiane Love MAIL SUPERINTENDENT MANAGER WASTEWATER Unavailable [phone] Christiane Love APRN MANAGER WASTEWATER Unavailable [phone] Errol Salinas MD Unavailable Joyce Mcduffie GC Unavailable [phone] Christiane Love APRN MANAGER WASTEWATER Unavailable [phone] Yara Fregoso OD Unavailable Christiane Love MAIL SUPERINTENDENT MANAGER WASTEWATER Unavailable [phone] Christiane Love MAIL SUPERINTENDENT MANAGER WASTEWATER Unavailable [phone] Yvette Graves MD Unavailable [phone] Reason for Visit * Reason Onset Date Comments Symptoms 12/13/2017 Stress and Anxie ty causing Encounter Details Date Type Department Care Team (Late st Contact Info) Description 12/13/2017 [facility] [address] [facility], [address] [place] [address] Christiane Love APRN CNP [address] [place] [address] Symptoms (Stress and Anxiety causing) Social History Tobacco Use Types Packs/Day Years Used Date Smoking Tobacco: Never Smokeless Tobacco: Never Alcohol Use Standard Drinks/Week Comments No 0 (1 standard drink = 0.6 oz pur e alcohol) Comments No Sex and Gender Information Value Date Recorded Sex Assigned at Not on file Legal Sex Female 4:16 AM CHIEF CONTRACT OFFICER Gender Identity Not on file Sexual Orientation Not on file documented as of this encounter Miscellaneous Notes * Telephone Encounter - Christiane Love APRN CNP - 12/13/2017 2:32 PM CDT Please offer evisit; pt will have to initiate. I have never prescribed her zoloft. Christiane Love MANAGER WASTEWATER documented in this encounter Plan of Treatment [...] Noted Time PHQ-9 Depression Total Score: 4 05/11/19 18 8:05 AM CHIEF CONTRACT OFFICER documented as of this encounter Care Teams Manufacturing Controller Relationship Specialty Start Date End Date Christiane Love APRN CNP PCP - General Nurse Practitioner - Family 07/12/16 Christiane Love APRN CNP [address] [place] [address] PCP - Assigned PCP 04/19/16 05/09/18 Christiane Love APRN MANAGER WASTEWATER [address] [place] [address] Assigned PCP 12/09/19 02/07/21 Christiane Love APRN MANAGER WASTEWATER [address] [place] [address] Assigned PCP 04/19/16 12/08/19 [place] [address] [place] [address] Assigned Musculoskeletal Provider 01/20/20 07/04/21 Joyce Mcduffie [address] [place] [address] Assigned OBGYN Provider 01/25/21 04/04/21 Christiane Love APRN MANAGER WASTEWATER [address] [place] [address] Assigned PCP 02/08/21 03/14/21 Yara Fregoso OD [address] [facility] [place] [place] [address] Assigned Surgical Provider 03/15/21 09/10/22 Christiane Love APRN MANAGER WASTEWATER [address] [place] [address] Assigned PCP 05/31/21 Christiane Love APRN MANAGER WASTEWATER [address] [place] [address] Assigned PCP 03/15/21 05/30/21 Yvette Graves MD 9 [place] [address] Physician Physical Medicine and Rehabilitation 07/22/22 documented as of this encounter
--- OUTSIDE RECORDS SUMMARY | 2024-03-09 07:17 | XMS_ITS | Encounter Summary ---
Author Organization [place] Address [facility] [place] [address] Care Team Providers Care Inspector Raw Quartz Name Role Phone Christiane Love APRN MECHANOTHERAPIST Primary Care Provider + Christiane Love APRN MECHANOTHERAPIST Unavailable [phone] Christiane Love APRN MECHANOTHERAPIST Unavailable [phone] Errol Salinas MD Unavailable Joyce Mcduffie GC Unavailable [phone] Christiane Love APRN MECHANOTHERAPIST Unavailable [phone] Yara Fregoso OD Unavailable Christiane Love APRN MECHANOTHERAPIST Unavailable [phone] Christiane Love SPRAY PAINTING MACHINE OPERATOR MECHANOTHERAPIST Unavailable [phone] Yvette Graves MD Unavailable [phone] Reason for Visit * Reason Onset Date Comments Medication Refill 01/15/2019 lisinopril (GA INIVIL/ZESTRIL) 10 MG tablet Encounter Details Date Type Department Care Team (Late st Contact Info) Description 01/14/[address], [address] [place] [address] Christiane Love APRN MECHANOTHERAPIST [address] [place] [address] Medication Refill (lisinopril (PRINIVIL/ZESTRIL) 10 MG tablet) Social History Tobacco Use Types Packs/Day Years Used Date Smoking Tobacco: Never Smokeless Tobacco: Never Alcohol Use Standard Drinks/Week Comments No 0 (1 standard drink = 0.6 oz pur e alcohol) PHQ-2 Answer Date Recorded PHQ-2 Score 0 03/15/2018 Comments No Sex and Gender Information Value Date Recorded Sex Assigned at Not on file Legal Sex Female 4:16 AM DAIRY EQUIPMENT INSTALLER Gender Identity Not on file Sexual Orientation Not on file documented as of this encounter Miscellaneous Notes * Telephone Encounter - Samina Alatorre RN - 01/16/2019 8:12 AM CST Prescription approved per [facility] Refill Protocol. Samina Alatorre RN Y EQUIPMENT INSTALLER * Telephone Encounter - Lexus Bingham - 01/15/2019 8:44 AM CST Images from the original note were not included. Requested Prescriptions Pending Prescriptions Disp Refills ??? lisinopril (PRINIVIL/ZESTRIL) 10 MG tablet [Pharmacy Med Name: LISINOPRIL 10 MG TABLET] 30 tablet 5 Sig: TAKE 1 TABLET BY MOUTH EVERY DAY Last Written Prescription Date: 06/19/18 Last Fill Quantity: 90, # refills: 1 Last Office Visit: 06/19/2018 Strong Return in about 6 months (around 12/19/2018) for depression, hypertension . Future Office Visit: LOLY Inhibitors (Including Combos) Protocol Passed - 01/14/2019 12:47 AM Passed - Blood pressure under 140/90 in past 12 months BP Readings from Last 3 Encounters: 06/19/18 110/68 05/27/18 118/78 01/28/18 102/72 Passed - Recent (12 mo) or future (30 days) visit within the authorizing provider's specialty Patient has had an office visit with the authorizing provider or a provider within the authorizing providers department within the previous 12 mos or has a future within next 30 days. See Patient Info tab in inbasket, or Choose Columns in Meds & Orders section of the refill encounter. Passed - Medication is active on med list Passed - Patient is age 18 or older Passed - No active on record Passed - Normal serum creatinine on file in past 12 months Recent Labs Lab Test 06/19/18 1605 CR 0.92 Passed - Normal serum potassium on file in past 12 months Recent Labs Lab Test 06/19/18 1605 POTASSIUM 4.1 Passed - No positive test within past 12 months Y EQUIPMENT INSTALLER documented in this encounter Plan of Treatment Not on file documented as of this encounter Visit Diagnoses Diagnosis Benign essential hypertension Essential hypertension, benign documented in this encounter Additional Health Concerns Infection Onset Date Last Indicated Resolved Time Rule Out COVID-19 09/27/2019 09/27/2019 09/28/2019 10:10 PM CDT Rule Out COVID-19 11/27/2019 11/27/2019 11/27/2019 11:32 PM CDT Rule Out COVID-19 12/03/2019 12/03/2019 12/04/2019 6:31 PM CDT Assessment Noted Time PHQ-9 Depression Total Score: 4 06/14/19 19 7:38 AM CDT documented as of this encounter Care Teams Inspector Raw Quartz Relationship Specialty Start Date End Date Christiane Love APRN MECHANOTHERAPIST PCP - General Nurse Practitioner - Family 07/12/16 Christiane Love APRN MECHANOTHERAPIST [address] [address] Assigned PCP 12/09/19 02/07/21 Christiane Love APRN MECHANOTHERAPIST [address] [address] [address] Assigned PCP 04/19/16 12/08/19 [place] [address] [address] [address] Assigned Musculoskeletal Provider 01/20/20 07/04/21 Joyce Mcduffie GC [address] [place] [address] Assigned OBGYN Provider 01/25/21 04/04/21 Christiane Love APRN MECHANOTHERAPIST [address] [facility] [place] [address] Assigned PCP 02/08/21 03/14/21 Yara Fregoso OD [address] [facility] [address] Assigned Surgical Provider 03/15/21 09/10/22 Christiane Love APRN MECHANOTHERAPIST [address] [place] [address] Assigned PCP 05/31/21 Christiane Love APRN MECHANOTHERAPIST [address] [facility] [place] [address] Assigned PCP 03/15/21 05/30/21 Yvette Graves MD [address] [place], [place] [address] Physician Physical Medicine and Rehabilitation 07/22/22 documented as of this encounter
--- OUTSIDE RECORDS SUMMARY | 2024-03-09 07:17 | XMS_ITS | Encounter Summary ---
Author Organization [place] Address [facility] [place] [address] Care Team Providers Care Licensed Dispensing Optician Name Role Phone Christiane oLve SENIOR STRUCTURAL ENGINEER TONGUE AND GROOVE MACHINE SETTER Primary Care Provider + Christiane Love APRN TONGUE AND GROOVE MACHINE SETTER Unavailable [phone] Christiane Love SENIOR STRUCTURAL ENGINEER TONGUE AND GROOVE MACHINE SETTER Unavailable [phone] Errol Salinas MD Unavailable Joyce Mcduffie GC Unavailable [phone] Christiane Love APRN TONGUE AND GROOVE MACHINE SETTER Unavailable [phone] Yara Fregoso OD Unavailable Christiane Love SENIOR STRUCTURAL ENGINEER TONGUE AND GROOVE MACHINE SETTER Unavailable [phone] Christiane Love SENIOR STRUCTURAL ENGINEER TONGUE AND GROOVE MACHINE SETTER Unavailable [phone] Yvette Graves MD Unavailable [phone] Encounter Details Date Type Department Care Team (Late st Contact Info) Description 03/26/2019 [facility] Medical Advice [facility] [address] [facility], [address] [place] [address] Heidi Galaviz Social History Tobacco Use Types Packs/Day Years Used Date Smoking Tobacco: Never Smokeless Tobacco: Never Alcohol Use Standard Drinks/Week Comments No 0 (1 standard drink = 0.6 oz pur e alcohol) PHQ-2 Answer Date Recorded PHQ-2 Score 0 03/15/2018 Comments No Sex and Gender Information Value Date Recorded Sex Assigned at Not on file Legal Sex Female 4:16 AM EXECUTIVE VICE PRESIDENT AND CHIEF FINANCIAL OFFICER Gender Identity Not on file Sexual [...] documented as of this encounter Care Teams Licensed Dispensing Optician Relationship Specialty Start Date End Date Christiane Love APRN TONGUE AND GROOVE MACHINE SETTER PCP - General Nurse Practitioner - Family 07/12/16 Christiane Love APRN TONGUE AND GROOVE MACHINE SETTER [address] [place] [address] Assigned PCP 12/09/19 02/07/21 Christiane Love APRN TONGUE AND GROOVE MACHINE SETTER [address] [place] [address] Assigned PCP 04/19/16 12/08/19 [place] [address] [place] [address] Assigned Musculoskeletal Provider 01/20/20 07/04/21 Joyce Mcduffie GC [address] [place] [address] Assigned OBGYN Provider 01/25/21 04/04/21 Christiane Love APRN TONGUE AND GROOVE MACHINE SETTER [address] [address] [address] Assigned PCP 02/08/21 03/14/21 Yara Fregoso OD [address] [facility] [place] [address] Assigned Surgical Provider 03/15/21 09/10/22 Christiane Love APRN TONGUE AND GROOVE MACHINE SETTER [address] [address] [address] Assigned PCP 05/31/21 Christiane Love APRN TONGUE AND GROOVE MACHINE SETTER [address] [address] [address] Assigned PCP 03/15/21 05/30/21 Yvette Graves MD [address] [place] [address] Physician Physical Medicine and Rehabilitation 07/22/22 documented as of this encounter
--- OUTSIDE RECORDS SUMMARY | 2024-03-09 07:17 | XMS_ITS | Encounter Summary ---
Author Organization [place] Address [facility] [place] [address] Care Team Providers Care Sequins Slinger Name Role Phone Christiane Love APRN HIGH TENSION TESTER Primary Care Provider + Christiane Love APRN HIGH TENSION TESTER Unavailable [phone] Christiane Love APRN HIGH TENSION TESTER Unavailable [phone] Christiane Love APRN HIGH TENSION TESTER Unavailable [phone] Errol Salinas MD Unavailable Joyce Mcduffie GC Unavailable [phone] Christiane Love APRN HIGH TENSION TESTER Unavailable [phone] Yara Fregoso OD Unavailable [phone] Christiane Love AUDIOLOGY DIRECTOR HIGH TENSION TESTER Unavailable [phone] Christiane Love APRN HIGH TENSION TESTER Unavailable [phone] Yvette Graves MD Unavailable [phone] Reason for Visit * Reason Onset Date Comments Forms 08/10/2017 FMLA forms Encounter Details Date Type Department Care Team (Late st Contact Info) Description 08/10/2017 [facility] [address] [facility], [address] [place] [address] Christiane Love APRN [facility] [address] [place] [address] Forms (FMLA forms) Social History Tobacco Use Types Packs/Day Years Used Date Smoking Tobacco: Never Smokeless Tobacco: Never Alcohol Use Standard Drinks/Week Comments No 0 (1 standard drink = 0.6 oz pur e alcohol) Comments No Sex and Gender Information Value Date Recorded Sex Assigned at Not on file Legal Sex Female 4:16 AM AWNING HANGER HELPER Gender Identity Not on file Sexual Orientation Not on file documented as of this encounter Miscellaneous Notes * Telephone Encounter - Nicol Llanos - 08/15/2017 1:45 PM CDT 08/15/2017 Forms faxed Je * Telephone Encounter - Trip Hannon - 08/10/2017 3:57 PM CDT Reason for Call: Form, our goal is to have forms completed with 72 hours, however, some forms may require a visit or additional information. Type of letter, form or note: FMLA Who is the form from?: Patient Where did the form come from: Patient or family brought in What clinic location was the form placed at?: [facility] Where the form was placed: TC in basket What number is listed as a contact on the form?: [phone] Additional comments: Please fax to [phone] and abstract when completed. Call taken on 08/10/2017 at 3:57 PM by TRIP HANNON documented in this encounter Plan of Treatment [...] Total Score: 4 05/11/19 18 8:05 AM AWNING HANGER HELPER documented as of this encounter Care Teams Sequins Slinger Relationship Specialty Start Date End Date Christiane Love APRN CNP PCP - General Nurse Practitioner - Family 07/12/16 Christiane Love APRN HIGH TENSION TESTER [address] [address] [address] PCP - Assigned PCP 04/19/16 05/09/18 Christiane Love APRN HIGH TENSION TESTER [address] [address] [address] Assigned PCP 12/09/19 02/07/21 Christiane Love APRN HIGH TENSION TESTER [address] [address] [address] Assigned PCP 04/19/16 12/08/19 [place] [address] [place] [address] Assigned Musculoskeletal Provider 01/20/20 07/04/21 Joyce Mcduffie GC [address] [place], [place] [address] Assigned OBGYN Provider 01/25/21 04/04/21 Christiane Love APRN HIGH TENSION TESTER [address] [address] [address] Assigned PCP 02/08/21 03/14/21 Yara Fregoso OD [address] [facility] [place] [address] Assigned Surgical Provider 03/15/21 09/10/22 Christiane Love APRN HIGH TENSION TESTER [address] [address] [address] Assigned PCP 05/31/21 Christiane Love APRN HIGH TENSION TESTER [address] [address] [address] Assigned PCP 03/15/21 05/30/21 Yvette Graves MD [address] [place] [address] Physician Physical Medicine and Rehabilitation 07/22/22 documented as of this encounter
--- OUTSIDE RECORDS SUMMARY | 2024-03-09 07:17 | XMS_ITS | Encounter Summary ---
Author Organization [place] Address [facility] [place] [address] Care Team Providers Care Plate Setter Name Role Phone Christiane Love CAN CAPPER CADDY PACKER Primary Care Provider + Christiane Love APRN CADDY PACKER Unavailable [phone] Christiane Love CAN CAPPER CADDY PACKER Unavailable [phone] Christiane Love APRN CADDY PACKER Unavailable [phone] Errol Salinas MD Unavailable Joyce Mcduffie GC Unavailable [phone] Christiane Love APRN CADDY PACKER Unavailable [phone] Yara Fregoso OD Unavailable Christiane Love CAN CAPPER CADDY PACKER Unavailable [phone] Christiane Love CAN CAPPER CADDY PACKER Unavailable [phone] Yvette Graves MD Unavailable [phone] Encounter Details Date Type Department Care Team (Late st Contact Info) Description 02/20/2018 [facility] Medical Advice [facility] [address] [facility], [address] [place] [address] Mary Sequeira, RN Social History Tobacco Use Types Packs/Day Years Used Date Smoking Tobacco: Never Smokeless Tobacco: Never Alcohol Use Standard Drinks/Week Comments No 0 (1 standard drink = 0.6 oz pur e alcohol) Comments No Sex and Gender Information Value Date Recorded Sex Assigned at Not on file Legal Sex Female 4:16 AM CUSTOMER INSIGHT 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 Gender Identity Not on file Sexual Orientation [...] Noted Time PHQ-9 Depression Total Score: 11 02/21/ 018 7:04 AM CUSTOMER INSIGHT ANALYST documented as of this encounter Care Teams Plate Setter Relationship Specialty Start Date End Date Christiane Love APRN CADDY PACKER PCP - General Nurse Practitioner - Family 07/12/16 Christiane Love APRN CADDY PACKER [address] [address] [address] PCP - Assigned PCP 04/19/16 05/09/18 Christiane Love APRN CADDY PACKER [address] [address] [address] Assigned PCP 12/09/19 02/07/21 Christiane Love APRN CADDY PACKER [address] [address] [address] Assigned PCP 04/19/16 12/08/19 [place] [address] [place] [place] [address] Assigned Musculoskeletal Provider 01/20/20 07/04/21 Joyce Mcduffie GC [address] [place] [address] Assigned OBGYN Provider 01/25/21 04/04/21 Christiane Love APRN CADDY PACKER [address] [place] [address] Assigned PCP 02/08/21 03/14/21 Yara Fregoso OD [address] [facility] [place] [address] Assigned Surgical Provider 03/15/21 09/10/22 Christiane Love APRN CADDY PACKER [address] [facility] [place] [address] Assigned PCP 05/31/21 Christiane Love APRN CADDY PACKER [address] [facility] [place] [address] Assigned PCP 03/15/21 05/30/21 Yvette Graves MD [address] [place] [address] Physician Physical Medicine and Rehabilitation 07/22/22 documented as of this encounter
--- OUTSIDE RECORDS SUMMARY | 2024-03-09 07:18 | XMS_ITS | Encounter Summary ---
Author Organization [place] Address [address] [place] [address] Care Team Providers Care Environmental Health Specialist Name Role Phone Keya Perez PA-C Primary Care Provid er Christiane Love MOLECULAR GENETIC PATHOLOGIST HYDROPULPER OPERATOR Primary Care Provider + Christiane Love MOLECULAR GENETIC PATHOLOGIST HYDROPULPER OPERATOR Unavailable [phone] Christiane Love MOLECULAR GENETIC PATHOLOGIST HYDROPULPER OPERATOR Unavailable [phone] Christiane Love MOLECULAR GENETIC PATHOLOGIST HYDROPULPER OPERATOR Unavailable [phone] Errol Salinas MD Unavailable Joyce Mcduffie GC Unavailable [phone] Christiane Love APRN HYDROPULPER OPERATOR Unavailable [phone] Yara Fregoso OD Unavailable Christiane Love APRN HYDROPULPER OPERATOR Unavailable [phone] Christiane Love APRN HYDROPULPER OPERATOR Unavailable [phone] Yvette Graves MD Unavailable [phone] Reason for Visit * Reason Onset Date Comments Health Maintenance 03/01/2012 Encounter Details Date Type Department Care Team (Late st Contact Info) Description 03/01/[address] [id number] Keya Perez PA-C [address] [place] [address] [place] [address] Health Maintenance Social History Tobacco Use Types Packs/Day Years Used Date Smoking Tobacco: Never Smokeless Tobacco: Never Alcohol Use Standard Drinks/Week Comments No 0 (1 standard drink = 0.6 oz pur e alcohol) Comments No Sex and Gender Information Value Date Recorded Sex Assigned at Not on file Legal Sex Female 4:16 AM CUSTOMER SOLUTIONS ARCHITECT Gender Identity Not on file Sexual Orientation Not on file documented as of this encounter Miscellaneous Notes * Telephone Encounter - Lu Arciniega - 03/01/2012 4:56 PM CST Please abstract the following data from this visit with this patient into the appropriate field in Epic: Pap smear done on this date: Scheduled for 2012 (approximately), by this group: [facility],results were normal. Thanks Lu B[facility] Scheduling OMER SOLUTIONS ARCHITECT documented in this encounter Plan of Treatment Not on file documented as of this encounter Visit Diagnoses Not on filedocumented in this encounter Additional Health Concerns Infection Onset Date Last Indicated Resolved Time Rule Out COVID-19 09/27/2019 09/27/2019 09/28/2019 10:10 PM CDT Rule Out COVID-19 11/27/2019 11/27/2019 11/27/2019 11:32 PM CDT Rule Out COVID-19 12/03/2019 12/03/2019 12/04/2019 6:31 PM CDT documented as of this encounter Care Teams Environmental Health Specialist Relationship Specialty Start Date End Date Keya Perez PA-C [address] [place] [address] [place] [address] PCP - General Family Practice 05/04/11 07/11/16 Christiane Love APRN HYDROPULPER OPERATOR [address] [place] [address] [place] [address] PCP - General Nurse Practitioner - Family 07/12/16 Christiane Love APRN HYDROPULPER OPERATOR [address] [place] [address] PCP - Assigned PCP 04/19/16 05/09/18 Christiane Love APRN HYDROPULPER OPERATOR [address] [place] [address] Assigned PCP 12/09/19 02/07/21 Christiane Love APRN HYDROPULPER OPERATOR [address] [place] [address] Assigned PCP 04/19/16 12/08/19 [place] [address] [place] [address] Assigned Musculoskeletal Provider 01/20/20 07/04/21 Joyce Mcduffie GC [address]50 [place] [address] Assigned OBGYN Provider 01/25/21 04/04/21 Christiane Love APRN HYDROPULPER OPERATOR [address] [place] [address] Assigned PCP 02/08/21 03/14/21 Yara Fregoso OD [address] [facility] [place] [address] Assigned Surgical Provider 03/15/21 09/10/22 Christiane Love APRN HYDROPULPER OPERATOR [address] [place] [place] [address] Assigned PCP 05/31/21 Christiane Love APRN [facility] [address] [address] [address] Assigned PCP 03/15/21 05/30/21 Yvette Graves MD [address] [place] [address] Physician Physical Medicine and Rehabilitation 07/22/22 documented as of this encounter
--- OUTSIDE RECORDS SUMMARY | 2024-03-09 07:18 | XMS_ITS | Clinical Summary ---
Author Organization [facility] Address [address] [address] Phone Care Team Providers Care Sql Database Developer Name Role Phone Unavailable Primary Care Provider Unavailabl e Allergies Active Allergy Reactions Criticality Noted Date Comments Omzmvike-Flfrpiwze-Eg RASH 10/23/2011 Medications No known medications Social History Tobacco Use Types Packs/Day Years Used Date Smoking Tobacco: Never Assessed Comments Unknown Sex and Gender Information Value Date Recorded Sex Assigned at Not on file Legal Sex Female 10:54 PM CONCRETE POURER Gender Identity Not on file Sexual Orientation Not on file Last Filed Vital Signs Vital Sign Reading Time Taken Comments Blood Pressure 133/89 10/23/2011 5:43 PM CDT Pulse 67 10/23/2011 5:43 PM CDT Temperature 36.9 C (98.5 F) 10/23/2011 5:43 PM CDT Respiratory Rate 12 10/23/2011 5:43 PM CDT Oxygen Saturation 99% 10/23/2011 5:43 PM CDT Inhaled Oxygen Concentration - - Weight - - Height - - Body Mass Index - - Plan of Treatment Health Maintenance Due Date Last Done Comments Cervical Cancer Screening 1983 Last pap w/ HPV Testing 1983 Last pap w/o HPV Testing 1983 MAMMO,SCREEN 1983 Hepatitis B Vaccine (Standin g Order) (1 of 3 - 19+ 3-dose series) 07/23/2002 PERTUSSIS (Standing Order) 07/23/2002 TETANUS (Standing Order) 07/23/2002 COVID-19 Vaccine (2023-2 5 season) 2023 Influenza Vaccine Seasonal (Standing Order) (#1) 2023 HPV Vaccine (Standing Order) Aged Out No longer eligible based on patient's age to complete this topic Pneumococcal/PCV20 Vaccine: Pediatrics (2-5 yrs) and At-Risk Patients (6-64 yrs) (Standing Order) Aged Out No longer eligible b ased on patient's age to complete this topic Insurance [employer] [facility] PRIME
[2024-03-09 15:47] LABS: Eosinophils Absolute Auto 0.12 K/uL (0.00-0.50); Eosinophils Percent Auto 1.8 % (0.0-7.0); Hemoglobin* 12.2 gm/dL (12.0-16.0); Immature Granulocytes Abs Auto 0.02 K/uL (0.00-0.30); Immature Granulocytes Pct Auto 0.3 %; Lymphocytes Absolute Auto 2.26 K/uL (0.90-2.90); Lymphocytes Percent Auto 34.5 % (20-44); Mean Corpuscular HGB Conc 31 gm/dL (32-36); Mean Corpuscular Hemoglobin 26 pg (26-34); Mean Corpuscular Volume 85 fL (80-100); Monocytes Percent Auto 6.7 % (0.0-11.0); Neutrophils Absolute Auto 3.72 K/uL (1.7-7.0); Neutrophils Percent Auto 56.7 % (42.0-72.0); Platelet Count* 186 K/uL (140-440); RDW Coefficient of Variation % 17.1 % (11.5-15.5); Red Blood Count 4.69 m/uL (4.00-5.20); White Blood Count* 6.56 K/uL (4.50-11.00)
[2024-03-09 16:01] LABS: Slide Review Reflex No
[2024-03-09 17:04] LABS: Ferritin* 19.3 ng/mL (6.24-137.0)
[2024-03-09 17:19] LABS: Vitamin B12* 516 pg/mL (243-894)
[2024-03-09 18:56] LABS: Iron* 109 ug/dL (37-170)
[2024-03-09 19:06] LABS: Percent Iron Saturation 33 % (20-50); Total Iron Binding Capacity 331 ug/dL (265-497)
--- NOTE | 2024-03-15 13:05 | URNOTE ---
Prior authorization is not required for Infed (J1750) per [place]. checked on Availity, Conf #[id number].
--- NOTE | 2024-03-16 12:15 | ONC.NURNOTE ---
Future lab orders faxed to [facility] lab per pt request.
[2024-03-21 11:44] VITALS: BP 110/74; PULSE 78; RESP 16; TEMP 35.8; O2SAT 99
[2024-03-21] MEDS: IRON DEXTRAN COMPLEX 25 MG in 0.9 % SODIUM CHLORIDE 100 ml 100 ML 402 MG IVPB (12:10)
[2024-03-21] MEDS: SODIUM CHLORIDE 0.9 % (FLUSH) 10 ML SYRINGE IVF (12:12)
[2024-03-21] MEDS: 0.9 % SODIUM CHLORIDE 500 ML IV (12:12)
[2024-03-21 12:59] VITALS: BP 115/77; PULSE 74; RESP 16; TEMP 36.9; O2SAT 98
[2024-03-21] MEDS: IRON DEXTRAN COMPLEX 975 MG in 0.9 % SODIUM CHLORIDE 250 ml 250 ML 269.5 MG IVPB (13:19)
[2024-03-21 14:26] VITALS: BP 119/78; PULSE 71; RESP 16; TEMP 36.3; O2SAT 98
[2024-03-21 15:00] VITALS: BP 123/71; PULSE 72; RESP 16; TEMP 36.5; O2SAT 99
== END 2024-06-03 23:59 | disposition home or self-care (01) ==
LOC: CCIC 11:00
PROVIDERS: PCP Family Medicine; Referring Provider Family Medicine; Visit Provider Internal Medicine Hematology & Oncology
DX: D50.9 Iron deficiency anemia, unspecified (principal)
CPT/HCPCS: 36415; 82270; 82607; 82728; 83540; 83550; 85025; 85379; 96365; 96376; 99214; G0463; J1750; J7030; J7050

== ENCOUNTER 2024-07-24 16:19 | Outpatient (CLI) | payer OTHER, SELFPAY | END 2024-07-24 16:20 | disposition home or self-care (01) | LOC: NFLDREF 08-01 03:11 | PROVIDERS: PCP Family Medicine; Referring Provider Family Medicine; Visit Provider Internal Medicine Hematology & Oncology | DX: D64.9 Anemia, unspecified (principal); E53.8 Deficiency of other specified B group vitamins; D50.9 Iron deficiency anemia, unspecified | CPT/HCPCS: 82607; 82728; 83540; 83550 ==

== ENCOUNTER 2024-07-27 08:15 | Outpatient (CLI) | payer OTHER, SELFPAY | END 2024-07-27 08:16 | disposition home or self-care (01) | LOC: NFLDREF 08-07 07:06 | PROVIDERS: PCP Family Medicine; Referring Provider Family Medicine; Visit Provider Physician Assistant Medical | DX: E03.9 Hypothyroidism, unspecified (principal); R53.83 Other fatigue; Z13.6 Encounter for screening for cardiovascular disorders; Z13.21 Encounter for screening for nutritional disorder | CPT/HCPCS: 80053; 80061; 82306; 84439; 84443 ==

== ENCOUNTER 2024-08-14 08:37 | Outpatient (RCR) | payer OTHER, SELFPAY | END 2025-02-10 23:59 | disposition home or self-care (01) | LOC: CCIC 08:37 | PROVIDERS: PCP Physician Assistant Medical; Visit Provider Internal Medicine Hematology & Oncology | DX: D50.9 Iron deficiency anemia, unspecified (principal); N92.0 Excessive and frequent menstruation with regular cycle; Z86.718 Personal history of other venous thrombosis and embolism; Z86.711 Personal history of pulmonary embolism; Z79.01 Long term (current) use of anticoagulants; E53.8 Deficiency of other specified B group vitamins | CPT/HCPCS: 99214; G0463 ==

== ENCOUNTER 2024-10-30 14:57 | Outpatient (CLI) | payer OTHER, SELFPAY | END 2024-10-30 14:58 | disposition home or self-care (01) | LOC: NFLDREF 11-04 04:58 | PROVIDERS: PCP Physician Assistant Medical; Referring Provider Physician Assistant Medical; Visit Provider Physician Assistant Medical | DX: E03.9 Hypothyroidism, unspecified (principal); E55.9 Vitamin D deficiency, unspecified | CPT/HCPCS: 82306; 84439; 84443 ==

== ENCOUNTER 2025-02-07 11:42 | Outpatient (CLI) | payer OTHER, SELFPAY | END 2025-02-07 11:43 | disposition home or self-care (01) | LOC: NFLDREF 02-12 09:07 | PROVIDERS: PCP Physician Assistant Medical; Referring Provider Physician Assistant Medical; Visit Provider Physician Assistant Medical | DX: E03.9 Hypothyroidism, unspecified (principal) | CPT/HCPCS: 84443 ==

== ENCOUNTER 2025-02-21 14:22 | Outpatient (CLI) | payer OTHER, SELFPAY ==
[2025-02-23 20:53] LABS: HPV Source Cervix
[2025-02-26 10:47] LABS: Pap Test Digital Imaging Done
== END 2025-02-21 14:23 | disposition home or self-care (01) ==
PROVIDERS: PCP Physician Assistant Medical; Visit Provider Registered Nurse
DX: N39.3 Stress incontinence (female) (male) (principal); Z12.4 Encounter for screening for malignant neoplasm of cervix; Z12.39 Encounter for other screening for malignant neoplasm of breast
CPT/HCPCS: 87086; 87624; 87625; 88141; 88142; 88175